=== PATIENT | male | born 1940 | race Caucasian/White ===

== ENCOUNTER 2017-11-04 06:31 | Day surgery (SDC) | payer OTHER ==
[2017-11-02 14:37] VITALS: BMI 26.0
--- NOTE | 2017-11-02 15:11 | PAT Medication Instructions ---
Service Date Nov 02, 2017. Current Home Medication List Albuterol Hfa (Ventolin Hfa), 2 PUFFS INH BID Allopurinol (Zyloprim), 300 MG PO QAM Aspirin (Aspirin Chewable), 81 MG PO HS Budesonide/Formoterol Fumarate (Symbicort 160/4.5 Inhaler ), 2 PUFFS INH BID PRN for PRN Calcitriol (Rocaltrol Cap), 1 CAP PO Thursday, Thu, Thu Coenzyme Q10 (Ubidecarenone) (Coq10), 100 MG PO QAM Diltiazem Hcl Extended Release (Diltiazem Hcl), 1 CAP PO QAM Fluticasone Propionate (Nasal) (Flonase Allergy Relief), 2 SPRAYS INTNAS PRN Furosemide (Lasix), 20 MG PO QAM Elbmatswhoc-Agwcnpuwtls-Zwb C- (Glucosamine Chondroitin), 1 TAB PO QAM Simvastatin (Zocor), 20 MG PO QPM Tiotropium [place] (Spiriva Handihaler), 1 CAP INH QAM Medication Instructions For Your Scheduled Surgery -Follow your surgeon's and medical secretary teacher's instructions for: Aspirin (Aspirin Chewable), 81 MG PO HS - Hold the following medications 2 weeks prior to surgery: Fnvjyeketfa-Httvpcsqfbi-Mop C- (Glucosamine Chondroitin), 1 TAB PO QAM Coenzyme Q10 (Ubidecarenone) (Coq10), 100 MG PO QAM - Hold the following medications the morning of surgery: Furosemide (Lasix), 20 MG PO QAM Calcitriol (Rocaltrol Cap), 1 CAP PO Thursday, Thu, Thu - Take the following medications the morning of surgery with a sip of water: Tiotropium [place] (Spiriva Handihaler), 1 CAP INH QAM Albuterol Hfa (Ventolin Hfa), 2 PUFFS INH BID Allopurinol (Zyloprim), 300 MG PO QAM Budesonide/Formoterol Fumarate (Symbicort 160/4.5 Inhaler ), 2 PUFFS INH BID PRN for PRN (if needed) Diltiazem Hcl Extended Release (Diltiazem Hcl), 1 CAP PO QAM Fluticasone Propionate (Nasal) (Flonase Allergy Relief), 2 SPRAYS INTNAS PRN ( if needed) - Take the following medications as scheduled the night before surgery: Simvastatin (Zocor), 20 MG PO QPM Albuterol Hfa (Ventolin Hfa), 2 PUFFS INH BID Budesonide/Formoterol Fumarate (Symbicort 160/4.5 Inhaler ), 2 PUFFS INH BID PRN for PRN (if needed) If you have any questions please call us at [phone] or [phone] or [phone]
[2017-11-02 16:16] LABS: CALCIUM 8.8 mg/dl (8.5-10.1); CREATININE 1.83 mg/dl (0.60-1.40); POTASSIUM 4.6 mmol/L (3.5-5.1)
[2017-11-02 16:18] LABS: PTT PATIENT 27.1 SECONDS (21.0-31.0)
[2017-11-02 16:43] LABS: BASO % 0.7 %; BASO ABS # 0.07 K/uL (0-0.2); EOS % 2.1 %; HEMATOCRIT 44.9 % (42-52); HEMOGLOBIN 14.8 g/dL (14.0-18.0); IG# 0.02 K/uL (0.00-0.02); LYMPH % 15.2 %; LYMPH ABS # 1.42 K/uL (1.2-3.4); MEAN CELL VOLUME 92.6 fL (80-100); MEAN CORPUSCULAR HEMOGLOBIN 30.5 pg (25-34); MEAN PLATELET VOLUME 11.2 fL (7.4-10.4); MONO % 6.8 %; MONO ABS # 0.64 K/uL (0.11-0.59); PLATELET COUNT 181 K/uL (130-400); RED CELL DISTRIBUTION WIDTH SD 46.9 fL (36.4-46.3); WHITE BLOOD COUNT 9.35 K/uL (4.8-10.8)
[~2017-11-04] VITALS: Ht 177.8 cm; Wt 83.0 kg
--- NOTE | 2017-11-04 05:41 | History and Physical ---
History & Physical Date of Service Nov 04, 2017. History & Physical 77-year-old gentleman presenting today for EBUS bronchoscopic evaluation of the mediastinum secondary to right upper lobe spiculated nodule and possible recurrence adenocarcinoma lung. 77-year-old male being consult for by Dr. Santiago from the Radiation Oncology Department. In 2011 the patient was noted to have a left upper lobe nodule and underwent wedge resection with lymphadenectomy by Dr. Grajeda on 12/17/2011. All lymph nodes were notably negative in the pathological size was 2.5 x 2.0 x 1.8 cm with some visceral pleural involvement but otherwise clean margins. At that time the patient was staged as 1A (pT1b, pN0, M0). Molecular analysis was notably negative. The patient was then advised to follow up clinically and radiographically with no further active treatment. Patient had a follow-up CT on 03/05/2017 which showed a 1.1 x 0.8 cm spiculated nodule in the right upper lobe retrospectively was most likely seen on a previous CT of the thorax on . The nodule did appear to grow between the 2 studies. Patient underwent a CT guided TTNA which was nondiagnostic and had a complication with pneumothorax requiring chest tube placement for lung reexpansion. Repeat/follow- up CT was performed 06/10/2017 and again on 09/08/2017. The latter study did show enlargement of the right upper lobe nodule not 1.1 x 1.1 x 1.4 cm. Patient then underwent PET-CT imaging on 10/01/2017 showing mild FDG avidity with maximum SUV of 3.05 in the posterior right parotid soft tissue nodule previously seen on prior PET from September 2011. The right upper lobe nodule had an SUV of 1.65 with no other obvious foci of disease in the hilar and/or mediastinal regions even other signs of radiographic lymph node enlargement. The patient has seen Dr. Gallego in [place] who believes this patient is a nonsurgical candidate at this time. Today the patient has no active pulmonary complaints. He currently denies: Cough , fever, chills, unintentional weight loss, pleurisy or active cardiac chest pain. Spirometry 10/02/2017 Pre FEV1/FVC 54 FEV1 1.63/61% FVC 3.03/83% DLCO 34% PmHx: 1. Moderately differentiated Adenocarcinoma lung 2. History of epistaxis 3. Parotid neoplasm PsHx: 1. Left upper lobe wedge resection and lymph node sampling 12/17/2011 2. Transthoracic needle aspiration--status post pneumothorax 04/08/2017 Social history 1. Tobacco: Former smoker/quit September 11, 2017 2. Mental status: 3. Occupation: 4. Alcohol: Family history Paternal grandfather: None known Paternal grandmother: Guided age 82 Maternal grandfather: Unknown Maternal grandmother: at age 80 Father: at age 82 of suicide Mother at age 69 of stroke Allergies 1. No Known Allergies Medications 1. Allopurinol (Zyloprim), 300 MG PO QAM 2. Aspirin (Aspirin Chewable), 81 MG PO QAM 3. Budesonide/Formoterol Fumarate (Symbicort 160/4.5 Inhaler ), 2 PUFFS INH BID 4. Calcitriol (Rocaltrol Cap), 1 CAP PO Thursday, Thu, Thu 5. Calcium Carbonate-Vitamin D (Calcium + D), PO QAM 6. Coenzyme Q10 (Ubidecarenone) (Co Q-10), PO QAM 7. Diltiazem Hcl Extended Release (Diltiazem Hcl), 1 CAP PO QAM 8. Furosemide (Lasix), 20 MG PO QAM 9. Xqqdpdnyieq-Cntqqjyiddo-Xtb C- (Glucosamine Chondroitin), 1 TAB PO QAM 10. Simvastatin (Zocor), 20 MG PO QPM 11. Tiotropium [place] (Spiriva Handihaler), 1 CAP INH QAM 12. Amlodipine DAILY 13. Fluticasone 50 MCG DAILY 14. Ventolin on a p.r.n. basis Review of Systems Constitutional: negative. Eyes: negative. ENT: negative. Cardiovascular: negative. Respiratory: negative. Gastrointestinal: negative. Genitourinary: negative. Musculoskeletal: negative. Integumentary: negative. Neurological: negative. Psychiatric: negative. Endocrine: negative. Hematologic/Lymphatic: negative. Active Problems 1. Epistaxis (R04.0) 2. 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 Tonsillar hypertrophy (J35.1) Surgical History 1. Denied: History of Surgery Family History 1. Denied: Family history of Cancer 2. Denied: Family history of Diabetes Mellitus 3. Denied: Family history of Hypertension Social History Denied: History of Alcohol Smoking Cigarettes Current Meds 1. AmLODIPine Besylate 10 MG Oral Tablet; Therapy: (Recorded:27Aug2011) to Recorded 2. Aspirin Low Dose 81 MG TABS; Therapy: (Recorded:27Aug2011) to Recorded 3. B Complex Oral Capsule; Therapy: (Recorded:27Aug2011) to Recorded 4. Calcium + D TABS; Therapy: (Recorded:27Aug2011) to Recorded 5. Co Q10 100 MG Oral Capsule; Therapy: (Recorded:27Aug2011) to Recorded 6. Fish Oil Concentrate CAPS; Therapy: (Recorded:27Aug2011) to Recorded 7. Flonase 50 MCG/ACT SUSP; Therapy: (Recorded:27Aug2011) to Recorded 8. Furosemide 20 MG Oral Tablet; TAKE 1 TABLET DAILY NEEDED; Therapy: 20Oct2017 to Recorded 9. Lasix 20 MG Oral Tablet; Therapy: (Recorded:27Aug2011) to Recorded 10. Multi-Vitamin TABS; Therapy: (Recorded:27Aug2011) to Recorded 11. Niacin 500 MG Oral Tablet; Therapy: (Recorded:27Aug2011) to Recorded 12. ProAir HFA AERS; Therapy: (Recorded:27Aug2011) to Recorded 13. Rocaltrol 0.25 MCG Oral Capsule; Take 1 capsule twice daily; Therapy: 20Oct2017 to Recorded 14. Simvastatin 20 MG Oral Tablet; TAKE 1 TABLET DAILY; Therapy: 20Oct2017 to (Evaluate:15Oct2018) Recorded 15. Ventolin HFA 108 (90 Base) MCG/ACT Inhalation Aerosol Solution; INHALE 2 PUFFS EVERY 4 HOURS NEEDED; Therapy: 20Oct2017 to Recorded 16. Zyloprim 300 MG Oral Tablet; TAKE 1 TABLET DAILY DIRECTED; Therapy: 20Oct2017 to Recorded Allergies 1. No Known Drug Allergies Vitals Vital Signs Recorded: 20Oct2017 02:23PM Blood Pressure: 126 / 80, RUE, Sitting O2 Saturation: 91, RA Height: 5 ft 9.5 in Weight: 188 lb BMI Calculated: 27.36 BSA Calculated: 2.02 Temperature: 98 F Respiration: 13 Heart Rate: 63 Physical Exam Constitutional General appearance: No acute distress, well appearing and well nourished. Eyes Conjunctiva and lids: No swelling, erythema, or discharge. Pupils and irises: Equal, round and reactive to light. Ears, Nose, Mouth, and Throat External inspection of ears and nose: Normal. Otoscopic examination: Tympanic membrance translucent with normal light reflex. Canals patent without erythema. Oropharynx: Normal with no erythema, edema, exudate or lesions. Pulmonary Respiratory effort: No increased work of breathing or signs of respiratory distress. Auscultation of lungs: Clear to auscultation. Cardiovascular Palpation of heart: Normal PMI, no thrills. Auscultation of heart: Abnormal. 2/6 systolic murmur best appreciated right upper sternal border. Examination of extremities for edema and/or varicosities: Normal. Abdomen Abdomen: Non-tender, no masses. Liver and spleen: No hepatomegaly or splenomegaly. Lymphatic Palpation of lymph nodes in neck: No lymphadenopathy. Musculoskeletal Gait and station: Normal. Digits and nails: Normal without clubbing or cyanosis. Inspection/palpation of joints, bones, and muscles: Normal. Skin Skin and subcutaneous tissue: Normal without rashes or lesions. Neurologic Cranial nerves: Cranial nerves 2-12 intact. Reflexes: 2+ and symmetric. Sensation: No sensory loss. Psychiatric Orientation to person, place and time: Normal. Mood and affect: Normal.
[~2017-11-04 06:31] MED LIST: ALLO300T2 PO; ASPCH81X PO; CALC0.2510 PO; COEN100C7 PO; DILT240C75 PO; FLUT0.15 INTNAS; FURO20TA PO; GLUCTAB7 PO; LACTATED RINGER'S 1000ML 1,000 ML IV SCH; SIMV20TA2 PO; SPRIN/30 INH; SYMIN160 INH; VNTHFA/IN INH
[2017-11-04] MEDS ORDERED: PROPOFOL IV EMULSION 10 MG/ML 20 ML VIAL IV ONE ×2 (07:02→09:20)
[2017-11-04] MEDS ORDERED: FENTANYL CITRATE INJ 50 MCG/1 ML 2 ML VIAL ONE (07:02)
[2017-11-04 07:07] VITALS: BP 187/88; PULSE 83; TEMP 36.8; O2SAT 92; Ht 177.8 cm; Wt 83.0 kg
[2017-11-04] MEDS ORDERED: PHENYLEPHRINE 100MCG/ML 5ML SYR IV PRN (07:15)
[2017-11-04] MEDS ORDERED: ATROPINE SULFATE 0.1 MG/ML 5ML SYR IV PRN (07:15)
[2017-11-04] MEDS ORDERED: HYDROmorphone INJ 1 MG/ML SYR IV PRN (07:15)
[2017-11-04] MEDS ORDERED: ONDANSETRON INJ 2 MG/ML 2 ML VIAL IV PRN (07:15)
[2017-11-04] MEDS ORDERED: EpHEDrine SULFATE INJ 50 MG/ML AMP IV PRN (07:15)
[2017-11-04] MEDS ORDERED: PROMETHAZINE HCL INJ 12.5 MG in SODIUM CHLORIDE 0.9% 50ML 50 ML IV PRN (07:15)
[2017-11-04] MEDS ORDERED: FENTANYL CITRATE INJ 50 MCG/1 ML 2 ML VIAL IV PRN (07:15)
--- NOTE | 2017-11-04 07:26 | History & Physical Bridge Note ---
H&P Re-Evaluation Bridge Note: I have examined the patient, reviewed the History & Physical and in the interval since the performance of the History & Physical I have noted the following changes of clinical significance: No changes noted
[2017-11-04] MEDS ORDERED: KETAMINE HCL INJ 50 MG/ML 10 ML VIAL ONE (07:40)
[2017-11-04] MEDS ORDERED: PHENYLEPHRINE 100MCG/ML 5ML SYR ONE (08:31)
[2017-11-04] MEDS ORDERED: EpHEDrine SULFATE 50MG/5ML SYR ONE (08:31)
[2017-11-04] MEDS ORDERED: SUCCINYLCHOLINE CHLORIDE 20 MG/ML 10 ML VIAL IV ONE (08:31)
[2017-11-04] MEDS ORDERED: ONDANSETRON INJ 2 MG/ML 2 ML VIAL ONE (08:31)
[2017-11-04] MEDS ORDERED: LIDOCAINE HCL 2% 2 ML VIAL (20MG/ML) ONE (08:33)
[2017-11-04] MEDS ORDERED: SUCCINYLCHOLINE 100MG/5ML SYR IV ONE (08:42)
[2017-11-04] MEDS ORDERED: PHENYLEPHRINE HCL INJ 10 MG/ML VIAL ONE (09:20)
--- NOTE | 2017-11-04 09:33 | Bronchoscopy Procedure Note ---
Bronchoscopy Procedure Note Procedure: Flexible-Bronchoscopy, EBUS, FNA, BAL Consent: Obtained through the patient placed into the chart Pre-Procedural Dx: History of adenocarcinoma the lung with new lung nodule Post-Procedural Dx: Lung nodule Analgesia: GETA Sedation: GETA Procedure: The Olympus video bronchoscope and EBUS scope were used for this procedure Initially the flexible bronchoscope was used for evaluation of the airways. The ET tube was notably 5cm above the level of the lemuel. Trachea: Visualized portion of the trachea was anatomically within normal limits Lemuel: Anatomically within normal limits Right bronchial tree: Right mainstem bronchus: Anatomically within normal limits Right upper lobe: Anatomically within normal limits Bronchus intermedius: Anatomically within normal limits Right middle lobe: Anatomically within normal limits Right lower lobe: Anatomically within normal limits Findings: No significant findings noted Left bronchial tree: Left mainstem bronchus: Anatomically within normal limits Left upper lobe: Suture lines intact no signs of breakdown Lingula: Suture lines intact no signs of breakdown Left lower lobe: Anatomically within normal limits Findings: No significant findings noted EBUS/JARROD: FNA Elian Stations: 7: # of passes 6 4R: # of passes 3 11R: # of passes 3 4L: # of passes 3 11L: # of passes 3 BAL: Left lower lobe EBL: 5cc Complications: None Follow-up: PACU
--- NOTE | 2017-11-04 09:38 | Discharge Instructions ---
Discharge Instructions Date of Service Nov 04, 2017. Admission Reason for Admission: Lung Nodule Discharge Discharge Diagnosis / Problem: mediastinal adenopathy Discharge Goals Goal(s): Diagnostic testing Activity Recommendations Activity Limitations: resume your previous activity . Instructions / Follow-Up Instructions / Follow-Up Follow-up with Dr. Santiago from the radiation oncology department as well as Dr. Roman from the pulmonary division Current Hospital Diet Patient's current hospital diet: Discharge Diet Recommended Diet: Regular Diet Procedures Procedures Performed: Flexible bronchoscopy, Endobronchial Ultrasound, bronchial levage, fine needle aspiration. Pending Studies Studies pending at discharge: no Medical Emergencies . Who to Call and When: Medical Emergencies: If at any time you feel your situation is an emergency, please call 911 immediately. . Non-Emergent Contact Non-Emergency issues call your: [employer] . . "Provider Documentation" section prepared by Cornel Roman. . VTE Core Measure Inpt VTE Proph given/why not?: Other Anticoagulation (aspirin)
[2017-11-04 10:35] VITALS: BP 157/78; PULSE 66; TEMP 36.5; O2SAT 96
--- NOTE | 2017-11-04 10:53 | Anesthesiology Progress Note ---
Anesthesia Post Op Note Date & Time Nov 04, 2017 at 10:53 Vital Signs Pain Intensity: 0 Vital Signs Past 12 Hours Date Time Temp Pulse Resp B/P (MAP) Pulse Ox O2 Delivery O2 Flow Rate FiO2 11/04/17 10:25 36.6 66 18 158/80 99 Room Air 11/04/17 10:15 66 18 142/86 99 Oxymask 10 11/04/17 10:05 73 18 152/87 91 Room Air 11/04/17 09:55 69 18 140/80 100 Oxymask 10 11/04/17 09:45 36.4 77 18 163/87 95 Oxymask 10 11/04/17 07:07 36.8 83 20 187/88 (121) 92 Room Air Notes Mental Status: alert / awake / arousable, participated in evaluation Pt Amnestic to Procedure: Yes Nausea / Vomiting: adequately controlled Pain: adequately controlled Airway Patency, RR, SpO2: stable & adequate BP & HR: stable & adequate Hydration State: stable & adequate Anesthetic Complications: no major complications apparent
[2017-11-04 11:04] VITALS: BP 154/80; PULSE 72; O2SAT 95
[2017-11-04 11:40] VITALS: BP 153/80; PULSE 69; O2SAT 94
[2017-11-04 12:30] VITALS: BP 148/79; PULSE 68; TEMP 36.7; O2SAT 97
== END 2017-11-04 12:55 | disposition home or self-care (01) ==
LOC: C.ACU 06:31
PROVIDERS: ATTEND Internal Medicine Critical Care Medicine
DX: R91.1 Solitary pulmonary nodule (principal); Z85.118 Personal history of other malignant neoplasm of bronchus and lung; Z87.891 Personal history of nicotine dependence; Z79.82 Long term (current) use of aspirin; Z79.899 Other long term (current) drug therapy

== ENCOUNTER → 2018-01-07 | Outpatient (CLI) | payer OTHER ==
[~2018-01-07] MED LIST changes: -LACTATED RINGER'S 1000ML 1,000 ML IV SCH
[2018-01-07 13:37] VITALS: BP 146/84; PULSE 69; TEMP 36.7; O2SAT 93
--- NOTE | 2018-01-07 15:27 | Radiation Oncology Follow-Up ---
Radiation Oncology Follow-Up Date of Visit Jan 07, 2018. Reason For Visit One-month follow-up and cancer survivorship care plan Radiation Completion Date SBRT 12/04/17 Diagnosis (1) Lung cancer Status: Acute Onset Date: 2015 Stage: l (Clinical diagnosis) Permanent Comment: Status post left upper lobectomy 12/17/2011 Adenocarcinoma Stage pT1 pN0 M0 Right upper lobe nodule Status post attempt at percutaneous biopsy unsuccessful Clinically apparent lung carcinoma EBUS November 04, 2017, nodes negative. Status post completion of radiation therapy December 04, 2017, stereotactic body radiation therapy utilizing volumetric modulated arc therapy. He received 5000 cGy. Last Edited By: Rose Mary Amezquita on Dec 11, 2017 09:33 History of Present Illness Mr. Jamie Mccurdy presented in 2011 with a left upper lobe lesion. On 2011 Dr. Grajeda performed a left upper lobe wedge resection and lymph node sampling. The aortopulmonary window node and the inferior pulmonary ligament node were benign. A total of 4 lymph nodes were sampled and all negative. The left upper lobe wedge resection confirmed an adenocarcinoma moderately differentiated measuring 2.5 x 2.0 x 1.8 cm. There was visceral pleural invasion identified but clear margins with no lymphovascular invasion appreciated. The presumption AJCC pathologic stage was pT1b pN0. Case: 12-0 -S. Molecular analysis was performed for EGFR mutation and no mutation was noted. FISH analysis was performed for ALK which was also negative. No adjuvant therapy was recommended or delivered. Patient however was followed closely. The patient had a CT scan of the chest performed on 02/02/2016. The report stated no suspicious lesions were appreciated in the lungs. However following a subsequent scan which did show a lesion in the original scan was reviewed and in retrospect that lesion was felt to have been present in January 2016. Patient had a repeat CT scan on 03/05/2017. This then showed a 1.1 x 0.8 cm spiculated nodule in the right upper lobe that was noted in retrospect on the previous scan but did appear to be slightly larger. Therefore on 04/07/[address]-guided biopsy attempt with 8 passes according to the patient. Unfortunately this result was unsuccessful and the patient developed a pneumothorax with subsequent chest tube placement. The CT-guided procedure did identify the lesion though because of respiration it was difficult to ensure adequate needle placement. On 06/10/2017 patient underwent a repeat CT of the chest without contrast. And again on 09/08/[address] scan was performed. This latter study showed a right upper lobe nodule measuring 1.1 x 1.1 x 1.4 cm clearly showing slowly progressive disease. On 10/01/2017 patient underwent a PET/CT scan. This showed mild FDG uptake with an SUV max of 3.05 in a 4.4 x 10.1 mm posterior right parotid soft tissue nodule with a short dimension of 9.7 mm previously seen on a prior PET from September 2011 which showed and intense FDG uptake with an SUV max of 5.98 in the left parotid region. Asymmetric mild increased uptake, right greater than left was noted in the tonsillar pillars without identifiable nodular mass. In the chest a very mild FDG uptake with an SUV max of 1.65 was noted corresponding to the right upper lobe lung nodule. There was no obvious foci of increased activity in the hilar or mediastinal regions. Prominent pretracheal lymph node is noted there was no evidence of disseminated disease appreciated. Patient return to see Dr. Gallego at [place]. He noted that the patient continues to have significant comorbidities and felt that he was not a surgical candidate to excise this right upper lobe lesion. Given its location he felt it would be very difficult to reach from bronchoscopic approach and he had already failed a percutaneous approach. The lesion is enlarging and appears consistent with a carcinoma. He discussed with the patient the possibility of empiric treatment of this nodule utilizing potential stereo tactic radiation His case was discussed at the lung cancer conference tumor board on 10/15/2017. The images were reviewed. Including CTs of the chest from 03/04/2017, 2016, 09/07/2007 seen as well as a PET/CT from 09/30/2017. It was recommended that he go forward with a EBUS. This was performed by Dr. Roman on 2017. Multiple FNA biopsies were taken of the lymph nodes. These did not show malignant cells. It was felt that the patient should go forward with stereotactic radiation therapy. Images were reviewed and showed progression of the lesion. He completed stereotactic body radiation therapy December 04, 2017. 5 fractions were given. He received 5000 cGy. He was treated utilizing stereotactic body radiation therapy. Interim History He has been stable over the past month. He denies any change in his respiratory status. He does get short of breath with going up steps. This is unchanged from previous. He recently had an upper respiratory infection. His was also sick. This is improving. He started using Robitussin and the cough has greatly improved. This is productive of sputum. There is no hemoptysis. He has had no fever or chills. He did not develop any areas of skin irritation following the treatment. Denied issues with fatigue. Allergies Coded Allergies: No Known Allergies (Unverified , 11/04/17) Home Medications Scheduled Albuterol Hfa (Ventolin Hfa), 2 PUFFS INH BID Allopurinol (Zyloprim), 300 MG PO QAM Aspirin (Aspirin Chewable), 81 MG PO HS Calcitriol (Rocaltrol Cap), 1 CAP PO Thursday, Thu, Thu Coenzyme Q10 (Ubidecarenone) (Coq10), 100 MG PO QAM Diltiazem Hcl Extended Release (Diltiazem Hcl), 1 CAP PO QAM Fluticasone Propionate (Nasal) (Flonase Allergy Relief), 2 SPRAYS INTNAS PRN Furosemide (Lasix), 20 MG PO QAM Pkekrbidrey-Nrhttpkifko-Ksp C- (Glucosamine Chondroitin), 1 TAB PO QAM Simvastatin (Zocor), 20 MG PO QPM Tiotropium [place] (Spiriva Handihaler), 1 CAP INH QAM Scheduled PRN Budesonide/Formoterol Fumarate (Symbicort 160/4.5 Inhaler ), 2 PUFFS INH BID PRN for PRN Review of Systems Gastrointestinal: Symptoms: WNL Oral: Symptoms: No Problems Respiratory: Symptoms: SOB With Exertion, Productive Cough Other Respiratory: Productive cough of thick yellow sputum Urinary: Symptoms: WNL, Frequency Skin: Symptoms: No Problems Additional Notes: He completed a distress management report and answer "no" to all questions. Physical Exam Vital Signs Date Time Temp Pulse Resp B/P (MAP) Pulse Ox O2 Delivery O2 Flow Rate FiO2 01/07/18 13:37 36.7 69 16 146/84 93 ECOG Performance Status: 0 General Appearance: no apparent distress Eyes: normal inspection, EOMI ENT: normal ENT inspection, hearing grossly normal Respiratory/Chest: no respiratory distress, no accessory muscle use, + decreased breath sounds Cardiovascular: regular rate, rhythm, no gallop, no murmur Neurologic/Psychiatric: no motor/sensory deficits, alert, normal mood/affect Skin: warm/dry Pain Management Patient Reports Pain: No Pain Management Plan He denies pain therefore requires no pain management. Laboratory Laboratory Results: not applicable Pathology Pathology Results: not applicable Imaging Imaging Studies: were reviewed, and pertinent findings noted in HPI Assessment & Plan Plan: The patient was also seen and examined by Dr. Sousa. We will plan a recheck CT of the chest in 3 months. Will have a visit following the CAT scan. This settled will be without contrast. He has elevated BUN and creatinine. He will continue the Robitussin for his upper respiratory infection. Today we completed a cancer survivorship care plan. A copy of the document was given to the patient. He was given a survivorship booklet. He brought in a paper today to be filled out for insurance. That was completed and a copy was put into [employer]. He may call our office if he has any questions or concerns in the interim. Assessment & Plan (Attending) I agree with note created by Rose Mary Amezquita PA-C. I reviewed the patient's chart and information with her. I have examined and evaluated the patient. I reviewed relevant clinical information and answered the patient's and/or family' s questions. 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 I spent 20 minutes reviewing information, preparing the survivorship document, and completing this note. Total Time (Attending) In Follow-Up I spent 15 minutes examining and counseling the patient. STEEPING PRESS OPERATOR Copy To Jeffry Gallego M.D.; Ti Sommer DO; Belle Sousa M.D.; Cornel Roman MD Problem Qualifiers (1) Lung cancer: Laterality: right Lung location: upper lobe of lung Qualified Codes: C34.11 - Malignant neoplasm of upper lobe, right bronchus or lung
== END | disposition home or self-care (01) ==
LOC: C.ONC 13:24
PROVIDERS: ATTEND Physician Assistant Medical
DX: Z08 Encounter for follow-up examination after completed treatment for malignant neoplasm (principal); Z92.3 Personal history of irradiation; Z85.118 Personal history of other malignant neoplasm of bronchus and lung

== ENCOUNTER 2019-09-05 08:49 | Inpatient (IN) ==
[2019-09-05] MEDS ORDERED: SODIUM CHLORIDE 0.9% 1000ML 1,000 ML IV SCH (10:00)
--- NOTE | 2019-09-05 10:18 | XRay Report ---
XR chest 1V portable CLINICAL HISTORY: 79 years-old Male presenting with weakness. TECHNIQUE: Portable upright AP view of the chest was obtained. COMPARISON: 09/02/2019. FINDINGS: Atherosclerosis and tortuosity of the thoracic aorta as on prior exam. Cardiac silhouette mildly enla rged. Heterogeneous radiolucency of the lungs. Decreased pulmonary vascular prominence. Persistent li near opacity in the right mid lung and mild added density of the right lung base. No large effusion o r pneumothorax. Degenerative changes of the thoracic spine. Osteopenia may be present. Upper abdomen normal. IMPRESSION: 1. Stable right mid lung and minimal bibasilar opacities likely atelectasis or scarring. 2. Decreased volume overload. 3. Tortuosity of the thoracic aorta. 4. Mild cardiomegaly. Electronically signed by: Garth Pickens M.D. 09/05/2019 10:17 AM
[2019-09-05 10:28] LABS: Hematocrit (blood only) 34.6 % (42-52); Hemoglobin 11.4 g/dL (14.0-18.0); Mean Corpuscular Hemoglobin 30.6 pg (25-34); Mean Corpuscular Hgb Conc 32.9 g/dL (32-36); Mean Corpuscular Volume 92.8 fL (80-100); Mean Platelet Volume 12.8 fL (7.4-10.4); Platelet Count 84 K/uL (130-400); RDW Coefficient of Variation 15.6 % (11.5-14.5); RDW Standard Deviation 50.1 fL (36.4-46.3); Red Blood Count 3.73 M/uL (4.7-6.1); White Blood Count 6.57 K/uL (4.8-10.8)
[2019-09-05 10:32] LABS: Albumin Level 2.5 gm/dl (3.4-5.0); BUN Creatinine Ratio 18.3 (10-20); Calcium 8.6 mg/dl (8.5-10.1); Creatinine Clr Calc Pharmacy 22.9 ml/min; Est GFR (African American) 25.5; Magnesium 1.8 mg/dl (1.8-2.4); Potassium 4.5 mmol/L (3.5-5.1)
[2019-09-05 10:36] LABS: Basophils # (auto) 0.01 K/uL (0-0.2); Basophils % (auto) 0.2 %; Eosinophils # (auto) 0.01 K/uL (0-0.5); Eosinophils % (auto) 0.2 %; Immature Granulocytes # (auto) 0.09 K/uL (0.00-0.02); Immature Granulocytes % (auto) 1.4 %; Lymphocytes # (auto) 0.15 K/uL (1.2-3.4); Lymphocytes % (auto) 2.3 %; Monocytes # (auto) 0.49 K/uL (0.11-0.59); Monocytes % (auto) 7.5 %; Neutrophils # (auto) 5.82 K/uL (1.4-6.5); Neutrophils % (auto) 88.4 %; Ovalocytes 1+
[2019-09-05 10:43] LABS: Albumin Globulin Ratio 0.9 (0.9-2); Bilirubin,Total 1.1 mg/dl (0.2-1); Globulin 2.9 gm/dl (2.5-4.0); Thyroid Stimulating Hormone 1.53 uIu/ml (0.300-4.500); Total Protein 5.4 gm/dl (6.4-8.2); Troponin I 0.024 ng/ml (0-0.045)
--- NOTE | 2019-09-05 12:44 | Ultrasound Report ---
BILATERAL LOWER EXTREMITY VENOUS DOPPLER CLINICAL HISTORY: BLE swelling, lung CA COMPARISON STUDY: No previous studies for comparison. TECHNIQUE: Sonography of the deep venous system of the bilateral lower extremities was performed. Co mpression and augmentation were evaluated. FINDINGS: The bilateral common femoral, superficial femoral and popliteal veins were compressible. A ugmentation was normal. Flow was shown within the deep calf vessels. IMPRESSION: No evidence of deep venous thrombus within the bilateral lower extremities. Electronically signed by: Sid Armstrong M.D. 09/05/2019 12:42 PM
[2019-09-05 13:34] LABS: Appearance Urine Clear (Clear); Bacteria Urine Automated Negative (Negative); Blood Urine Negative (Negative); Color Urine Dark Yellow; Glucose Urine UA Negative (Negative); Ketones Urine Trace (Negative); Leukocyte Esterase Urine Negative (Negative); Nitrite Urine Negative (Negative); Protein Urine Trace (Negative); RBC Urine Automated 0-4 /hpf (0-4); Specific Gravity Urine 1.021 (1.000-1.030); Urobilinogen Urine Negative (Negative)
[2019-09-05 13:37] LABS: Bilirubin Urine Negative (Negative); Ictotest Urine Negative (Negative)
--- NOTE | 2019-09-05 14:41 | Emergency Department Note ---
Entered by Rosita Gatica acting as a scribe for Iraida Shaw MD History of Present Illness General Chief complaint: Swelling/Edema to Extremity Stated complaint: SWELLING IN THE FEET, SOB Time Seen by Provider: 09/05/19 09:39 Source: patient and family (sister in law) History of Present Illness Onset (ago): day(s) 3 Location: lower extremity (bilateral) Pain Consistency: + other (episode) Maximum Pain Intensity: 0 Quality: + other (swelling/edema) Exacerbated By: + other (chemotherapy/radiation treatment) Associated symptoms: + other (weakness/exhaustion, confusion, shortness of breath, right sided abdominal pain, diarrhea, loss of appetite, decreased fluid intake) The patient is a 79 year old male that is presenting to the Emergency Room with complaints of an episode of edema in his bilateral lower legs that started after being discharged from the ED 3 days ago. His sister in law states that the patients legs have become increasingly swollen since being discharged, so she decided to bring him back in today. The patients sister in law reports that the patient was seen in the ED for increasing confusion that started around 5 days ago following his last round of chemotherapy for lung cancer with Dr. Sousa. His sister in law notes that the patient has been extremely exhausted and weak since starting his treatment. His sister in law reports that the patient has been sleeping almost constantly sitting up on the couch as he is unable to lie flat secondary to discomfort and difficulty breathing. His sister in law notes that the patient appears to be writhing in pain whenever he tries to lie flat. His sister in law states that the patient has been having difficulty breathing, but she notes that she has not been able to get an O2 saturation level on the patient for the past two days. His sister in law reports that the patient has not been willing to use his nebulizer treatment. His sister in law notes that the patient has not been eating or drinking normally but was able to drink a bottle of water yesterday. His sister in law reports that she has been able to get the patient to takes his medications. His sister in law states that the patient has had some severe right-sided abdominal pain all of last week. The patient notes that the pain is not present currently but has been located right above his right hip previously. His sister in law reports that the patient has had severe diarrhea that has subsided somewhat but is still present. His sister in law notes that the patient has a history of kidney and cardiac issues. His sister in law states that the patient has been able to urinate on his own without issue. His sister in law reports that the patient has been able to get himself to the bathroom as well but notes that he has to stop and rest on the way there. His sister in law notes that the patient has additional positive nodes outside of the lungs on the trachea in addition to the mass in his lungs. His sister in law states that the patient has possible masses in his prostate as well. Home Medications Home Medications Medication Instructions Recorded Confirmed Type fluticasone propionate 50 1 sprays INTRANASAL DAILY PRN gm 05/20/19 09/05/19 History mcg/actuation nasal spray,suspension albuterol sulfate 90 mcg/actuation 1 puffs INH Q4H PRN 05/24/19 09/05/19 History breath activated powder inhaler allopurinol 300 mg tablet 300 mg PO QAM 05/24/19 09/05/19 History budesonide-formoterol HFA 160 2 puffs INH BID 05/24/19 09/05/19 History mcg-4.5 mcg/actuation aerosol inhaler calcitriol 0.25 mcg capsule 0.25 mcg PO QAM 05/24/19 09/05/19 History furosemide 20 mg tablet 20 mg PO QAM 05/24/19 09/05/19 History tiotropium bromide 1.25 2 puffs INH QAM 05/24/19 09/05/19 History mcg/actuation mist for inhalation cholecalciferol (vitamin D3) 1,000 unit PO QAM 05/25/19 09/05/19 History [Vitamin D3] coQ10 (ubiquinol) 100 mg PO QAM 05/25/19 09/05/19 History vitamin B complex 1 tab PO QAM 05/25/19 09/05/19 History metoprolol succinate 25 mg capsule 50 mg PO QAM ea 07/20/19 09/05/19 History sprinkle, ext. release 24 hr ondansetron HCl 8 mg tablet 8 mg PO TID PRN 07/20/19 09/05/19 History prochlorperazine maleate 10 mg 10 mg PO Q6H PRN tab 07/20/19 09/05/19 History tablet simvastatin 20 mg tablet 10 mg PO [id number] tab 07/20/19 09/05/19 History albuterol sulfate 2.5 mg INHALATION Q4H PRN 09/02/19 09/05/19 History aspirin 81 mg PO HS 09/02/19 09/05/19 History carboplatin 0 mg IV WE 09/02/19 09/05/19 History dexamethasone 12 mg PO UD 09/02/19 09/05/19 History diphenhydramine HCl [Benadryl] 25 mg PO UD 09/02/19 09/05/19 History famotidine 10 mg PO UD 09/02/19 09/05/19 History loperamide [Imodium A-D] 2 mg PO Q3H PRN 09/02/19 09/05/19 History paclitaxel 0 mg IV WE 09/02/19 09/05/19 History Allergies Allergy/AdvReac Type Severity Reaction Status Date / Time No Known Allergies Allergy Verified 09/05/19 09:13 Past Med/Surg History Medical History Bronchitis (Deleted) Cancer LUNG CANCER COPD (chronic obstructive pulmonary disease) Emphysema of lung Gout Hyperlipidemia Hypertension Kidney disease (Deleted) "FOLLOWS WITH NEPHROLOGY" Lesion of left lung Osteoarthritis Prostate cancer ? NEW DX PER PETS SCAN Right pulmonary lesion Sleep apnea CPAP Surgical History H/O aortic aneurysm repair 2018 History of colonoscopy History of tooth extraction S/P bronchoscopy with biopsy (11/04/17) PER (PROCEDURE ATTEMPTED) S/P bronchoscopy with biopsy (06/10/19) Endobronchial Ultrasound with Biopsies Dr. Frazier 06/10/19 S/P partial lobectomy of lung (12/17/11) Dr. Grajeda Status post partial lobectomy of lung Family History (Updated 09/05/19 @ 15:31 by Sergio Gonzalez DO) Mother Hypertension Stroke Family history of diabetes mellitus Father Suicide Social History Preferred Language: Croatian Communication Ability: Effective Visual Impairment: No Limitations Chief Program Officer Required: No Beliefs That Will Affect Care: None marital status: Current Living Situation: Spouse current occupational status: retired Other Information That Helps Us Care for You: No Feels Safe at Home: Yes Safety Concerns: Feels Safe At This Time Smoking Status: Former smoker Tobacco Type: cigarettes ; Cigarettes Per Day: 10 ; Second Hand Exposure: No ; Hx Alcohol Use: Yes Alcohol type: wine Alcohol type Comment: rarely Hx Substance Use: No Review of Systems See HPI for pertinent positives & negatives. and A total of 10 systems reviewed and were otherwise negative Physical Exam Vital Signs Vital Signs - 24 hr 09/05/19 10:10 09/05/19 10:20 09/05/19 10:25 Pulse Rate 93 H 88 Pulse Rate [Exercises] Pulse Rate [Finger] 68 Pulse Rate from SpO2 Sensor 86 Respiratory Rate 19 19 16 Respiratory Rate [Exercises] Respiratory Effort / Characteristics Respiratory Depth Blood Pressure Blood Pressure [Right Arm] 104/68 Blood Pressure Mean Blood Pressure Mean [Right Arm] 80 Blood Pressure Position [Right Arm] Pulse Oximetry 91 97 Pulse Oximetry [Exercises] Oxygen Delivery Method Room Air Room Air Room Air 09/05/19 10:30 09/05/19 10:31 09/05/19 10:40 Pulse Rate 87 88 88 Pulse Rate [Exercises] Pulse Rate [Finger] Pulse Rate from SpO2 Sensor 100 H 96 H 85 Respiratory Rate 27 H 24 23 Respiratory Rate [Exercises] Respiratory Effort / Characteristics Respiratory Depth Blood Pressure 110/64 Blood Pressure [Right Arm] Blood Pressure Mean 76 Blood Pressure Mean [Right Arm] Blood Pressure Position [Right Arm] Pulse Oximetry 92 Pulse Oximetry [Exercises] Oxygen Delivery Method Room Air Room Air Room Air 09/05/19 10:50 09/05/19 11:00 09/05/19 11:01 Pulse Rate 88 87 87 Pulse Rate [Exercises] Pulse Rate [Finger] Pulse Rate from SpO2 Sensor 87 88 87 Respiratory Rate 21 22 21 Respiratory Rate [Exercises] Respiratory Effort / Characteristics Respiratory Depth Blood Pressure 103/52 L Blood Pressure [Right Arm] Blood Pressure Mean 70 Blood Pressure Mean [Right Arm] Blood Pressure Position [Right Arm] Pulse Oximetry 90 90 Pulse Oximetry [Exercises] Oxygen Delivery Method Room Air Room Air Room Air 09/05/19 11:10 09/05/19 11:20 09/05/19 11:21 Pulse Rate 85 86 Pulse Rate [Exercises] Pulse Rate [Finger] 88 Pulse Rate from SpO2 Sensor 86 86 Respiratory Rate 20 22 18 Respiratory Rate [Exercises] Respiratory Effort / Characteristics Non-Labored Respiratory Depth Normal Blood Pressure Blood Pressure [Right Arm] 103/53 L Blood Pressure Mean Blood Pressure Mean [Right Arm] 69 Blood Pressure Position [Right Arm] Pulse Oximetry 95 Pulse Oximetry [Exercises] Oxygen Delivery Method Room Air Room Air Room Air 09/05/19 11:30 09/05/19 11:31 09/05/19 11:40 Pulse Rate 88 85 85 Pulse Rate [Exercises] Pulse Rate [Finger] Pulse Rate from SpO2 Sensor 89 84 84 Respiratory Rate 24 19 20 Respiratory Rate [Exercises] Respiratory Effort / Characteristics Respiratory Depth Blood Pressure 114/65 Blood Pressure [Right Arm] Blood Pressure Mean 81 Blood Pressure Mean [Right Arm] Blood Pressure Position [Right Arm] Pulse Oximetry 90 Pulse Oximetry [Exercises] Oxygen Delivery Method Room Air Room Air Room Air 09/05/19 11:52 09/05/19 11:53 09/05/19 11:55 Pulse Rate 97 H 94 H Pulse Rate [Exercises] 77 Pulse Rate [Finger] Pulse Rate from SpO2 Sensor 98 H Respiratory Rate 32 H 23 Respiratory Rate [Exercises] 22 Respiratory Effort / Characteristics Respiratory Depth Blood Pressure 100/58 L Blood Pressure [Right Arm] Blood Pressure Mean 79 Blood Pressure Mean [Right Arm] Blood Pressure Position [Right Arm] Pulse Oximetry Pulse Oximetry [Exercises] 91 Oxygen Delivery Method Room Air Room Air Room Air 09/05/19 12:00 09/05/19 12:01 09/05/19 12:10 Pulse Rate 86 86 86 Pulse Rate [Exercises] Pulse Rate [Finger] Pulse Rate from SpO2 Sensor 87 86 87 Respiratory Rate 19 20 22 Respiratory Rate [Exercises] Respiratory Effort / Characteristics Respiratory Depth Blood Pressure 119/67 Blood Pressure [Right Arm] Blood Pressure Mean 80 Blood Pressure Mean [Right Arm] Blood Pressure Position [Right Arm] Pulse Oximetry 93 92 Pulse Oximetry [Exercises] Oxygen Delivery Method Room Air Room Air Room Air 09/05/19 13:00 09/05/19 13:03 09/05/19 13:10 Pulse Rate 86 93 H Pulse Rate [Exercises] Pulse Rate [Finger] 98 H Pulse Rate from SpO2 Sensor Respiratory Rate 20 20 22 Respiratory Rate [Exercises] Respiratory Effort / Characteristics Respiratory Depth Blood Pressure 127/70 Blood Pressure [Right Arm] 127/70 Blood Pressure Mean 81 Blood Pressure Mean [Right Arm] 89 Blood Pressure Position [Right Arm] Sitting Pulse Oximetry 93 Pulse Oximetry [Exercises] Oxygen Delivery Method Room Air Room Air 09/05/19 13:11 09/05/19 13:21 09/05/19 13:30 Pulse Rate 88 109 H 97 H Pulse Rate [Exercises] Pulse Rate [Finger] Pulse Rate from SpO2 Sensor Respiratory Rate 26 H 14 20 Respiratory Rate [Exercises] Respiratory Effort / Characteristics Respiratory Depth Blood Pressure 133/72 Blood Pressure [Right Arm] Blood Pressure Mean 81 Blood Pressure Mean [Right Arm] Blood Pressure Position [Right Arm] Pulse Oximetry Pulse Oximetry [Exercises] Oxygen Delivery Method Room Air Room Air Room Air 09/05/19 13:40 09/05/19 14:01 09/05/19 14:10 Pulse Rate 92 H 97 H 96 H Pulse Rate [Exercises] Pulse Rate [Finger] Pulse Rate from SpO2 Sensor Respiratory Rate 19 29 H 20 Respiratory Rate [Exercises] Respiratory Effort / Characteristics Respiratory Depth Blood Pressure Blood Pressure [Right Arm] Blood Pressure Mean Blood Pressure Mean [Right Arm] Blood Pressure Position [Right Arm] Pulse Oximetry Pulse Oximetry [Exercises] Oxygen Delivery Method Room Air Room Air Room Air 09/05/19 14:20 09/05/19 15:11 09/05/19 15:13 Pulse Rate 91 H Pulse Rate [Exercises] Pulse Rate [Finger] Pulse Rate from SpO2 Sensor Respiratory Rate 21 18 Respiratory Rate [Exercises] Respiratory Effort / Characteristics Respiratory Depth Blood Pressure 116/92 Blood Pressure [Right Arm] 116/92 Blood Pressure Mean 97 Blood Pressure Mean [Right Arm] 100 Blood Pressure Position [Right Arm] Pulse Oximetry Pulse Oximetry [Exercises] Oxygen Delivery Method Room Air Room Air Room Air 09/05/19 15:24 09/05/19 15:30 09/05/19 15:31 Pulse Rate Pulse Rate [Exercises] Pulse Rate [Finger] Pulse Rate from SpO2 Sensor 86 93 H Respiratory Rate Respiratory Rate [Exercises] Respiratory Effort / Characteristics Respiratory Depth Blood Pressure 124/61 Blood Pressure [Right Arm] Blood Pressure Mean 88 Blood Pressure Mean [Right Arm] Blood Pressure Position [Right Arm] Pulse Oximetry 90 Pulse Oximetry [Exercises] Oxygen Delivery Method Room Air Room Air Room Air 09/05/19 15:59 09/05/19 16:00 09/05/19 16:30 Pulse Rate Pulse Rate [Exercises] Pulse Rate [Finger] Pulse Rate from SpO2 Sensor Respiratory Rate Respiratory Rate [Exercises] Respiratory Effort / Characteristics Respiratory Depth Blood Pressure 143/72 H 153/79 H Blood Pressure [Right Arm] Blood Pressure Mean 92 85 Blood Pressure Mean [Right Arm] Blood Pressure Position [Right Arm] Pulse Oximetry Pulse Oximetry [Exercises] Oxygen Delivery Method Room Air Room Air Room Air 09/05/19 17:00 Pulse Rate Pulse Rate [Exercises] Pulse Rate [Finger] Pulse Rate from SpO2 Sensor Respiratory Rate Respiratory Rate [Exercises] Respiratory Effort / Characteristics Respiratory Depth Blood Pressure 166/109 H Blood Pressure [Right Arm] Blood Pressure Mean 128 Blood Pressure Mean [Right Arm] Blood Pressure Position [Right Arm] Pulse Oximetry Pulse Oximetry [Exercises] Oxygen Delivery Method Vital signs reviewed. General: Jaundiced appearing male, in no significant distress. HEENT: Mild scleral icterus, PERRLA, neck supple. Atraumatic. DMM. Cardiovascular: Regular rate and rhythm, no extra sounds. Pulmonary: Coarse breath sounds bilaterally, normal work of breathing. Abdomen: Soft, nontender, nondistended, positive bowel sounds. Musculoskeletal: Atraumatic, 3+ pitting edema to BLE. Neurologic: Patient awake alert and oriented to year and month but not age. Slightly confused but redirectable. full strength in all 4 extremities. Cranial nerves 2 through 12 grossly intact. Skin: Warm, dry, no rash Course Course 0940:The patient was evaluated in room B11B. A complete history and physical examination was performed. 1145: I reevaluated the patient at this time. He states that he does not want to stay in the hospital. Patient will undergo an ambulatory pulse ox trial at this time. 1350: I spoke with the patients sister in law at this time to update her on the patients status. 1416: I discussed the patients case with INEZ Renae, who will evaluate the patient for further management and care with Dr. Gonzalez as the attending physician. Administered Medications Allopurinol (Zyloprim) 300 mg PO QAM [facility]ERT Stop: 10/06/19 08:59 Last Admin: 09/06/19 08:33 Dose: 300 mg Documented by: [id number] Aspirin (Ecotrin Ectab) 81 mg PO HS ALBERT Stop: 10/05/19 20:59 Last Admin: 09/05/19 21:23 Dose: 81 mg Documented by: [id number] Budesonide/Formoterol Fumarate (Symbicort 160mcg/4.5mcg) 2 puffs INH BID ALBERT Stop: 10/05/19 20:59 Last Admin: 09/06/19 08:33 Dose: 2 puffs Documented by: [id number] Admin: 09/05/19 21:23 Dose: 2 puffs Documented by: [id number] Calcitriol (Rocaltrol) 0.25 mcg PO QAM [facility]1983 Stop: 10/06/19 08:59 Last Admin: 09/06/19 08:33 Dose: 0.25 mcg Documented by: [id number] Heparin Sodium (Porcine) (Heparin Sodium (Porcine)) 5,000 units SQ Q8 [facility]1983 Stop: 10/05/19 21:59 Last Admin: 09/06/19 13:42 Dose: 5,000 units Documented by: [id number] Cosigned by: [id number] Admin: 09/06/19 05:38 Dose: 5,000 units Documented by: [id number] Cosigned by: [id number] Admin: 09/05/19 21:51 Dose: Not Given Documented by: [id number] Parenteral Electrolytes (Normosol-R) 1,000 mls @ 80 mls/hr IV .[id number] [facility]1983 Stop: 09/07/19 04:14 Last Infusion: 09/06/19 17:00 Dose: 80 mls/hr Documented by: [id number] Infusion: 09/06/19 16:21 Dose: 0 mls/hr Documented by: [id number] Admin: 09/06/19 16:18 Dose: 80 mls/hr Documented by: [id number] Metoprolol Succinate ([facility] Xl) [facility] Stop: 10/06/19 08:59 Last Admin: 09/06/19 08:33 Dose: 50 mg Documented by: [id number] Simvastatin (Zocor) 10 mg PO SuMoTuWeThFr@2100 [facility]1983 Stop: 10/05/19 20:07 Last Admin: 09/05/19 21:23 Dose: 10 mg Documented by: [id number] Tiotropium [place] (Spiriva) 1 puffs INH [facility] Stop: 10/06/19 08:59 Last Admin: 09/06/19 08:34 Dose: 1 puffs Documented by: [id number] Vitamin B Complex (Vitamin B Complex) 1 [facility] Stop: 10/06/19 08:59 Last Admin: 09/06/19 08:32 Dose: 1 tab Documented by: [id number] Vitamin D (Vitamin D3) 1,000 [facility] Stop: 10/06/19 08:59 Last Admin: 09/06/19 08:33 Dose: 1,000 units Documented by: [id number] Discontinued Medications Sodium Chloride (Nss 1000ml) 1,000 mls @ 125 mls/hr IV .Q8H ALBERT Stop: 09/05/19 17:59 Last Infusion: 09/05/19 17:59 Dose: 0 mls/hr Documented by: [id number] Admin: 09/05/19 10:22 Dose: 125 mls/hr Documented by: [id number] Ceftriaxone Sodium 1,000 mg/ (Dextrose) 60 mls @ 100 mls/hr IV DAILY@2100 ALBERT; Protocol Stop: 09/12/19 20:59 Last Infusion: 09/05/19 21:50 Dose: 0 mls/hr Documented by: [id number] Admin: 09/05/19 20:54 Dose: 100 mls/hr Documented by: [id number] Medical Decision Making Differential Diagnosis Differential diagnoses includes but is not limited to toxic, metabolic, infectious, traumatic, cardiac, neurologic, hematologic, psychiatric and inflammatory etiologies. Medical Records Attestation: I reviewed the patient's medical records. Home Medications Current Medication List: was personally reviewed by me Laboratory Data Attestation: I reviewed the patient's lab results. Result diagrams: 09/06/19 06:53 09/06/19 06:53 Lab Results 09/05/19 09/05/19 09/05/19 Range/Units 09:57 09:57 10:26 WBC 6.57 (4.8-10.8) K/uL RBC 3.73 L (4.7-6.1) M/uL Hgb 11.4 L (14.0-18.0) g/dL Hct 34.6 L (42-52) % MCV 92.8 (80-100) fL MCH 30.6 (25-34) pg MCHC 32.9 (32-36) g/dL RDW Std Deviation 50.1 H (36.4-46.3) fL RDW Coeff of Brittany 15.6 H (11.5-14.5) % Plt Count 84 L (130-400) K/uL MPV 12.8 H (7.4-10.4) fL Immature Gran % (Auto) 1.4 % Neut % (Auto) 88.4 % Lymph % (Auto) 2.3 % [place] % (Auto) 7.5 % Eos % (Auto) 0.2 % Baso % (Auto) 0.2 % Immature Gran # (Auto) 0.09 H (0.00-0.02) K/uL Neut # (Auto) 5.82 (1.4-6.5) K/uL Lymph # (Auto) 0.15 L (1.2-3.4) K/uL [place] # (Auto) 0.49 (0.11-0.59) K/uL Eos # (Auto) 0.01 (0-0.5) K/uL Baso # (Auto) 0.01 (0-0.2) K/uL Ovalocytes 1+ Sodium 139 (136-145) mmol/L Potassium 4.5 (3.5-5.1) mmol/L Chloride 109 H (98-107) mmol/L Carbon Dioxide 22 (21-32) mmol/L Anion Gap 8.0 (3-11) BUN 48 H (7-18) mg/dl Creatinine 2.61 H (0.6-1.4) mg/dl Est Cr Clr Drug Dosing 22.9 ml/min Est GFR ( Amer) 25.5 Est GFR (Non-Af Amer) 22.0 BUN/Creatinine Ratio 18.3 (10-20) Glucose 99 (70-99) mg/dl Calcium 8.6 (8.5-10.1) mg/dl Magnesium 1.8 (1.8-2.4) mg/dl Total Bilirubin 1.1 H (0.2-1) mg/dl AST 9 L (15-37) U/L ALT 15 (12-78) U/L Alkaline Phosphatase 83 (45-117) U/L Ammonia 28.8 (11-32) umol/L Troponin I 0.024 (0-0.045) ng/ml Total Protein 5.4 L (6.4-8.2) gm/dl Albumin 2.5 L (3.4-5.0) gm/dl Globulin 2.9 (2.5-4.0) gm/dl Albumin/Globulin Ratio 0.9 (0.9-2) TSH 1.530 (0.300-4.500) uIu/ml Urine Color Urine Appearance (Clear) Urine pH (4.5-7.5) Ur Specific [place] (1.000-1.030) Urine Protein (Negative) Urine Glucose (UA) (Negative) Urine Ketones (Negative) Urine Blood (Negative) Urine Nitrite (Negative) Urine Bilirubin (Negative) Urine Urobilinogen (Negative) Ur Leukocyte Esterase (Negative) Urine WBC (Auto) (0-5) /hpf Urine RBC (Auto) (0-4) /hpf U Hyaline Cast (Auto) (0-5) /lpf U Epithel Cells (Auto) (0-5) /lpf Urine Bacteria (Auto) (Negative) 09/05/19 Range/Units 13:30 WBC (4.8-10.8) K/uL RBC (4.7-6.1) M/uL Hgb (14.0-18.0) g/dL Hct (42-52) % MCV (80-100) fL MCH (25-34) pg MCHC (32-36) g/dL RDW Std Deviation (36.4-46.3) fL RDW Coeff of Brittany (11.5-14.5) % Plt Count (130-400) K/uL MPV (7.4-10.4) fL Immature Gran % (Auto) % Neut % (Auto) % Lymph % (Auto) % [place] % (Auto) % Eos % (Auto) % Baso % (Auto) % Immature Gran # (Auto) (0.00-0.02) K/uL Neut # (Auto) (1.4-6.5) K/uL Lymph # (Auto) (1.2-3.4) K/uL [place] # (Auto) (0.11-0.59) K/uL Eos # (Auto) (0-0.5) K/uL Baso # (Auto) (0-0.2) K/uL Ovalocytes Sodium (136-145) mmol/L Potassium (3.5-5.1) mmol/L Chloride (98-107) mmol/L Carbon Dioxide (21-32) mmol/L Anion Gap (3-11) BUN (7-18) mg/dl Creatinine (0.6-1.4) mg/dl Est Cr Clr Drug Dosing ml/min Est GFR ( Amer) Est GFR (Non-Af Amer) BUN/Creatinine Ratio (10-20) Glucose (70-99) mg/dl Calcium (8.5-10.1) mg/dl Magnesium (1.8-2.4) mg/dl Total Bilirubin (0.2-1) mg/dl AST (15-37) U/L ALT (12-78) U/L Alkaline Phosphatase (45-117) U/L Ammonia (11-32) umol/L Troponin I (0-0.045) ng/ml Total Protein (6.4-8.2) gm/dl Albumin (3.4-5.0) gm/dl Globulin (2.5-4.0) gm/dl Albumin/Globulin Ratio (0.9-2) TSH (0.300-4.500) uIu/ml Urine Color Dark Yellow Urine Appearance Clear (Clear) Urine pH 5.0 (4.5-7.5) Ur Specific [place] 1.021 (1.000-1.030) Urine Protein Trace H (Negative) Urine Glucose (UA) Negative (Negative) Urine Ketones Trace H (Negative) Urine Blood Negative (Negative) Urine Nitrite Negative (Negative) Urine Bilirubin Negative (Negative) Urine Urobilinogen Negative (Negative) Ur Leukocyte Esterase Negative (Negative) Urine WBC (Auto) 1-5 (0-5) /hpf Urine RBC (Auto) 0-4 (0-4) /hpf U Hyaline Cast (Auto) 5-10 H (0-5) /lpf U Epithel Cells (Auto) 5-10 H (0-5) /lpf Urine Bacteria (Auto) Negative (Negative) Imaging Data Radiologist's Impression: Radiology results as stated below per my review and the radiologist's interpretation: XR chest 1V portable CLINICAL HISTORY: 79 years-old Male presenting with weakness. TECHNIQUE: Portable upright AP view of the chest was obtained. COMPARISON: 09/02/2019. FINDINGS: Atherosclerosis and tortuosity of the thoracic aorta as on prior exam. Cardiac silhouette mildly enlarged. Heterogeneous radiolucency of the lungs. Decreased pulmonary vascular prominence. Persistent linear opacity in the right mid lung and mild added density of the right lung base. No large effusion or pneumothorax. Degenerative changes of the thoracic spine. Osteopenia may be present. Upper abdomen normal. IMPRESSION: 1. Stable right mid lung and minimal bibasilar opacities likely atelectasis or scarring. 2. Decreased volume overload. 3. Tortuosity of the thoracic aorta. 4. Mild cardiomegaly. Electronically signed by: Garth Pickens M.D. 09/05/2019 10:17 AM BILATERAL LOWER EXTREMITY VENOUS DOPPLER CLINICAL HISTORY: BLE swelling, lung CA COMPARISON STUDY: No previous studies for comparison. TECHNIQUE: Sonography of the deep venous system of the bilateral lower extremities was performed. Compression and augmentation were evaluated. FINDINGS: The bilateral common femoral, superficial femoral and popliteal veins were compressible. Augmentation was normal. Flow was shown within the deep calf vessels. IMPRESSION: No evidence of deep venous thrombus within the bilateral lower extremities. Electronically signed by: Sid Armstrong M.D. 09/05/2019 12:42 PM ECG Data Attestation: I personally reviewed and interpreted this ECG as follows: Indication: + weakness Rate (beats per minute): 89 Rhythm: + normal sinus ECG Intervals/blocks: + Normal QT (440) ECG Findings: + Other (T wave flattening in inferior and lateral leads); no PACs and no PVCs Comparison ECG Date: from (09/02/19) Change: the following changes noted (T wave flattening now present) Blood Pressure Blood Pressure Findings: Normal blood pressure MDM Narrative This patient was evaluated and appeared to be in no significant distress. IV access was obtained and laboratory work was drawn. The patient was placed on the manager monitoring. Patient is found to have stable vital signs. Laboratory work reveals an acute on chronic kidney injury with a creatinine of 2.6, troponin of 0.024. Patient's albumin is noted to be low at 2.5, likely contributing to the patient's peripheral edema. Bilateral lower extremity Dopplers were performed and are negative for DVT. EKG reveals a normal sinus rhythm. Patient's [id number] is concerned about the amount of diarrhea the patient has been passing and the poor p.o. intake, likely contributing to his elevated creatinine. Patient will be evaluated by the hospitalist service for IV hydration and further management. Patient was initially reluctant but after speaking to his is agreeable with the plan. Impression & Plan Laiee-wn-bpdglik kidney injury, Dehydration, Diarrhea, Metastatic lung cancer (metastasis from lung to other site) Discharge Plan Visit Data *Final* Discharge Date/Time: 09/05/19 19:46 Chief Complaint: Swelling/Edema to Extremity Stated Complaint: SWELLING IN THE FEET, SOB ED Provider: Iraida Shaw Discharge Problem: Yykkf-ni-cyrisdz kidney injury, Dehydration, Diarrhea, Metastatic lung cancer (metastasis from lung to other site) Patient Disposition: Admitted As Inpatient Discharge Instructions Interventions: ED Discharge Assessment Last Done: 09/05/19 19:46 Discharge Problem: Apusa-gg-yisdevl kidney injury Qualifiers: Acute renal failure type: unspecified Chronic kidney disease stage: unspecified stage Qualified Code(s): N17.9 - Acute kidney failure, unspecified Diarrhea Qualifiers: Diarrhea type: unspecified type Qualified Code(s): R19.7 - Diarrhea, unspecified Metastatic lung cancer (metastasis from lung to other site) Qualifiers: Laterality: unspecified laterality Qualified Code(s): C34.90 - Malignant neoplasm of unspecified part of unspecified bronchus or lung The scribe's documentation has been prepared under my direction and personally reviewed by me in its entirety. I confirm that the note above accurately reflects all work, treatment, procedures, and medical decision making performed by me.
[2019-09-05] MEDS ORDERED: ALBUTEROL HFA INHALER 8.5 GM INH PRN (20:08)
[2019-09-05] MEDS ORDERED: ALBUTEROL 0.083% NEBU SOLN 3 ML VIAL INH PRN (20:08)
[2019-09-05] MEDS ORDERED: PROCHLORPERAZINE MALEATE 10 MG TAB PO PRN (20:08)
[2019-09-05] MEDS ORDERED: FLUTICASONE PROPIONATE NA SPR 16 GM BTL PRN (20:08)
[2019-09-05] MEDS ORDERED: ACETAMINOPHEN 325 MG TAB PO PRN (20:08)
[2019-09-05] MEDS ORDERED: ALUMINUM/MAGNESIUM SUSP 30 ML UDC PO PRN (20:08)
[2019-09-05] MEDS ORDERED: ONDANSETRON INJ 2 MG/ML 2 ML VIAL IV PRN (20:08)
[2019-09-05] MEDS ORDERED: LOPERAMIDE HCL 2 MG CAP PO PRN (20:08)
[2019-09-05] MEDS ORDERED: dexAMETHasone 4 MG TAB PO SCH (20:08)
[2019-09-05] MEDS ORDERED: FAMOTIDINE 10 MG PO SCH (20:08)
[2019-09-05] MEDS ORDERED: cefTRIAXone SODIUM 1,000 MG in DEXTROSE 5% 50 ML IV SCH (21:00)
[2019-09-05] MEDS: BUDESONIDE/FORMOTEROL FUMARATE 160/4.5 60 PUFFS/INHALER INH SCH (21:23)
[2019-09-05] MEDS: ASPIRIN 81 MG ECTAB PO SCH (21:23)
[2019-09-05] MEDS: SIMVASTATIN 10 MG TAB PO SCH (21:23)
[2019-09-05] MEDS: HEPARIN SOD 5,000 UNIT/0.5 ML VIAL SQ SCH (21:51)
--- NOTE | 2019-09-05 22:17 | Ultrasound Report ---
ULTRASOUND KIDNEYS AND BLADDER CLINICAL HISTORY: Acute renal insufficiency. COMPARISON STUDY: Abdominal CT dated 11/11/2011. TECHNIQUE: Real-time, grayscale, and color flow sonography of the kidneys and bladder is performed. I mages are reviewed in the transverse and longitudinal planes. FINDINGS: Kidneys: There is markedly asymmetric cortical atrophy of the left kidney as compared to the right. T he right kidney measures 10.4 x 4.7 x 5.1 cm and the left kidney measures 7.2 x 3.8 x 2.1 cm. There is no hydronephrosis. No shadowing renal calculi are identified. An 11 cm cyst arises from the left k idney. A 1.6 cm cyst is noted in the right kidney. There is no sonographic evidence of solid renal ma ss lesion. No perinephric fluid is identified. Bladder: The prostate gland is enlarged and heterogeneous noting median lobe hypertrophy. The bladder wall is thickened and trabeculated indicating chronic outlet obstruction. Ureteral jets were not see n. IMPRESSION: 1. There is markedly asymmetric cortical atrophy of the left kidney as compared to the right. This is similar to the 2012 CT scan. 2. No hydronephrosis is seen. 3. Prostatomegaly with evidence of chronic bladder outlet obstruction. Electronically signed by: Carlos Kaur M.D. 09/05/2019 10:15 PM
--- NOTE | 2019-09-05 22:38 | CT Scan Report ---
CT SCAN OF THE CHEST WITHOUT IV CONTRAST CLINICAL HISTORY: Sepsis. Lung cancer. COMPARISON STUDY: Chest x-ray dated 09/05/2019. Chest CT dated 05/11/2019 end 04/12/2018. TECHNIQUE: CT scan of the thorax was performed from the thoracic inlet to the upper abdomen. Images are reviewed in the axial, sagittal, and coronal planes. IV contrast was not administered for this ex amination as per the referring clinician. A dose lowering technique was utilized adhering to the amilcar Hightower. CT DOSE: 243.14 mGy.cm FINDINGS: Thyroid: Imaged portions of the thyroid gland are normal in size and heterogeneous in attenuation. Thoracic aorta: There is atherosclerotic calcification of the thoracic aorta, which is normal in daylin liliam and demonstrates standard 3-vessel arch anatomy. Heart: The heart is enlarged noting trace pericardial effusion. The coronary arteries are densely fantasma cified. Lungs and pleural spaces: Moderate to advanced emphysematous change is identified. There is ill-defin ed right perihilar soft tissue thickening/opacities as well as patchy airspace opacities in the right upper lobe. There is a trace right pleural effusion. Scarring/atelectasis is noted at both lung base s, right greater than left. Mediastinum: A precarinal node on image #126 measures 1.4 cm in short axis. Gail: Not well assessed without IV contrast. Axillae: There is no axillary lymphadenopathy. Upper abdomen: There is a small volume of perihepatic and perisplenic ascites. The imaged portions of the left colon appears thick walled and edematous. There is pericolonic infiltration and the appeara nce is consistent with a nonspecific colitis. There is markedly asymmetric cortical atrophy of the le ft kidney as compared to the right. A 1.7 cm complex/hemorrhagic cyst arises from the upper pole of t he left kidney. Skeletal structures: The skeletal structures are osteopenic. Degenerative change is noted throughout the thoracic spine. No lytic or blastic bony lesions are seen. IMPRESSION: 1. Findings are consistent with a nonspecific colitis. Clinical correlation will be required. 2. Cardiomegaly and emphysema. 3. There is ill-defined soft tissue thickening/opacification in the right perihilar region as well as patchy airspace opacities in the right upper lobe. This is been present on prior examinations and th e patient has a known history of right perihilar lung cancer. The right upper lobe opacities could re present a mild infectious/inflammatory pneumonitis, neoplasm/lymphangitic spread of tumor, or possibl y radiation pneumonitis. Clinical correlation will be essential. Attention at follow-up is recommende d. 4. Trace right pleural effusion. 5. There is a small volume of upper abdominal ascites. 6. Additional findings as above. Electronically signed by: Carlos Kaur M.D. 09/05/2019 10:36 PM
--- NOTE | 2019-09-05 23:03 | Magnetic Resonance Report ---
MRI OF THE BRAIN WITHOUT IV CONTRAST CLINICAL HISTORY: Change in mental status. COMPARISON STUDY: CT of the brain dated 09/02/2019. TECHNIQUE: MRI of the brain was performed utilizing various T1 and T2-weighted sequences in the axial , sagittal, and coronal planes. IV contrast was not administered for this examination. The examinatio n is degraded by motion artifact. FINDINGS: Brain parenchyma: There is age-related involutional change noting mild to moderate patchy subcortical and periventricular microangiopathic disease. There is no hemorrhage or mass effect. There is no res tricted diffusion to suggest acute ischemia. [place]-white matter differentiation is preserved. No extra -axial fluid collection is seen. The cerebellar tonsils are normal in configuration. Ventricles, sulci, and cisterns: Prominent secondary to involutional change. Pituitary and sella: Unremarkable. Intracranial vasculature: Normal flow voids are maintained at the skull base. Orbits: The bony orbits are grossly intact. Orbital contents are normal in appearance. Sinuses and mastoids: There is mild mucosal thickening in the right maxillary antrum. Trace mucosal t hickening is seen in the ethmoid sinuses. The remaining paranasal sinuses are clear. There is trace r ight mastoid effusion. Calvarium: Unremarkable. Cervical cord: Partially visualized cervical spinal cord is normal in morphology and signal intensity . IMPRESSION: No acute intracranial abnormality. Electronically signed by: Carlos Kaur M.D. 09/05/2019 11:02 PM
[2019-09-06] MEDS: HEPARIN SOD 5,000 UNIT/0.5 ML VIAL SQ SCH ×3 (05:38→21:14)
[2019-09-06 07:41] LABS: Hematocrit (blood only) 33.7 % (42-52); Mean Corpuscular Hemoglobin 30.3 pg (25-34); Mean Corpuscular Hgb Conc 32.6 g/dL (32-36); Mean Corpuscular Volume 92.8 fL (80-100); RDW Coefficient of Variation 15.6 % (11.5-14.5); RDW Standard Deviation 50.6 fL (36.4-46.3); Red Blood Count 3.63 M/uL (4.7-6.1); White Blood Count 6.07 K/uL (4.8-10.8)
[2019-09-06 08:01] LABS: Platelet Count 91 K/uL (130-400)
[2019-09-06 08:03] LABS: Eosinophils # (auto) 0.01 K/uL (0-0.5); Eosinophils % (auto) 0.2 %; Immature Granulocytes # (auto) 0.04 K/uL (0.00-0.02); Immature Granulocytes % (auto) 0.7 %; Lymphocytes # (auto) 0.29 K/uL (1.2-3.4); Lymphocytes % (auto) 4.8 %; Monocytes # (auto) 0.35 K/uL (0.11-0.59); Monocytes % (auto) 5.8 %; Neutrophils # (auto) 5.38 K/uL (1.4-6.5); Neutrophils % (auto) 88.5 %
[2019-09-06 08:19] LABS: Albumin Level 2.3 gm/dl (3.4-5.0); BUN Creatinine Ratio 19.4 (10-20); Calcium 8.3 mg/dl (8.5-10.1); Creatinine Clr Calc Pharmacy 26.4 ml/min; Est GFR (African American) 30.2; Est GFR (Non-African American) 26.1
[2019-09-06 08:22] LABS: Albumin Globulin Ratio 0.9 (0.9-2); Bilirubin,Total 1.1 mg/dl (0.2-1); Globulin 2.6 gm/dl (2.5-4.0); Total Protein 4.9 gm/dl (6.4-8.2)
[2019-09-06] MEDS: VITAMIN B COMPLEX TAB PO SCH (08:32)
[2019-09-06] MEDS: BUDESONIDE/FORMOTEROL FUMARATE 160/4.5 60 PUFFS/INHALER INH SCH ×2 (08:33→21:12)
[2019-09-06] MEDS: METOPROLOL SUCC 50MG EXT REL TAB PO SCH (08:33)
[2019-09-06] MEDS: CHOLECALCIFEROL 1,000 UNITS TAB PO SCH (08:33)
[2019-09-06] MEDS: CALCITRIOL 0.25 MCG CAPSULE PO SCH (08:33)
[2019-09-06] MEDS: allopurinoL 300 MG TAB PO SCH (08:33)
[2019-09-06] MEDS: TIOTROPIUM BROMIDE 5 PUFF/90 MCG INH INH SCH (08:34)
[2019-09-06] MEDS ORDERED: NON-FORMULARY MEDICATION (Coq10 (Ubiquinol) 100 MG) PO SCH (09:00)
--- NOTE | 2019-09-06 09:43 | Nephrology Consultation ---
Date of Consultation September 06, 2019 Assessment & Plan (1) Zvnlu-bu-zshxvna kidney injury: Patient with acute kidney injury on CKD likely due to prerenal azotemia in setting of poor p.o. intake and GI losses. Patient also with evidence of chronic bladder outlet obstruction. Baseline creatinine of 1.8-2. Creatinine on admission was 2.6 and slightly better today at 2.2. Urinalysis showed concentrated urine with specific gravity of 1.021 but no RBCs or casts. Renal ultrasound showing evidence of chronic bladder outlet obstruction and atrophic left kidney of 7.2 cm. Right kidney 10.4 cm -Monitor renal function with daily BMP. -Obtain a postvoid bladder scan and if patient is retaining over 200 mL, place a Quevedo catheter. (2) Metastatic cancer to lung: Patient planned for chemoradiation with paclitaxel and carboplatin. He understands that there is risk of worsening renal function with the chemotherapy regimen. He will need close monitoring of renal function and nephrology follow- up even after discharge. (3) Metabolic acidosis: Due to acute kidney injury. No need for sodium bicarbonate infusion at the moment due to signs of volume overload and acute COPD History of Present Illness Reason for Consultation: ADRIANNE Requesting Physician: Sergio Gonzalez DO Attending Physician: Pablo Hathaway MD History of Present Illness This is 79-year-old male with history of non-small cell lung cancer of the left lung status post resection in 2011 now with recurrent disease, COPD, CHF, elevated PSA of 13 and CKD stage III with baseline creatinine of 1.8-2 who was admitted on 09/05/2019 with weakness, shortness of breath and leg swelling. He was found to have acute kidney injury with creatinine of 2.6. Patient recently started chemo-radiation for his recurrent metastatic lung cancer with the paclitaxel and carboplatin. He however developed weakness and worsening shortness of breath. He reports poor p.o. intake due to poor appetite. No vomiting or diarrhea. This morning is complaining of poor appetite. His breathing is better with oxygen. He has leg swelling which is stable. No urinary symptoms. No NSAIDs. He quit smoking in 2010. 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 [place] Allergies Allergy/AdvReac Type Severity Reaction Status Date / Time No Known Allergies Allergy Verified 09/05/19 09:13 Home Medications Home Medications Medication Instructions Recorded Confirmed Type fluticasone propionate 50 1 sprays INTRANASAL DAILY PRN gm 08/09/19 11/25/19 History mcg/actuation nasal spray,suspension albuterol sulfate 90 mcg/actuation 1 puffs INH Q4H PRN 05/24/19 09/05/19 History breath activated powder inhaler allopurinol 300 mg tablet 300 mg PO QAM 05/24/19 09/05/19 History budesonide-formoterol HFA 160 2 puffs INH BID 05/24/19 09/05/19 History mcg-4.5 mcg/actuation aerosol inhaler calcitriol 0.25 mcg capsule 0.25 mcg PO QAM 05/24/19 09/05/19 History furosemide 20 mg tablet 20 mg PO QAM 05/24/19 09/05/19 History tiotropium bromide 1.25 2 puffs INH QAM 05/24/19 09/05/19 History mcg/actuation mist for inhalation cholecalciferol (vitamin D3) 1,000 unit PO QAM 05/25/19 09/05/19 History [Vitamin D3] coQ10 (ubiquinol) 100 mg PO QAM 05/25/19 09/05/19 History vitamin B complex 1 tab PO QAM 05/25/19 09/05/19 History metoprolol succinate 25 mg capsule 50 mg PO QAM ea 07/20/19 09/05/19 History sprinkle, ext. release 24 hr ondansetron HCl 8 mg tablet 8 mg PO TID PRN 07/20/19 09/05/19 History prochlorperazine maleate 10 mg 10 mg PO Q6H PRN tab 07/20/19 09/05/19 History tablet simvastatin 20 mg tablet 10 mg PO [id number] tab 07/20/19 09/05/19 History albuterol sulfate 2.5 mg INHALATION Q4H PRN 09/02/19 09/05/19 History aspirin 81 mg PO HS 09/02/19 09/05/19 History carboplatin 0 mg IV WE 09/02/19 09/05/19 History dexamethasone 12 mg PO UD 09/02/19 09/05/19 History diphenhydramine HCl [Benadryl] 25 mg PO UD 09/02/19 09/05/19 History famotidine 10 mg PO UD 09/02/19 09/05/19 History loperamide [Imodium A-D] 2 mg PO Q3H PRN 09/02/19 09/05/19 History paclitaxel 0 mg IV WE 09/02/19 09/05/19 History Patient History Medical History Bronchitis (Deleted) Cancer LUNG CANCER COPD (chronic obstructive pulmonary disease) Emphysema of lung Gout Hyperlipidemia Hypertension Kidney disease (Deleted) "FOLLOWS WITH NEPHROLOGY" Lesion of left lung Osteoarthritis Prostate cancer ? NEW DX PER PETS SCAN Right pulmonary lesion Sleep apnea CPAP Surgical History H/O aortic aneurysm repair 2018 History of colonoscopy History of tooth extraction S/P bronchoscopy with biopsy (11/04/17) PER (PROCEDURE ATTEMPTED) S/P bronchoscopy with biopsy (06/10/19) Endobronchial Ultrasound with Biopsies Dr. Frazier 06/10/19 S/P partial lobectomy of lung (12/17/11) Dr. 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: No Beliefs That Will Affect Care: None marital status: Current Living Situation: Spouse current occupational status: retired Other Information That Helps Us Care for You: No Feels Safe at Home: Yes Safety Concerns: Feels Safe At This Time Smoking Status: Former smoker Tobacco Type: cigarettes ; Cigarettes Per Day: 10 ; Second Hand Exposure: No ; Hx Alcohol Use: Yes Alcohol type: wine Alcohol type Comment: rarely Hx Substance Use: No Review of Systems Review of Systems: All systems reviewed & are unremarkable except as noted in HPI & below Physical Exam Physical Exam: General exam: Appears comfortable, no acute distress HEENT: Pupils are equal and reactive to light Neck: No JVD, neck is supple trachea is midline Respiratory system: Wheezing bilaterally. He has a scuffle lobectomy in the left lung Gastrointestinal: Abdomen is soft, non distended, non tender, bowel sounds are present CVS: Regular rate and rhythm. No murmurs, rubs or gallops Musculoskeletal: No joint or muscle tenderness Extremities: Non tender, 1+ edema, peripheral pulses are present Neuro: Oriented, no tremors, no focal neurological deficits Skin: No rashes Results & Data Vital Signs (Past 12 Hours) Vital Signs Temp Pulse Resp BP BP Pulse Ox 09/06/19 07:17 36.9 C 101 H 18 115/73 94 09/05/19 23:15 37.1 C 87 18 123/77 97 Laboratory Results Laboratory Results - last 24 hr 09/05/19 09/05/19 09/05/19 09:57 09:57 10:26 WBC 6.57 RBC 3.73 L Hgb 11.4 L Hct 34.6 L MCV 92.8 MCH 30.6 MCHC 32.9 RDW Std Deviation 50.1 H RDW Coeff of Brittany 15.6 H Plt Count 84 L MPV 12.8 H Immature Gran % (Auto) 1.4 Neut % (Auto) 88.4 Lymph % (Auto) 2.3 Greene % (Auto) 7.5 Eos % (Auto) 0.2 Baso % (Auto) 0.2 Immature Gran # (Auto) 0.09 H Neut # (Auto) 5.82 Lymph # (Auto) 0.15 L Greene # (Auto) 0.49 Eos # (Auto) 0.01 Baso # (Auto) 0.01 Ovalocytes 1+ Sodium 139 Potassium 4.5 Chloride 109 H Carbon Dioxide 22 Anion Gap 8.0 BUN 48 H Creatinine 2.61 H Est Cr Clr Drug Dosing 22.9 Est GFR ( Amer) 25.5 Est GFR (Non-Af Amer) 22.0 BUN/Creatinine Ratio 18.3 Glucose 99 POC Glucose Calcium 8.6 Magnesium 1.8 Total Bilirubin 1.1 H AST 9 L ALT 15 Alkaline Phosphatase 83 Ammonia 28.8 Troponin I 0.024 Total Protein 5.4 L Albumin 2.5 L Globulin 2.9 Albumin/Globulin Ratio 0.9 Prealbumin TSH 1.530 Urine Color Urine Appearance Urine pH Ur Specific Arma Urine Protein Urine Glucose (UA) Urine Ketones Urine Blood Urine Nitrite Urine Bilirubin Urine Urobilinogen Ur Leukocyte Esterase Urine WBC (Auto) Urine RBC (Auto) U Hyaline Cast (Auto) U Epithel Cells (Auto) Urine Bacteria (Auto) 09/05/19 09/05/19 09/06/19 13:30 20:31 06:53 WBC 6.07 RBC 3.63 L Hgb 11.0 L Hct 33.7 L MCV 92.8 MCH 30.3 MCHC 32.6 RDW Std Deviation 50.6 H RDW Coeff of Brittany 15.6 H Plt Count 91 L MPV 11.0 H Immature Gran % (Auto) 0.7 Neut % (Auto) 88.5 Lymph % (Auto) 4.8 Greene % (Auto) 5.8 Eos % (Auto) 0.2 Baso % (Auto) 0.0 Immature Gran # (Auto) 0.04 H Neut # (Auto) 5.38 Lymph # (Auto) 0.29 L Greene # (Auto) 0.35 Eos # (Auto) 0.01 Baso # (Auto) 0.00 Ovalocytes Sodium Potassium Chloride Carbon Dioxide Anion Gap BUN Creatinine Est Cr Clr Drug Dosing Est GFR ( Amer) Est GFR (Non-Af Amer) BUN/Creatinine Ratio Glucose POC Glucose Calcium Magnesium Total Bilirubin AST ALT Alkaline Phosphatase Ammonia Troponin I Total Protein Albumin Globulin Albumin/Globulin Ratio Prealbumin 11.4 L TSH Urine Color Dark Yellow Urine Appearance Clear Urine pH 5.0 Ur Specific Arma 1.021 Urine Protein Trace H Urine Glucose (UA) Negative Urine Ketones Trace H Urine Blood Negative Urine Nitrite Negative Urine Bilirubin Negative Urine Urobilinogen Negative Ur Leukocyte Esterase Negative Urine WBC (Auto) 1-5 Urine RBC (Auto) 0-4 U Hyaline Cast (Auto) 5-10 H U Epithel Cells (Auto) 5-10 H Urine Bacteria (Auto) Negative 09/06/19 09/06/19 06:53 07:40 WBC RBC Hgb Hct MCV MCH MCHC RDW Std Deviation RDW Coeff of Brittany Plt Count MPV Immature Gran % (Auto) Neut % (Auto) Lymph % (Auto) Greene % (Auto) Eos % (Auto) Baso % (Auto) Immature Gran # (Auto) Neut # (Auto) Lymph # (Auto) Greene # (Auto) Eos # (Auto) Baso # (Auto) Ovalocytes Sodium 139 Potassium 4.0 Chloride 110 H Carbon Dioxide 18 L Anion Gap 11.0 BUN 44 H Creatinine 2.27 H D Est Cr Clr Drug Dosing 26.4 Est GFR ( Amer) 30.2 Est GFR (Non-Af Amer) 26.1 BUN/Creatinine Ratio 19.4 Glucose 85 POC Glucose 90 Calcium 8.3 L Magnesium Total Bilirubin 1.1 H AST 7 L ALT 13 Alkaline Phosphatase 76 Ammonia Troponin I Total Protein 4.9 L Albumin 2.3 L Globulin 2.6 Albumin/Globulin Ratio 0.9 Prealbumin TSH Urine Color Urine Appearance Urine pH Ur Specific Arma Urine Protein Urine Glucose (UA) Urine Ketones Urine Blood Urine Nitrite Urine Bilirubin Urine Urobilinogen Ur Leukocyte Esterase Urine WBC (Auto) Urine RBC (Auto) U Hyaline Cast (Auto) U Epithel Cells (Auto) Urine Bacteria (Auto) (1) [id number] kidney injury Acute renal failure type: unspecified Chronic kidney disease stage: unspecified stage Qualified Code(s): N17.9 - Acute kidney failure, unspecified; N18.9 - Chronic kidney disease, unspecified (2) Metastatic cancer to lung Laterality: unspecified laterality Qualified Code(s): C78.00 - Secondary malignant neoplasm of unspecified lung
[2019-09-06 14:20] LABS: Cdiff Antigen Positive
[2019-09-06 14:25] LABS: Cdiff Toxin A+B Positive Cdiff Toxin (Negative)
[2019-09-06] MEDS ORDERED: NORMOSOL-R 1,000 ML IV SCH (15:45)
--- NOTE | 2019-09-06 16:09 | Hospitalist Progress Note ---
Date of Service September 06, 2019 Assessment & Plan (1) Diarrhea: C. difficile colitis --CT:Findings are consistent with a nonspecific colitis. Clinical correlation will be required. Cardiomegaly and emphysema. There is ill-defined soft tissue thickening/opacification in the right perihilar region as well as patchy airspace opacities in the right upper lobe. This is been present on prior examinations and the patient has a known history of right perihilar lung cancer. The right upper lobe opacities could represent a mild infectious/inflammatory pneumonitis, neoplasm/lymphangitic spread of tumor, or possibly radiation pneumonitis. Clinical correlation will be essential. Attention at follow-up is recommended. Trace right pleural effusion. There is a small volume of upper abdominal ascites. --Started on p.o. vancomycin Continue IV fluids Possible pneumonitis on CT Negative procalcitonin Patient denies any respiratory symptoms Monitor for now We will hold antibiotics for now ADRIANNE on CKD III Chronic bladder outlet obstruction Mild metabolic acidosis ADRIANNE likely prerenal azotemia secondary to GI losses Renal USD:There is markedly asymmetric cortical atrophy of the left kidney as compared to the right. This is similar to the 2012 CT scan. No hydronephrosis is seen. Prostatomegaly with evidence of chronic bladder outlet obstruction. Baseline creatinine 1.8-2.0 Cr:2.6>>2.27 Bladder scan as needed Appreciate Nephrology input Hold Lasix for now Metabolic encephalopathy MRI brain:No acute intracranial abnormality. Mental status improving Reorient frequently to minimize delirium Currently on chemotherapy Metastatic adenocarcinoma of lung S/P lung resection, radiation and Chemo therapy Follow-up as outpatient H/O Prostate cancer Follows with Dr. Fuentes as outpatient Hypertension Blood pressure variable Continue metoprolol COPD Continue home inhalers No signs of acute exacerbation Nebs PRN DVT Px: Heparin SQ Status Full code Disposition PT/OT prior to discharge Subjective Patient is seen and examined at bedside Has significant diarrhea today Mental status seems to be better today Denies any nausea, vomiting, abdominal pain, cough, chest pain, shortness of breath Stool for C. difficile is positive Review of Systems Review of Systems: All systems reviewed & are unremarkable except as noted in HPI & below Physical Exam Physical Exam: Physical Exam: Vitals signs as noted above General Appearance:Moderately built and nourished, Elderly, no apparent distress Head: normocephalic, Atraumatic Eyes: normal inspection, EOMI Neck: supple, Trachea midline Respiratory/Chest: Normal breath sounds, scattered wheezes Cardiovascular: S1, S2, No murmur Abdomen/GI:Soft, Non tender, Bowel sounds present Extremities/Musculoskelatal:normal inspection, Trace edema Neurologic/Psych:AAOX3, grossly no focal neurological deficits Skin: normal color, warm Results & Data Vital Signs (Past 12 Hours) Vital Signs Temp Pulse Resp BP BP Pulse Ox 09/06/19 15:12 36.6 C 102 H 20 96/60 L 97 09/06/19 07:17 36.9 C 101 H 18 115/73 94 Laboratory Results Short CBC 09/06/19 Range/Units 06:53 WBC 6.07 (4.8-10.8) K/uL Hgb 11.0 L (14.0-18.0) g/dL Hct 33.7 L (42-52) % Plt Count 91 L (130-400) K/uL BMP 09/06/19 06:53 Sodium 139 Potassium 4.0 Chloride 110 H Carbon Dioxide 18 L BUN 44 H Creatinine 2.27 H D Glucose 85 Calcium 8.3 L Liver Function 09/06/19 Range/Units 06:53 Total Bilirubin 1.1 H (0.2-1) mg/dl AST 7 L (15-37) U/L ALT 13 (12-78) U/L Alkaline Phosphatase 76 (45-117) U/L Albumin 2.3 L (3.4-5.0) gm/dl (1) Diarrhea Diarrhea type: unspecified type Qualified Code(s): R19.7 - Diarrhea, unspecified
[2019-09-06] MEDS: LACTOBACILLUS ACIDOPHILUS (FLORANEX) TAB PO SCH ×2 (18:01→21:12)
[2019-09-06] MEDS ORDERED: ACETAMINOPHEN 325 MG TAB PO STA (19:49)
[2019-09-06] MEDS: RASPBERRY SYRUP 5 ML UDP PO SCH ×2 (19:52→23:48)
[2019-09-06] MEDS: VANCOMYCIN HCL 125 MG/2.5ML SOLN PO SCH ×2 (19:52→23:48)
[2019-09-06] MEDS ORDERED: MAGNESIUM SULFATE / D5W 1 GM/100 ML BAG IV ONE (20:00)
[2019-09-06] MEDS: ASPIRIN 81 MG ECTAB PO SCH (21:12)
[2019-09-06] MEDS: SIMVASTATIN 10 MG TAB PO SCH (21:13)
[2019-09-07] MEDS: VANCOMYCIN HCL 125 MG/2.5ML SOLN PO SCH ×4 (05:03→23:26)
[2019-09-07] MEDS: RASPBERRY SYRUP 5 ML UDP PO SCH ×4 (05:03→23:26)
[2019-09-07] MEDS: HEPARIN SOD 5,000 UNIT/0.5 ML VIAL SQ SCH ×3 (05:03→21:17)
[2019-09-07 06:32] LABS: Hematocrit (blood only) 31.5 % (42-52); Hemoglobin 10.5 g/dL (14.0-18.0); Mean Corpuscular Hemoglobin 30.7 pg (25-34); Mean Corpuscular Hgb Conc 33.3 g/dL (32-36); Mean Corpuscular Volume 92.1 fL (80-100); Mean Platelet Volume 12.4 fL (7.4-10.4); Platelet Count 105 K/uL (130-400); RDW Coefficient of Variation 15.7 % (11.5-14.5); Red Blood Count 3.42 M/uL (4.7-6.1); White Blood Count 6.93 K/uL (4.8-10.8)
[2019-09-07 06:34] LABS: Appearance Urine Clear (Clear); Bacteria Urine Automated Negative (Negative); Blood Urine Negative (Negative); Color Urine Dark Yellow; Glucose Urine UA Negative (Negative); Ketones Urine Negative (Negative); Leukocyte Esterase Urine Negative (Negative); Nitrite Urine Negative (Negative); Protein Urine Trace (Negative); Specific Gravity Urine 1.022 (1.000-1.030); Urobilinogen Urine Negative (Negative)
[2019-09-07 06:35] LABS: Bilirubin Urine Negative (Negative); Ictotest Urine Negative (Negative)
[2019-09-07 06:44] LABS: BUN Creatinine Ratio 18.2 (10-20); Calcium 8.2 mg/dl (8.5-10.1); Creatinine Clr Calc Pharmacy 25.2 ml/min; Est GFR (African American) 29.4; Est GFR (Non-African American) 25.4; Magnesium 1.9 mg/dl (1.8-2.4); Potassium 3.7 mmol/L (3.5-5.1)
[2019-09-07] MEDS ORDERED: ACETAMINOPHEN 325 MG TAB PO PRN (07:01)
[2019-09-07] MEDS ORDERED: MAGNESIUM SULFATE / D5W 1 GM/100 ML BAG IV ONE (07:05)
[2019-09-07] MEDS: CALCITRIOL 0.25 MCG CAPSULE PO SCH (07:36)
[2019-09-07] MEDS: TIOTROPIUM BROMIDE 5 PUFF/90 MCG INH INH SCH (07:36)
[2019-09-07] MEDS: LACTOBACILLUS ACIDOPHILUS (FLORANEX) TAB PO SCH ×4 (07:36→21:16)
[2019-09-07] MEDS: METOPROLOL SUCC 50MG EXT REL TAB PO SCH ×2 (07:37→07:40)
[2019-09-07] MEDS: allopurinoL 300 MG TAB PO SCH (07:37)
[2019-09-07] MEDS: VITAMIN B COMPLEX TAB PO SCH (07:37)
[2019-09-07] MEDS: BUDESONIDE/FORMOTEROL FUMARATE 160/4.5 60 PUFFS/INHALER INH SCH ×2 (07:37→21:18)
[2019-09-07] MEDS: CHOLECALCIFEROL 1,000 UNITS TAB PO SCH (07:37)
[2019-09-07] MEDS ORDERED: SODIUM CHLORIDE 0.9% 1000ML 250 ML IV ONE (08:09)
--- NOTE | 2019-09-07 11:54 | Hospitalist Progress Note ---
Date of Service September 07, 2019 Assessment & Plan (1) Diarrhea: C. difficile colitis -CT:Findings are consistent with a nonspecific colitis. Clinical correlation will be required. Cardiomegaly and emphysema. There is ill-defined soft tissue thickening/opacification in the right perihilar region as well as patchy airspace opacities in the right upper lobe. This is been present on prior examinations and the patient has a known history of right perihilar lung cancer. The right upper lobe opacities could represent a mild infectious/inflammatory pneumonitis, neoplasm/lymphangitic spread of tumor, or possibly radiation pneumonitis. Clinical correlation will be essential. Attention at follow-up is recommended. Trace right pleural effusion. There is a small volume of upper abdominal ascites. -Continue oral vancomycin every 6 hours -patient was given IV fluids -admission blood cultures with no growth to date, patient did have mildly elevated temperature 100.76 F on AM 09/07/19, blood cultures redrawn Possible pneumonitis on CT -Negative procalcitonin -Patient denies any respiratory symptoms COPD -Continue home inhalers -patient reports he uses supplementary oxygen only with sleep -No signs of acute exacerbation of COPD -Nebs PRN Metastatic adenocarcinoma of lung -S/P lung resection, radiation and Chemo therapy Prostate cancer -Follows with Dr. Fuentes as outpatient Acute Kidney Injury on Chronic Kidney Disease stage III Metabolic Acidosis -Chronic bladder outlet obstruction -Mild metabolic acidosis on admission -admission creatinine 2.61 -ADRIANNE likely prerenal azotemia secondary to GI losses -Renal USD:There is markedly asymmetric cortical atrophy of the left kidney as compared to the right. This is similar to the 2012 CT scan. No hydronephrosis is seen. Prostatomegaly with evidence of chronic bladder outlet obstruction. Baseline creatinine 1.8-2.0 -creatinine downtrended to 2.27 and 2.32. encourage oral hydration. give low dose IV fluids Hypertension -Blood pressure variable -Continue metoprolol Metabolic encephalopathy -MRI brain:No acute intracranial abnormality. -Mental status appears to be at baseline currently DVT Px: Heparin SQ Status Full code PT/OT Subjective Nurse reports that patient continues to have loose stools/diarrhea. Patient denies abdominal pain. denies vomiting. denies chest pain. he reports he uses supplementary oxygen only with sleep. Review of Systems Review of Systems: All systems reviewed & are unremarkable except as noted in HPI & below Physical Exam Constitutional: comfortable Eyes: PERRL, conjunctivae normal, anicteric sclerae EOM intact bilaterally ENMT: external ear and nose normal, oropharynx normal Neck: normal visual inspection Respiratory: normal respiratory effort, lungs clear to auscultation Cardiovascular: RRR, no murmur, no edema Gastrointestinal (Abdomen): normal bowel sounds, soft, nontender, no hepatosplenomegaly Musculoskeletal: Head/Neck/Chest: normocephalic and head atraumatic Neurologic: PERRL, EOMI, accommodation nl, no face palsy, no dysarthria Psychiatric: A+Ox3, euthymic affect Results & Data Vital Signs (Past 12 Hours) Vital Signs Temp Pulse Resp BP BP Pulse Ox 09/07/19 09:25 36.5 C 112 H 20 83/52 L 91/63 L 09/07/19 08:09 112 H 101/66 09/07/19 07:49 38.2 C H 111 H 16 86/46 L 90 09/07/19 04:00 37.5 C 96 H 20 90/56 L 93 09/06/19 23:58 37.0 C 112 H 18 91/47 L 92 (1) Diarrhea Diarrhea type: unspecified type Qualified Code(s): R19.7 - Diarrhea, unspecified
[2019-09-07] MEDS ORDERED: SODIUM CHLORIDE 0.9% 1000ML 1,000 ML IV SCH (12:00)
--- NOTE | 2019-09-07 17:22 | Nephrology Progress Note ---
Date of Service September 07, 2019 Assessment & Plan (1) Owgyo-ct-[id number] kidney injury: Patient with acute kidney injury on CKD likely due to prerenal azotemia in setting of poor p.o. intake and GI losses. Patient also with evidence of chronic bladder outlet obstruction. Baseline creatinine of 1.8-2. Creatinine on admission was 2.6 and stable today at 2.3. Urinalysis showed concentrated urine with specific gravity of 1.021 but no RBCs or casts. Renal ultrasound showing evidence of chronic bladder outlet obstruction and atrophic left kidney of 7.2 cm. Right kidney 10.4 cm -Monitor renal function with daily BMP. -Obtain a postvoid bladder scan and if patient is retaining over 200 mL, place a Quevedo catheter. (2) Metastatic cancer to lung: Patient planned for chemoradiation with paclitaxel and carboplatin. He understands that there is risk of worsening renal function with the chemotherapy regimen. He will need close monitoring of renal function and nephrology follow- up even after discharge. (3) Metabolic acidosis: Due to acute kidney injury. No need for sodium bicarbonate infusion at the moment due to signs of volume overload and acute COPD Subjective Complain of fatigue. No SOB or urinary symptoms. Cr stable Review of Systems Review of Systems: All systems reviewed & are unremarkable except as noted in HPI & below Physical Exam Physical Exam: General exam: Appears comfortable, no acute distress HEENT: Pupils are equal and reactive to light Neck: No JVD, neck is supple trachea is midline Respiratory system: Clear breath sounds bilaterally. Gastrointestinal: Abdomen is soft, non distended, non tender, bowel sounds are present CVS: Regular rate and rhythm. No murmurs, rubs or gallops Musculoskeletal: No joint or muscle tenderness Extremities: Non tender, 1+ edema, peripheral pulses are present Neuro: Oriented, no tremors, no focal neurological deficits Skin: No rashes Results & Data Vital Signs (Past 12 Hours) Vital Signs Temp Pulse Resp BP BP Pulse Ox 09/07/19 14:59 36.5 C 102 H 16 108/72 96 09/07/19 09:25 36.5 C 112 H 20 83/52 L 91/63 L 09/07/19 08:09 112 H 101/66 09/07/19 07:49 38.2 C H 111 H 16 86/46 L 90 Laboratory Results Laboratory Results - last 24 hr 09/06/19 09/06/19 09/06/19 20:08 20:08 20:45 WBC RBC Hgb Hct MCV MCH MCHC RDW Std Deviation RDW Coeff of Brittany Plt Count MPV Sodium Potassium Chloride Carbon Dioxide Anion Gap BUN Creatinine Est Cr Clr Drug Dosing Est GFR ( Amer) Est GFR (Non-Af Amer) BUN/Creatinine Ratio Glucose POC Glucose 115 H Lactate 0.8 Calcium Magnesium 1.7 L Urine Color Urine Appearance Urine pH Ur Specific [place] Urine Protein Urine Glucose (UA) Urine Ketones Urine Blood Urine Nitrite Urine Bilirubin Urine Urobilinogen Ur Leukocyte Esterase Urine WBC (Auto) Urine RBC (Auto) U Hyaline Cast (Auto) U Epithel Cells (Auto) Urine Bacteria (Auto) 09/07/19 09/07/19 09/07/19 05:10 05:30 05:30 WBC 6.93 RBC 3.42 L Hgb 10.5 L Hct 31.5 L MCV 92.1 MCH 30.7 MCHC 33.3 RDW Std Deviation 51.0 H RDW Coeff of Brittany 15.7 H Plt Count 105 L MPV 12.4 H Sodium 138 Potassium 3.7 Chloride 107 Carbon Dioxide 21 Anion Gap 10.0 BUN 42 H Creatinine 2.32 H Est Cr Clr Drug Dosing 25.2 Est GFR ( Amer) 29.4 Est GFR (Non-Af Amer) 25.4 BUN/Creatinine Ratio 18.2 Glucose 93 POC Glucose Lactate Calcium 8.2 L Magnesium 1.9 Urine Color Dark Yellow Urine Appearance Clear Urine pH 5.0 Ur Specific [place] 1.022 Urine Protein Trace H Urine Glucose (UA) Negative Urine Ketones Negative Urine Blood Negative Urine Nitrite Negative Urine Bilirubin Negative Urine Urobilinogen Negative Ur Leukocyte Esterase Negative Urine WBC (Auto) 1-5 Urine RBC (Auto) 5-10 H U Hyaline Cast (Auto) 1-5 U Epithel Cells (Auto) 5-10 H Urine Bacteria (Auto) Negative 09/07/19 09/07/19 07:55 11:55 WBC RBC Hgb Hct MCV MCH MCHC RDW Std Deviation RDW Coeff of Brittany Plt Count MPV Sodium Potassium Chloride Carbon Dioxide Anion Gap BUN Creatinine Est Cr Clr Drug Dosing Est GFR ( Amer) Est GFR (Non-Af Amer) BUN/Creatinine Ratio Glucose POC Glucose 96 112 H Lactate Calcium Magnesium Urine Color Urine Appearance Urine pH Ur Specific [place] Urine Protein Urine Glucose (UA) Urine Ketones Urine Blood Urine Nitrite Urine Bilirubin Urine Urobilinogen Ur Leukocyte Esterase Urine WBC (Auto) Urine RBC (Auto) U Hyaline Cast (Auto) U Epithel Cells (Auto) Urine Bacteria (Auto) (1) [id number] kidney injury Acute renal failure type: unspecified Chronic kidney disease stage: unspecified stage Qualified Code(s): N17.9 - Acute kidney failure, unspecified; N18.9 - Chronic kidney disease, unspecified (2) Metastatic cancer to lung Laterality: unspecified laterality Qualified Code(s): C78.00 - Secondary malignant neoplasm of unspecified lung
[2019-09-07] MEDS: ASPIRIN 81 MG ECTAB PO SCH (21:17)
[2019-09-07] MEDS: SIMVASTATIN 10 MG TAB PO SCH (21:18)
[2019-09-08] MEDS: VANCOMYCIN HCL 125 MG/2.5ML SOLN PO SCH ×4 (05:57→23:40)
[2019-09-08] MEDS: RASPBERRY SYRUP 5 ML UDP PO SCH ×4 (05:57→23:40)
[2019-09-08] MEDS: HEPARIN SOD 5,000 UNIT/0.5 ML VIAL SQ SCH ×3 (05:57→21:12)
[2019-09-08 06:52] LABS: Albumin Level 1.9 gm/dl (3.4-5.0); BUN Creatinine Ratio 16.8 (10-20); Calcium 8.1 mg/dl (8.5-10.1); Creatinine Clr Calc Pharmacy 25.1 ml/min; Est GFR (African American) 29.3; Est GFR (Non-African American) 25.3; Magnesium 2.1 mg/dl (1.8-2.4); Potassium 3.6 mmol/L (3.5-5.1)
[2019-09-08 06:57] LABS: Albumin Globulin Ratio 0.7 (0.9-2); Bilirubin,Total 0.5 mg/dl (0.2-1); Globulin 2.7 gm/dl (2.5-4.0); Total Protein 4.6 gm/dl (6.4-8.2)
[2019-09-08] MEDS: LACTOBACILLUS ACIDOPHILUS (FLORANEX) TAB PO SCH ×4 (09:18→21:09)
[2019-09-08] MEDS: TIOTROPIUM BROMIDE 5 PUFF/90 MCG INH INH SCH (09:19)
[2019-09-08] MEDS: BUDESONIDE/FORMOTEROL FUMARATE 160/4.5 60 PUFFS/INHALER INH SCH ×2 (09:20→21:08)
[2019-09-08] MEDS: METOPROLOL SUCC 50MG EXT REL TAB PO SCH (09:21)
[2019-09-08] MEDS: VITAMIN B COMPLEX TAB PO SCH (09:21)
[2019-09-08] MEDS: CHOLECALCIFEROL 1,000 UNITS TAB PO SCH (09:22)
[2019-09-08] MEDS: allopurinoL 300 MG TAB PO SCH (09:22)
--- NOTE | 2019-09-08 10:20 | XRay Report ---
XR chest 1V portable CLINICAL HISTORY: 79 years-old Male presenting with hypoxia, rule out lung infiltrates. TECHNIQUE: Portable upright AP view of the chest was obtained. COMPARISON: 09/05/2019. FINDINGS: Tortuosity and atherosclerosis of the thoracic aorta. Cardiac silhouette mildly enlarged. Persistent bandlike opacity in the right mid lung as well as bibasilar opacities, right greater than left. This has increased on the right since prior exam. Lungs may be mildly hyperinflated. Trace bilateral pleur al effusion suspected. Diffusely heterogeneous lung parenchyma. No large pneumothorax. Degenerative c hanges of the thoracic spine. Upper abdomen normal. IMPRESSION: 1. Increasing right basilar infiltrate concerning for infection or aspiration among other possibilit ies. This is increased since the prior radiograph. 2. Trace pleural effusions. 3. Underlying emphysema and mild cardiomegaly. Electronically signed by: Garth Pickens M.D. 09/08/2019 10:19 AM
[2019-09-08] MEDS ORDERED: AMOXICILLIN/CLAVULANATE 500 MG TAB PO ONE (10:58)
[2019-09-08] MEDS: CALCITRIOL 0.25 MCG CAPSULE PO SCH (11:51)
--- NOTE | 2019-09-08 11:51 | Hospitalist Progress Note ---
Date of Service September 08, 2019 Assessment & Plan (1) Diarrhea: C. difficile colitis -CT:Findings are consistent with a nonspecific colitis. Clinical correlation will be required. Cardiomegaly and emphysema. There is ill-defined soft tissue thickening/opacification in the right perihilar region as well as patchy airspace opacities in the right upper lobe. This is been present on prior examinations and the patient has a known history of right perihilar lung cancer. The right upper lobe opacities could represent a mild infectious/inflammatory pneumonitis, neoplasm/lymphangitic spread of tumor, or possibly radiation pneumonitis. Clinical correlation will be essential. Attention at follow-up is recommended. Trace right pleural effusion. There is a small volume of upper abdominal ascites. -Continue oral vancomycin every 6 hours -patient was given IV fluids -admission blood cultures with no growth to date, patient did have mildly elevated temperature 100.76 F on AM 09/07/19, blood cultures redrawn -no positive blood cultures at this time COPD Possible pneumonitis on CT, possible pneumonia Atrial fibrillation suspected -patient reports he uses supplementary oxygen only with sleep at baseline -Negative procalcitonin on admission -on home inhalers for COPD -Patient denies any respiratory symptoms -09/08/19: No acute respiratory distress but he required oxygen supplementation even during the day time. 2 step test shows that patient needs 2 liters/minute oxygen at all times. Chest X ray 1 view shows some increase of right lung infiltrates and it is possible that patient may have pneumonia. started on oral Augmentin and Doxycycline. Vital signs have occasional recorded heart rate above 110 bpm. EKG was performed had shows possible atrial fibrillation. Discussed with patient's family member sister ([phone]) of having patient monitored on telemetry to see if there is new onset atrial fibrillation Metastatic adenocarcinoma of lung -S/P lung resection, radiation and Chemo therapy Prostate cancer -Follows with Dr. Fuentes as outpatient Acute Kidney Injury on Chronic Kidney Disease stage III Metabolic Acidosis -Chronic bladder outlet obstruction -Mild metabolic acidosis on admission -admission creatinine 2.61 -ADRIANNE likely prerenal azotemia secondary to GI losses -Renal USD:There is markedly asymmetric cortical atrophy of the left kidney as compared to the right. This is similar to the 2012 CT scan. No hydronephrosis is seen. Prostatomegaly with evidence of chronic bladder outlet obstruction. Baseline creatinine 1.8-2.0 -creatinine downtrended to 2.27 and 2.32 and 2.33 on recent creatinine after IV fluids Hypertension -Blood pressure variable -Continue metoprolol for heart rate control Metabolic encephalopathy -MRI brain:No acute intracranial abnormality. -Mental status appears to be at baseline currently DVT Px: Heparin SQ Status Full code PT/OT Subjective Patient seen and examined at bedside. No acute respiratory distress but he required oxygen supplementation even during the day time. 2 step test shows that patient needs 2 liters/minute oxygen at all times. Chest X ray 1 view shows some increase of right lung infiltrates and it is possible that patient may have pneumonia. started on oral Augmentin and Doxycycline. Vital signs have occasional recorded heart rate above 110 bpm. EKG was performed had shows possible atrial fibrillation. Discussed with patient's family member sister ([phone]) of having patient monitored on telemetry to see if there is new onset atrial fibrillation. Patient denies pain. he is awake and alert and follows directions. He denies of any symptoms Review of Systems Review of Systems: All systems reviewed & are unremarkable except as noted in HPI & below Physical Exam Constitutional: comfortable Eyes: PERRL, conjunctivae normal, anicteric sclerae EOM intact bilaterally ENMT: external ear and nose normal, oropharynx normal Neck: normal visual inspection Respiratory: normal respiratory effort, lungs clear to auscultation Cardiovascular: Rate/Rhythm: regular rate Gastrointestinal (Abdomen): normal bowel sounds, soft, nontender, no hepatosplenomegaly Musculoskeletal: Head/Neck/Chest: normocephalic and head atraumatic Neurologic: PERRL, EOMI, accommodation nl, no face palsy, no dysarthria Psychiatric: A+Ox3, euthymic affect Results & Data Vital Signs (Past 12 Hours) Vital Signs Temp Pulse Pulse Pulse Pulse Pulse Resp 09/08/19 10:41 102 H 115 H 110 H 104 H 09/08/19 09:15 104 H 09/08/19 07:00 36.4 C L 102 H 18 09/08/19 04:22 36.3 C L 98 H 20 Resp Resp Resp Resp BP BP Pulse Ox 09/08/19 10:41 20 22 24 18 09/08/19 09:15 103/65 94 09/08/19 07:00 99/63 L 92 11/28/19 04:22 101/69 95 Pulse Ox Pulse Ox Pulse Ox Pulse Ox 09/08/19 10:41 92 90 91 87 L 09/08/19 09:15 09/08/19 07:00 09/08/19 04:22 (1) Diarrhea Diarrhea type: unspecified type Qualified Code(s): R19.7 - Diarrhea, unspecified
[2019-09-08] MEDS: DOXYCYCLINE HYCLATE 100 MG CAP PO SCH ×2 (14:07→21:10)
[2019-09-08] MEDS: AMOXICILLIN/CLAVULANATE 500 MG TAB PO SCH (17:38)
[2019-09-08] MEDS: ASPIRIN 81 MG ECTAB PO SCH (21:09)
[2019-09-08] MEDS: SIMVASTATIN 10 MG TAB PO SCH (21:12)
[2019-09-09] MEDS: VANCOMYCIN HCL 125 MG/2.5ML SOLN PO SCH ×3 (06:25→17:12)
[2019-09-09] MEDS: HEPARIN SOD 5,000 UNIT/0.5 ML VIAL SQ SCH ×2 (06:25→14:40)
[2019-09-09] MEDS: RASPBERRY SYRUP 5 ML UDP PO SCH ×4 (06:25→23:29)
[2019-09-09 07:33] LABS: Hemoglobin 10.1 g/dL (14.0-18.0); Mean Corpuscular Hemoglobin 30.2 pg (25-34); Mean Corpuscular Volume 92.8 fL (80-100); Red Blood Count 3.34 M/uL (4.7-6.1); White Blood Count 5.98 K/uL (4.8-10.8)
[2019-09-09 07:34] LABS: Mean Platelet Volume 11.6 fL (7.4-10.4); Platelet Count 109 K/uL (130-400); RDW Coefficient of Variation 16.1 % (11.5-14.5); RDW Standard Deviation 52.3 fL (36.4-46.3)
[2019-09-09 07:52] LABS: Albumin Level 1.9 gm/dl (3.4-5.0); BUN Creatinine Ratio 15.6 (10-20); Calcium 8.2 mg/dl (8.5-10.1); Creatinine Clr Calc Pharmacy 21.1 ml/min; Est GFR (African American) 23.6; Est GFR (Non-African American) 20.3; Potassium 3.6 mmol/L (3.5-5.1)
[2019-09-09 07:54] LABS: Albumin Globulin Ratio 0.7 (0.9-2); Bilirubin,Total 0.4 mg/dl (0.2-1); Globulin 2.5 gm/dl (2.5-4.0); Total Protein 4.4 gm/dl (6.4-8.2)
[2019-09-09 08:18] LABS: Dohle Bodies 1+; Echinocytes 1+; Eosinophils # (auto) 0.02 K/uL (0-0.5); Eosinophils % (auto) 0.3 %; Immature Granulocytes # (auto) 0.03 K/uL (0.00-0.02); Immature Granulocytes % (auto) 0.5 %; Lymphocytes # (auto) 0.56 K/uL (1.2-3.4); Lymphocytes % (auto) 9.4 %; Mean Corpuscular Hgb Conc 32.6 g/dL (32-36); Monocytes # (auto) 0.57 K/uL (0.11-0.59); Monocytes % (auto) 9.5 %; Neutrophils % (auto) 80.3 %; Ovalocytes 1+
[2019-09-09] MEDS: LACTOBACILLUS ACIDOPHILUS (FLORANEX) TAB PO SCH ×4 (09:11→20:40)
[2019-09-09] MEDS: allopurinoL 300 MG TAB PO SCH (09:11)
[2019-09-09] MEDS: DOXYCYCLINE HYCLATE 100 MG CAP PO SCH (09:11)
[2019-09-09] MEDS: CHOLECALCIFEROL 1,000 UNITS TAB PO SCH (09:11)
[2019-09-09] MEDS: TIOTROPIUM BROMIDE 5 PUFF/90 MCG INH INH SCH (09:12)
[2019-09-09] MEDS: BUDESONIDE/FORMOTEROL FUMARATE 160/4.5 60 PUFFS/INHALER INH SCH ×2 (09:12→20:40)
[2019-09-09] MEDS: AMOXICILLIN/CLAVULANATE 500 MG TAB PO SCH ×2 (09:12→17:13)
[2019-09-09] MEDS: CALCITRIOL 0.25 MCG CAPSULE PO SCH (09:12)
[2019-09-09] MEDS: VITAMIN B COMPLEX TAB PO SCH (09:13)
[2019-09-09] MEDS: METOPROLOL SUCC 50MG EXT REL TAB PO SCH (09:17)
--- NOTE | 2019-09-09 09:59 | Nephrology Progress Note ---
Date of Service September 09, 2019 Assessment & Plan (1) Uaetg-bo-sqvmcxz kidney injury: Patient with acute kidney injury on CKD likely due to prerenal azotemia in setting of poor p.o. intake and GI losses. Patient also with evidence of chronic bladder outlet obstruction. Baseline creatinine of 1.8-2. Creatinine on admission was 2.6. Creatinine today up to 2.79. This is likely due to hypotension yesterday. Urinalysis showed concentrated urine with specific gravity of 1.021 but no RBCs or casts. Renal ultrasound showing evidence of chronic bladder outlet obstruction and atrophic left kidney of 7.2 cm. Right kidney 10.4 cm -Monitor renal function with daily BMP. -We will reduce metoprolol to 25 mg daily starting tomorrow. -Patient needs a nutrition consult to improve his hypoalbuminemia (2) Metastatic cancer to lung: Patient planned for chemoradiation with paclitaxel and carboplatin. He understands that there is risk of worsening renal function with the chemotherapy regimen. He will need close monitoring of renal function and nephrology follow- up even after discharge. (3) Metabolic acidosis: Due to acute kidney injury. Improved. Recommend monitoring closely as patient has diarrhea. Subjective He is complaining of poor appetite. No vomiting. He still has diarrhea but the frequency is reduced. No pain. Creatinine is up trending. His blood pressure has been low Review of Systems Review of Systems: All systems reviewed & are unremarkable except as noted in HPI & below Physical Exam Physical Exam: General exam: Appears comfortable, no acute distress HEENT: Pupils are equal and reactive to light Neck: No JVD, neck is supple trachea is midline Respiratory system: Clear breath sounds bilaterally. Gastrointestinal: Abdomen is soft, non distended, non tender, bowel sounds are present CVS: Regular rate and rhythm. No murmurs, rubs or gallops Musculoskeletal: No joint or muscle tenderness Extremities: Non tender, 1+ edema, peripheral pulses are present Neuro: Oriented, no tremors, no focal neurological deficits Skin: No rashes Results & Data Vital Signs (Past 12 Hours) Vital Signs Temp Pulse Resp BP BP Pulse Ox 09/09/19 09:18 52 L 100/63 09/09/19 08:20 36.5 C 96 H 16 98/60 L 96 09/09/19 03:24 36.4 C L 112 H 22 102/63 97 09/08/19 23:41 36.4 C L 108 H 17 115/74 96 Laboratory Results Laboratory Results - last 24 hr 09/08/19 09/08/19 09/09/19 11:39 16:33 07:23 WBC 5.98 RBC 3.34 L Hgb 10.1 L Hct 31.0 L MCV 92.8 MCH 30.2 MCHC 32.6 RDW Std Deviation 52.3 H RDW Coeff of Brittany 16.1 H Plt Count 109 L MPV 11.6 H Immature Gran % (Auto) 0.5 Neut % (Auto) 80.3 Lymph % (Auto) 9.4 [place] % (Auto) 9.5 Eos % (Auto) 0.3 Baso % (Auto) 0.0 Immature Gran # (Auto) 0.03 H Neut # (Auto) 4.80 Lymph # (Auto) 0.56 L [place] # (Auto) 0.57 Eos # (Auto) 0.02 Baso # (Auto) 0.00 Dohle Bodies 1+ Ovalocytes 1+ Echinocytes 1+ Sodium Potassium Chloride Carbon Dioxide Anion Gap BUN Creatinine Est Cr Clr Drug Dosing Est GFR ( Amer) Est GFR (Non-Af Amer) BUN/Creatinine Ratio Glucose POC Glucose 146 H 122 H Calcium Phosphorus Magnesium Total Bilirubin AST ALT Alkaline Phosphatase Total Protein Albumin Globulin Albumin/Globulin Ratio 09/09/19 09/09/19 07:23 07:35 WBC RBC Hgb Hct MCV MCH MCHC RDW Std Deviation RDW Coeff of Brittany Plt Count MPV Immature Gran % (Auto) Neut % (Auto) Lymph % (Auto) [place] % (Auto) Eos % (Auto) Baso % (Auto) Immature Gran # (Auto) Neut # (Auto) Lymph # (Auto) [place] # (Auto) Eos # (Auto) Baso # (Auto) Dohle Bodies Ovalocytes Echinocytes Sodium 139 Potassium 3.6 Chloride 109 H Carbon Dioxide 23 Anion Gap 7.0 BUN 43 H Creatinine 2.79 H D Est Cr Clr Drug Dosing 21.1 Est GFR ( Amer) 23.6 Est GFR (Non-Af Amer) 20.3 BUN/Creatinine Ratio 15.6 Glucose 111 H POC Glucose 117 H Calcium 8.2 L Phosphorus 4.0 Magnesium 2.0 Total Bilirubin 0.4 AST 10 L ALT 12 Alkaline Phosphatase 71 Total Protein 4.4 L Albumin 1.9 L Globulin 2.5 Albumin/Globulin Ratio 0.7 L (1) Yilim-[id number]-[id number] kidney injury Acute renal failure type: unspecified Chronic kidney disease stage: unsp ecified stage Qualified Code(s): N17.9 - Acute kidney failure, unspecified; N18.9 - Chronic kidney disease, unspecified (2) Metastatic cancer to lung Laterality: unspecified laterality Qualified Code(s): C78.00 - Secondary malignant neoplasm of unspecified lung
--- NOTE | 2019-09-09 10:10 | Hospitalist Progress Note ---
Date of Service September 09, 2019 Assessment & Plan (1) Diarrhea: C. difficile colitis -CT:Findings are consistent with a nonspecific colitis. Clinical correlation will be required. Cardiomegaly and emphysema. There is ill-defined soft tissue thickening/opacification in the right perihilar region as well as patchy airspace opacities in the right upper lobe. This is been present on prior examinations and the patient has a known history of right perihilar lung cancer. The right upper lobe opacities could represent a mild infectious/inflammatory pneumonitis, neoplasm/lymphangitic spread of tumor, or possibly radiation pneumonitis. Clinical correlation will be essential. Attention at follow-up is recommended. Trace right pleural effusion. There is a small volume of upper abdominal ascites. -Continue oral vancomycin every 6 hours -no positive blood cultures at this time COPD Possible pneumonitis on CT, possible pneumonia Atrial fibrillation (new onset) -patient reports he uses supplementary oxygen only with sleep at baseline -Negative procalcitonin on admission -on home inhalers for COPD -Patient denies any respiratory symptoms -had been on metoprolol 50 mg daily -09/08/19: No acute respiratory distress but he required oxygen supplementation even during the day time. 2 step test shows that patient needs 2 liters/minute oxygen at all times. Chest X ray 1 view shows some increase of right lung infiltrates and it is possible that patient may have pneumonia. started on oral Augmentin and Doxycycline. Vital signs have occasional recorded heart rate above 110 bpm. EKG was performed had shows possible atrial fibrillation. Discussed with patient's family member sister ([phone]) of having patient monitored on telemetry to see if there is new onset atrial fibrillation -09/09/19: continues to have atrial fibrillation on telemetry, AM metoprolol held by nurse because of episode of bradycardia to the 50s. Heart rates currently is in the 90s. nephrology re-scheduled metoprolol as 25 mg for tomorrow AM. awaiting cardiology evaluation in regards to atrial fibrillation. will continue oral Augmentin and Doxycycline for now Metastatic adenocarcinoma of lung -S/P lung resection, had outpatient radiation and Chemo therapy Prostate cancer -Follows with Dr. Fuentes as outpatient Acute Kidney Injury on Chronic Kidney Disease stage III Metabolic Acidosis -Chronic bladder outlet obstruction -Mild metabolic acidosis on admission -admission creatinine 2.61 -ADRIANNE likely prerenal azotemia secondary to GI losses -Renal USD:There is markedly asymmetric cortical atrophy of the left kidney as compared to the right. This is similar to the 2012 [address] scan. No hydronephrosis is seen. Prostatomegaly with evidence of chronic bladder outlet obstruction. Baseline creatinine 1.8-2.0 -creatinine improved after intermittent IV fluids to 2.33 as of 09/08/19 labs. creatinine is 2.79 on 09/09/19 from diarrhea. Give IV fluids no Hypertensive blood pressures on this admission Metabolic encephalopathy -MRI brain:No acute intracranial abnormality. -Mental status appears to be at baseline currently DVT Px: Heparin SQ Status Full code PT/OT Subjective Patient seen and examined at bedside. On telemetry continues to have atrial fibrillation. AM metoprolol held by nurse because of a period of time when heart rate in the 50s. Patient breathing on nasal cannula. denies acute shortness of breath. no abdomen pain. nurse reports multiple diarrhea episodes yesterday night. Patient denies diarrhea this AM so far. Review of Systems Review of Systems: All systems reviewed & are unremarkable except as noted in HPI & below Physical Exam Constitutional: comfortable Eyes: PERRL, conjunctivae normal, anicteric sclerae EOM intact bilaterally ENMT: external ear and nose normal, oropharynx normal Neck: normal visual inspection Respiratory: normal respiratory effort, lungs clear to auscultation Cardiovascular: RRR, no murmur, no edema Rate/Rhythm: regular rate Gastrointestinal (Abdomen): normal bowel sounds, soft, nontender, no hepatosplenomegaly Musculoskeletal: Head/Neck/Chest: normocephalic and head atraumatic Neurologic: PERRL, EOMI, accommodation nl, no face palsy, no dysarthria Psychiatric: A+Ox3, euthymic affect Results & Data Vital Signs (Past 12 Hours) Vital Signs Temp Pulse Resp BP BP Pulse Ox 09/09/19 09:18 52 L 100/63 09/09/19 08:20 36.5 C 96 H 16 98/60 L 96 09/09/19 03:24 36.4 C L 112 H 22 102/63 97 09/08/19 23:41 36.4 C L 108 H 17 115/74 96 (1) Diarrhea Diarrhea type: unspecified type Qualified Code(s): R19.7 - Diarrhea, unspecified
[2019-09-09] MEDS ORDERED: SODIUM CHLORIDE 0.9% 1000ML 1,000 ML IV SCH ×2 (10:15→20:30)
--- NOTE | 2019-09-09 12:51 | Cardiology Consultation ---
Date of Consultation September 09, 2019 Assessment & Plan (1) Metastatic lung cancer (metastasis from lung to other site): (2) COPD (chronic obstructive pulmonary disease): (3) Ucqeb-qr-dkkqdqz kidney injury: (4) Diarrhea: (5) Dehydration: (6) Atrial fibrillation: At present the patient is hemodynamically stable and asymptomatic in regard to his atrial arrhythmia. I would not provide any additional treatment. In regard to anticoagulation I would continue with DVT prophylaxis only. I think the patient is at high risk for bleeding due to his colitis and would hold off on full anticoagulation. History of Present Illness Attending Physician: Tamera Walsh MD History of Present Illness This is an 79-year-old male patient with no significant cardiac history. He does have a history of metastatic adenocarcinoma of the lung as well as prostate cancer. He has been receiving chemotherapy for his lung cancer and developed a colitis with severe diarrhea and dehydration for which she was admitted. He also has acute on chronic renal failure most likely on the basis of dehydration. Following admission he was noted to be in atrial fibrillation with a controlled heart rate. His atrial fibrillation is completely asymptomatic. He denies shortness of breath or chest pain. He has had no dizziness or lightheadedness. He has no prior history of cardiac arrhythmias. He denies coronary artery disease or congestive heart failure. The patient had an echocardiogram completed in May and it is on the chart. I did not believe that he needs to have a repeat study completed at this time. We will follow along with you during his hospital stay. Allergies Allergy/AdvReac Type Severity Reaction Status Date / Time No Known Allergies Allergy Verified 09/05/19 09:13 Home Medications Home Medications Medication Instructions Recorded Confirmed Type fluticasone propionate 50 1 sprays INTRANASAL DAILY PRN gm 05/20/19 09/05/19 History mcg/actuation nasal spray,suspension albuterol sulfate 90 mcg/actuation 1 puffs INH Q4H PRN 05/24/19 09/05/19 History breath activated powder inhaler allopurinol 300 mg tablet 300 mg PO QAM 05/24/19 09/05/19 History budesonide-formoterol HFA 160 2 puffs INH BID 05/24/19 09/05/19 History mcg-4.5 mcg/actuation aerosol inhaler calcitriol 0.25 mcg capsule 0.25 mcg PO QAM 05/24/19 09/05/19 History furosemide 20 mg tablet 20 mg PO QAM 05/24/19 09/05/19 History tiotropium bromide 1.25 2 puffs INH QAM 05/24/19 09/05/19 History mcg/actuation mist for inhalation cholecalciferol (vitamin D3) 1,000 unit PO QAM 05/25/19 09/05/19 History [Vitamin D3] coQ10 (ubiquinol) 100 mg PO QAM 05/25/19 09/05/19 History vitamin B complex 1 tab PO QAM 05/25/19 09/05/19 History metoprolol succinate 25 mg capsule 50 mg PO QAM ea 07/20/19 09/05/19 History sprinkle, ext. release 24 hr ondansetron HCl 8 mg tablet 8 mg PO TID PRN 07/20/19 09/05/19 History prochlorperazine maleate 10 mg 10 mg PO Q6H PRN tab 07/20/19 09/05/19 History tablet simvastatin 20 mg tablet 10 mg PO [id number] tab 07/20/19 09/05/19 History albuterol sulfate 2.5 mg INHALATION Q4H PRN 09/02/19 09/05/19 History aspirin 81 mg PO HS 09/02/19 09/05/19 History carboplatin 0 mg IV WE 09/02/19 09/05/19 History dexamethasone 12 mg PO UD 09/02/19 09/05/19 History diphenhydramine HCl [Benadryl] 25 mg PO UD 09/02/19 09/05/19 History famotidine 10 mg PO UD 09/02/19 09/05/19 History loperamide [Imodium A-D] 2 mg PO Q3H PRN 09/02/19 09/05/19 History paclitaxel 0 mg IV WE 09/02/19 09/05/19 History vancomycin 125 mg PO Q6 12 Days #48 cap 09/07/19 Rx Patient History Medical History Bronchitis (Deleted) Cancer LUNG CANCER COPD (chronic obstructive pulmonary disease) Emphysema of lung Gout Hyperlipidemia Hypertension Kidney disease (Deleted) "FOLLOWS WITH NEPHROLOGY" Lesion of left lung Osteoarthritis Prostate cancer ? NEW DX PER PETS SCAN Right pulmonary lesion Sleep apnea CPAP Surgical History H/O aortic aneurysm repair 2018 History of colonoscopy History of tooth extraction S/P bronchoscopy with biopsy (11/04/17) PER (PROCEDURE ATTEMPTED) S/P bronchoscopy with biopsy (06/10/19) Endobronchial Ultrasound with Biopsies Dr. Frazier 06/10/19 S/P partial lobectomy of lung (12/17/11) Dr. Grajeda Status post partial lobectomy of lung Family History Mother Hypertension Stroke Family history of diabetes mellitus Father Suicide Social History Preferred Language: Cuban Communication Ability: Effective Visual Impairment: No Limitations Welfare Investigator Required: No Beliefs That Will Affect Care: None marital status: Current Living Situation: Spouse current occupational status: retired Other Information That Helps Us Care for You: No Feels Safe at Home: Yes Safety Concerns: Feels Safe At This Time Smoking Status: Former smoker Tobacco Type: cigarettes ; Cigarettes Per Day: 10 ; Second Hand Exposure: No ; Hx Alcohol Use: Yes Alcohol type: wine Alcohol type Comment: rarely Hx Substance Use: No Review of Systems Review of Systems: All systems reviewed & are unremarkable except as noted in HPI & below Nothing additional to add. Physical Exam Physical Exam: General: no acute distress and stated age Head: normocephalic, no masses, lesions, tenderness or abnormalities Eyes: conjunctiva are pink and non-injected, sclera clear Neck: supple, no adenopathy, no bruits, normal jugular venous pulse, no hepatojugular reflux Chest: normal shape and normal respiratory effort Lungs: clear to auscultation and percussion Cardiac Exam: - regular rate & rhythm, no murmurs gallops or rubs - normal S1, normal S2 Pulses: 2(+) throughout Abdomen: abdomen soft, non-tender, no abnormal masses and no hepatosplenomegaly Musculoskeletal: no gait disturbance, no joint inflammation, no deforming arthritis Extremities: no edema and no cyanosis Neuro: grossly normal exam Results & Data Vital Signs (Past 12 Hours) Vital Signs Temp Pulse Resp BP BP Pulse Ox 09/09/19 09:18 52 L 100/63 09/09/19 08:20 36.5 C 96 H 16 98/60 L 96 11/29/19 03:24 36.4 C L 112 H 22 102/63 97 Laboratory Results Laboratory Results - last 24 hr 09/08/19 09/09/19 09/09/19 16:33 07:23 07:23 WBC 5.98 RBC 3.34 L Hgb 10.1 L Hct 31.0 L MCV 92.8 MCH 30.2 MCHC 32.6 RDW Std Deviation 52.3 H RDW Coeff of Brittany 16.1 H Plt Count 109 L MPV 11.6 H Immature Gran % (Auto) 0.5 Neut % (Auto) 80.3 Lymph % (Auto) 9.4 Esmeralda % (Auto) 9.5 Eos % (Auto) 0.3 Baso % (Auto) 0.0 Immature Gran # (Auto) 0.03 H Neut # (Auto) 4.80 Lymph # (Auto) 0.56 L Esmeralda # (Auto) 0.57 Eos # (Auto) 0.02 Baso # (Auto) 0.00 Dohle Bodies 1+ Ovalocytes 1+ Echinocytes 1+ Sodium 139 Potassium 3.6 Chloride 109 H Carbon Dioxide 23 Anion Gap 7.0 BUN 43 H Creatinine 2.79 H D Est Cr Clr Drug Dosing 21.1 Est GFR ( Amer) 23.6 Est GFR (Non-Af Amer) 20.3 BUN/Creatinine Ratio 15.6 Glucose 111 H POC Glucose 122 H Calcium 8.2 L Phosphorus 4.0 Magnesium 2.0 Total Bilirubin 0.4 AST 10 L ALT 12 Alkaline Phosphatase 71 Total Protein 4.4 L Albumin 1.9 L Globulin 2.5 Albumin/Globulin Ratio 0.7 L 09/09/19 09/09/19 07:35 11:28 WBC RBC Hgb Hct MCV MCH MCHC RDW Std Deviation RDW Coeff of Brittany Plt Count MPV Immature Gran % (Auto) Neut % (Auto) Lymph % (Auto) Esmeralda % (Auto) Eos % (Auto) Baso % (Auto) Immature Gran # (Auto) Neut # (Auto) Lymph # (Auto) Esmeralda # (Auto) Eos # (Auto) Baso # (Auto) Dohle Bodies Ovalocytes Echinocytes Sodium Potassium Chloride Carbon Dioxide Anion Gap BUN Creatinine Est Cr Clr Drug Dosing Est GFR ( Amer) Est GFR (Non-Af Amer) BUN/Creatinine Ratio Glucose POC Glucose 117 H 132 H Calcium Phosphorus Magnesium Total Bilirubin AST ALT Alkaline Phosphatase Total Protein Albumin Globulin Albumin/Globulin Ratio Medications Administered Current Inpatient Medications Acetaminophen (Tylenol) 325 mg PO Q6H PRN PRN Reason: pain/fever Stop: 10/05/19 20:07 Last Admin: 09/07/19 08:07 Dose: 325 mg Documented by: Albuterol (Proair Hfa) 1 puffs INH Q4H PRN PRN Reason: SHORT OF BREATH Stop: 10/05/19 20:07 Albuterol (Ventolin 0.083% 2.5mg/3ml) 2.5 mg INH Q4H PRN PRN Reason: Shortness Of Breath Or Wheezing Stop: 10/05/19 20:07 Allopurinol (Zyloprim) 300 mg PO QAM [facility] Stop: 10/06/19 08:59 Last Admin: 09/09/19 09:11 Dose: 300 mg Documented by: Amoxicillin/Clavulanate Potassium (Augmentin 500mg) 1 tab PO BIDM [facility]; Protocol Stop: 09/15/19 16:59 Last Admin: 09/09/19 09:12 Dose: 1 tab Documented by: Aspirin (Ecotrin Ectab) 81 mg PO HS [facility] Stop: 10/05/19 20:59 Last Admin: 09/08/19 21:09 Dose: 81 mg Documented by: Budesonide/Formoterol Fumarate (Symbicort 160mcg/4.5mcg) 2 puffs INH BID [facility] Stop: 10/05/19 20:59 Last Admin: 09/09/19 09:12 Dose: 2 puffs Documented by: Calcitriol (Rocaltrol) 0.25 mcg PO QAM [facility] Stop: 10/06/19 08:59 Last Admin: 09/09/19 09:12 Dose: 0.25 mcg Documented by: Doxycycline Hyclate (Vibramycin) 100 mg PO BID [facility] Stop: 09/15/19 10:59 Last Admin: 09/09/19 09:11 Dose: 100 mg Documented by: Fluticasone Propionate (Flonase) 1 sprays NA DAILY PRN PRN Reason: Congestion Stop: 10/05/19 20:07 Heparin Sodium (Porcine) (Heparin Sodium (Porcine)) 5,000 units SQ Q8 [facility] Stop: 10/05/19 21:59 Last Admin: 09/09/19 06:25 Dose: 5,000 units Documented by: Sodium Chloride (Nss 1000ml) 1,000 mls @ 60 mls/hr IV .[id number] [facility] Stop: 10/09/19 10:14 Last Admin: 09/09/19 10:46 Dose: 60 mls/hr Documented by: Lactobacillus Acidophilus (Floranex) 4 tab PO QIDM [facility] Stop: 10/06/19 16:59 Last Admin: 09/09/19 12:47 Dose: 4 tab Documented by: Metoprolol Succinate (Toprol Xl) 25 mg PO QAM [facility] Stop: 10/10/19 08:59 Ondansetron HCl (Zofran) 4 mg IV Q6H PRN PRN Reason: Nausea Stop: 10/05/19 20:07 Raspberry (Raspberry) 5 ml PO Q6 [facility] Stop: 09/20/19 17:59 Last Admin: 09/09/19 12:46 Dose: 5 ml Documented by: Simvastatin (Zocor) 10 mg PO [id number] [facility] Stop: 10/05/19 20:07 Last Admin: 09/08/19 21:12 Dose: 10 mg Documented by: Tiotropium [place] (Spiriva) 1 puffs INH QAM [facility] Stop: 10/06/19 08:59 Last Admin: 09/09/19 09:12 Dose: 1 puffs Documented by: Vancomycin HCl (Vancomycin Hcl) 125 mg PO Q6 [facility] Stop: 09/16/19 17:59 Last Admin: 09/09/19 12:46 Dose: 125 mg Documented by: Vitamin B Complex (Vitamin B Complex) 1 tab PO QAM [facility] Stop: 10/06/19 08:59 Last Admin: 09/09/19 09:13 Dose: 1 tab Documented by: Vitamin D (Vitamin D3) 1,000 units PO QAM [facility] Stop: 10/06/19 08:59 Last Admin: 09/09/19 09:11 Dose: 1,000 units Documented by: (1) Metastatic lung cancer (metastasis from lung to other site) Laterality: unspecified laterality Qualified Code(s): C34.90 - Malignant neoplasm of unspecified part of unspecified bronchus or lung (2) Eitaw-vd-dovsepq kidney injury Acute renal failure type: unspecified Chronic kidney disease stage: unspecified stage Qualified Code(s): N17.9 - Acute kidney failure, unspecified; N18.9 - Chronic kidney disease, unspecified (3) Diarrhea Diarrhea type: unspecified type Qualified Code(s): R19.7 - Diarrhea, unspecified
[2019-09-09] MEDS ORDERED: VANCOMYCIN HCL 125 MG/2.5ML SOLN PO ONE (19:00)
[2019-09-09] MEDS ORDERED: RASPBERRY SYRUP 5 ML UDP PO ONE (19:00)
[2019-09-09] MEDS ORDERED: SODIUM CHLORIDE 0.9% 1000ML 250 ML IV ONE (19:02)
--- NOTE | 2019-09-09 19:20 | Hospitalist Progress Note ---
Date of Service September 09, 2019 Subjective ATTENDING ADDENDUM : pt seen at bedside complains of feeling very weak and tired still having multiple episodes of loose bowel movement no complain of abdominal pain , no nausea or vomiting no cough , sob no fever or chills reviewed pt's med and labs : noted to be in rapid afib RVR with HR in 100's noted to episodes of hypotension overnight pt appears to be clinically dry on going GI loss /diarrhea ordered for NSS 250 ml bolus , followed by 125ml/hr for 1 liter recent ECHO noted : grade 1 diastolic dysfunction /EF 55 % will monitor vol status AFIB RVR : in setting of acute illness appreciate cardiology eval on beta ally correction of dehydration to prevent reflex tachyarryhtmia THROMBOCYTOPENIA : hold Aspirin , SUB q heparin follow CBC C DIFF COLITIS : will increase PO Vancomycin to 250 mg QID cont pro biotics will D/c Augmentin /Doxy -no conclusive evidence of pneumonia no cough or fever limit abx in setting of C diff colitis called pt's Anna -left message Tamera Walsh MD Results & Data Vital Signs (Past 12 Hours) Vital Signs Temp Pulse Resp BP BP Pulse Ox 09/09/19 16:00 36.3 C L 101 H 18 108/63 97 09/09/19 09:18 52 L 100/63 09/09/19 08:20 36.5 C 96 H 16 98/60 L 96
[2019-09-09] MEDS ORDERED: Nursing to Pharmacy Communication ONE (20:44)
[2019-09-09] MEDS: VANCOMYCIN HCL 250 MG/5 ML SOLN PO SCH (23:29)
[2019-09-10] MEDS: RASPBERRY SYRUP 5 ML UDP PO SCH ×4 (05:20→23:35)
[2019-09-10] MEDS: VANCOMYCIN HCL 250 MG/5 ML SOLN PO SCH ×4 (05:20→23:35)
[2019-09-10 06:32] LABS: Hematocrit (blood only) 32.6 % (42-52); Hemoglobin 10.5 g/dL (14.0-18.0); Mean Corpuscular Hemoglobin 30.3 pg (25-34); Mean Corpuscular Hgb Conc 32.2 g/dL (32-36); Mean Corpuscular Volume 93.9 fL (80-100); Mean Platelet Volume 12.5 fL (7.4-10.4); Platelet Count 131 K/uL (130-400); RDW Coefficient of Variation 16.3 % (11.5-14.5); RDW Standard Deviation 52.6 fL (36.4-46.3); Red Blood Count 3.47 M/uL (4.7-6.1); White Blood Count 5.73 K/uL (4.8-10.8)
[2019-09-10 07:05] LABS: BUN Creatinine Ratio 15.8 (10-20); Calcium 8.5 mg/dl (8.5-10.1); Creatinine Clr Calc Pharmacy 22.8 ml/min; Est GFR (African American) 25.7; Est GFR (Non-African American) 22.1; Potassium 3.4 mmol/L (3.5-5.1)
[2019-09-10] MEDS: LACTOBACILLUS ACIDOPHILUS (FLORANEX) TAB PO SCH ×4 (07:54→20:18)
[2019-09-10] MEDS: CHOLECALCIFEROL 1,000 UNITS TAB PO SCH (07:54)
[2019-09-10] MEDS: TIOTROPIUM BROMIDE 5 PUFF/90 MCG INH INH SCH (07:54)
[2019-09-10] MEDS: VITAMIN B COMPLEX TAB PO SCH (07:54)
[2019-09-10] MEDS: CALCITRIOL 0.25 MCG CAPSULE PO SCH (07:54)
[2019-09-10] MEDS: BUDESONIDE/FORMOTEROL FUMARATE 160/4.5 60 PUFFS/INHALER INH SCH ×2 (07:54→20:19)
[2019-09-10] MEDS ORDERED: METOPROLOL SUCC 25MG EXT REL TAB PO SCH (09:00)
[2019-09-10] MEDS ORDERED: POTASSIUM CHLORIDE 20 MEQ TABCR PO STA (10:15)
[2019-09-10] MEDS ORDERED: POTASSIUM CHLORIDE 20 MEQ in SODIUM CHLORIDE 0.9% 1000ML 1,000 ML IV SCH (10:30)
--- NOTE | 2019-09-10 10:33 | Hospitalist Progress Note ---
Date of Service September 10, 2019 Assessment & Plan (1) C. difficile colitis: Admitted with weakness, ongoing diarrhea, dehydration stool testing positive for C. difficile Patient started with p.o. vancomycin dose increased to 250 mg 4 times daily-will need 10 days of treatment Added probiotics Continue contact isolation, (2) Hypokalemia: Due to ongoing GI loss: Diarrhea Replaced, Repeat labs in a.m. (3) Atrial fibrillation: Newly diagnosed during this admission Appreciate input from cardiology Recommends rate controlled with beta-ally remains in A. fib RVR, heart rate variable between 100-120, patient is asymptomatic Beta-ally dose adjusted: Changed to Lopressor 25 mg twice daily( was on Toprol Xl 25 daily ) -will defer to further dose adjustment to Cardiology IV Lopressor as needed for heart rate more than 100 Cardiology consulted Given high risk of bleeding, and transient presentation of atrial fibrillation, started while in hospital with acute illness Anticoagulation is not recommended (4) Metastatic lung cancer (metastasis from lung to other site): Metastatic lung cancer with mets to pleural space Status post lung resection radiation chemo treatment Patient is overall poor health with poor immune status Very high risk for developing acute abdomen from C. difficile colitis Continue to monitor patient closely CT chest and Chest xray reviews ;rt lower lobe infiltrate noted no evidence of pneumonia -no fever or chills , no cough will limit Abx given C diff colitis speech eval requested to assess dysphagia /aspiration risk (5) Protein-calorie malnutrition, moderate: Due to metastatic malignancy ,poor p.o. 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, scattered wheeze noted ordered for Neb tx (7) HTN (hypertension): had hypotensive episodes on admission possible due to GI loss BP improved after iV hydration on beta ally for Afib RVR with holding parameters ( hold for SBP < 100 ) (8) HLD (hyperlipidemia): (9) Rannv-nj-sihhkiv kidney injury: Acute kindey failure with underlying CKD stage 3 baseline Cr 2 due to dehydration , GI loss Cr mild improvement with IV fluids cont to monitor BMP avoid NSAID's , IV contrasts FULL CODE DVT PROPHYLAXIS : moderate to high risk for DVT ordered sub q heparin DISPOSITION : lives at home with PT/OT eval prior to discharge Subjective Complains of being very tired, weak, did not get much sleep last night Had loose bowel movements few times (23) last night, No bowel movement this morning so far No complaint of nausea vomiting or abdominal pain No fever or chills No cough or shortness of breath Physical Exam Constitutional: + ill appearing and + thin; no acute distress Eyes: PERRL, conjunctivae normal, anicteric sclerae ENMT: Mouth: + oral mucosal abnormality (Dry oral mucosa) Neck: trachea midline, no thyromegaly Respiratory: + abnormal respiratory effort and no respiratory distress Auscultation: + diminished lung sounds and + wheezes Cardiovascular: Rate/Rhythm: + abnormal rhythm (Irregular rapid heart rate in 100s) Gastrointestinal (Abdomen): Inspection/Auscultation: normal bowel sounds Percussion/Palpation: abdomen soft; abdomen nontender Skin: no rashes, warm and dry Neurologic: PERRL, EOMI, accommodation nl, no face palsy, no dysarthria Psychiatric: Orientation: alert Results & Data Vital Signs (Past 12 Hours) Vital Signs Temp Pulse Pulse Resp BP Pulse Ox 09/10/19 08:00 106 H 09/10/19 07:18 36.5 C 78 18 114/64 90 09/10/19 04:56 36.6 C 108 H 20 132/66 94 09/10/19 01:05 115 H 09/10/19 00:33 36.5 C 112 H 18 105/70 93 (1) Metastatic lung cancer (metastasis from lung to other site) Laterality: unspecified laterality Qualified Code(s): C34.90 - Malignant neoplasm of unspecified part of unspecified bronchus or lung (2) Letpe-fx-gbiqhll kidney injury Acute renal failure type: unspecified Chronic kidney disease stage: unspecified stage Qualified Code(s): N17.9 - Acute kidney failure, unspecified; N18.9 - Chronic kidney disease, unspecified
[2019-09-10] MEDS ORDERED: LEVALBUTEROL 1.25MG/0.5ML NEB NEB STA (10:48)
[2019-09-10] MEDS ORDERED: LEVALBUTEROL 1.25MG/0.5ML NEB NEB PRN (10:48)
--- NOTE | 2019-09-10 11:38 | Cardiology Progress Note ---
Date of Service September 10, 2019 Assessment & Plan (1) Atrial fibrillation: (2) Hypokalemia: (3) Metastatic lung cancer (metastasis from lung to other site): (4) C. difficile colitis: Agree with treatment for her C. difficile colitis. Case discussed with Dr. Walsh, metoprolol succinate 25 mg daily has been transition to 25 mg twice daily. Continue subcutaneous heparin for DVT prophylaxis, holding off on anticoagulation for stroke prophylaxis given colitis, risk of bleeding. LVEF was normal at the time of outpatient echocardiogram in May,. CT of the chest performed this admission reveals a trace circumferential pericardial effusion which I do not think would be causing any hemodynamic compromise. Renal insufficiency may be due to ADRIANNE from prerenal azotemia/ATN the setting of colitis, continue to follow Subjective Patient seen in cardiology follow-up having initially been seen in consultation by Dr. Baires of our practice. He is sitting upright, and feels well. He states that he had a bowel movement this morning without any concern of diarrhea or blood per rectum. He has no subjective sensation of a fast or irregular heart rate. Telemetry reveals atrial fibrillation with rate in the range of 90-100's at rest, with occasional PVCs. Review of Systems Review of Systems: All systems reviewed & are unremarkable except as noted in HPI & below Physical Exam Physical Exam: Temp Pulse Resp BP Pulse Ox 36.5 C 106 H 18 114/64 90 09/10/19 07:18 09/10/19 08:00 09/10/19 07:18 09/10/19 07:18 09/10/19 07:18 Constitutional: WD/WN, vitals as above Respiratory: normal respiratory effort, lungs clear to auscultation Cardiovascular: Rate/Rhythm: + tachycardic and + irregularly irregular Heart Sounds: no murmur Vessels: no JVD Extremities: no edema Gastrointestinal (Abdomen): normal bowel sounds, soft, nontender, no hepatosplenomegaly Neurologic: PERRL, EOMI, accommodation nl, no face palsy, no dysarthria Results & Data Vital Signs (Past 12 Hours) Vital Signs Temp Pulse Pulse Resp BP Pulse Ox 09/10/19 08:00 106 H 09/10/19 07:18 36.5 C 78 18 114/64 90 09/10/19 04:56 36.6 C 108 H 20 132/66 94 09/10/19 01:05 115 H 09/10/19 00:33 36.5 C 112 H 18 105/70 93 Laboratory Results CBC 09/10/19 Range/Units 05:58 WBC 5.73 (4.8-10.8) K/uL RBC 3.47 L (4.7-6.1) M/uL Hgb 10.5 L (14.0-18.0) g/dL Hct 32.6 L (42-52) % Plt Count 131 (130-400) K/uL Comprehensive Metabolic Panel 09/10/19 Range/Units 05:58 Sodium 140 (136-145) mmol/L Potassium 3.4 L (3.5-5.1) mmol/L Chloride 112 H (98-107) mmol/L Carbon Dioxide 21 (21-32) mmol/L BUN 41 H (7-18) mg/dl Creatinine 2.60 H (0.6-1.4) mg/dl Glucose 116 H (70-99) mg/dl Calcium 8.5 (8.5-10.1) mg/dl Intake and Output 09/09/19 09/10/19 09/10/19 22:59 06:59 14:59 Intake Total 1024 / 2149 1000 / 2149 Output Total 2 / 452 100 / 452 Balance 1022 / 1697 900 / 1697 Intake: IV 774 / 1774 1000 / 1774 Nss 1000ML 1,000 ml @ 125 mls/ 774 / 1774 1000 / 1774 hr IV .Q8H [facility] Rx#:[id number] Oral 250 / 375 Output: Urine 100 / 450 # Bowel Movements 2 / 2 Other: # Unmeasured Voids 1 2 Weight 72.3 kg Medications Administered Current Inpatient Medications Acetaminophen (Tylenol) 325 mg PO Q6H PRN PRN Reason: pain/fever Stop: 10/05/19 20:07 Last Admin: 09/07/19 08:07 Dose: 325 mg Documented by: Albuterol (Proair Hfa) 1 puffs INH Q4H PRN PRN Reason: SHORT OF BREATH Stop: 10/05/19 20:07 Albuterol (Ventolin 0.083% 2.5mg/3ml) 2.5 mg INH Q4H PRN PRN Reason: Shortness Of Breath Or Wheezing Stop: 10/05/19 20:07 Allopurinol (Zyloprim) 300 mg PO QAM [facility] Stop: 10/06/19 08:59 Last Admin: 09/09/19 09:11 Dose: 300 mg Documented by: Aspirin (Ecotrin Ectab) 81 mg PO HS [facility] Stop: 10/05/19 20:59 Last Admin: 09/08/19 21:09 Dose: 81 mg Documented by: Budesonide/Formoterol Fumarate (Symbicort 160mcg/4.5mcg) 2 puffs INH BID [facility] Stop: 10/05/19 20:59 Last Admin: 09/10/19 07:54 Dose: 2 puffs Documented by: Calcitriol (Rocaltrol) 0.25 mcg PO QAM [facility] Stop: 10/06/19 08:59 Last Admin: 09/10/19 07:54 Dose: 0.25 mcg Documented by: Fluticasone Propionate (Flonase) 1 sprays NA DAILY PRN PRN Reason: Congestion Stop: 10/05/19 20:07 Heparin Sodium (Porcine) (Heparin Sodium (Porcine)) 5,000 units SQ Q12 [facility] Stop: 10/10/19 08:59 Potassium Chloride 20 meq/ (Sodium Chloride) 1,010 mls @ 100 mls/hr IV .Q10H6M [facility] Stop: 09/10/19 20:35 Last Admin: 09/10/19 11:05 Dose: 100 mls/hr Documented by: Lactobacillus Acidophilus (Floranex) 4 tab PO QIDM [facility] Stop: 10/06/19 16:59 Last Admin: 09/10/19 07:54 Dose: 4 tab Documented by: Levalbuterol HCl (Xopenex 1.25mg/0.5ml Neb) 1.25 mg NEB Q6R PRN PRN Reason: wheeze Stop: 10/10/19 10:47 Metoprolol Tartrate (Lopressor) 5 mg IV Q6 PRN PRN Reason: HR>100 Stop: 10/10/19 11:59 Metoprolol Tartrate (Lopressor) 25 mg PO BID [facility] Stop: 10/10/19 20:59 Ondansetron HCl (Zofran) 4 mg IV Q6H PRN PRN Reason: Nausea Stop: 10/05/19 20:07 Raspberry (Raspberry) 5 ml PO Q6 [facility] Stop: 09/20/19 17:59 Last Admin: 09/10/19 05:20 Dose: 5 ml Documented by: Simvastatin (Zocor) 10 mg PO [id number] [facility] Stop: 10/05/19 20:07 Last Admin: 09/08/19 21:12 Dose: 10 mg Documented by: Tiotropium [place] (Spiriva) 1 puffs INH QAM [facility] Stop: 10/06/19 08:59 Last Admin: 09/10/19 07:54 Dose: 1 puffs Documented by: Vancomycin HCl (Vancomycin Hcl) 250 mg PO Q6 [facility] Stop: 09/20/19 00:00 Last Admin: 09/10/19 05:20 Dose: 250 mg Documented by: Vitamin B Complex (Vitamin B Complex) 1 tab PO QAM [facility] Stop: 10/06/19 08:59 Last Admin: 09/10/19 07:54 Dose: 1 tab Documented by: Vitamin D (Vitamin D3) 1,000 units PO QAM [facility] Stop: 10/06/19 08:59 Last Admin: 09/10/19 07:54 Dose: 1,000 units Documented by: (1) Metastatic lung cancer (metastasis from lung to other site) Laterality: unspecified laterality Qualified Code(s): C34.90 - Malignant neoplasm of unspecified part of unspecified bronchus or lung
[2019-09-10] MEDS: METOPROLOL TARTRATE 1 MG/ML VIAL IV PRN (12:48)
[2019-09-10] MEDS: METOPROLOL TARTRATE 25 MG TAB PO SCH (20:18)
[2019-09-11] MEDS: RASPBERRY SYRUP 5 ML UDP PO SCH ×4 (05:49→23:45)
[2019-09-11] MEDS: VANCOMYCIN HCL 250 MG/5 ML SOLN PO SCH ×4 (05:49→23:46)
[2019-09-11 07:44] LABS: BUN Creatinine Ratio 17.6 (10-20); Calcium 8.5 mg/dl (8.5-10.1); Creatinine Clr Calc Pharmacy 24.1 ml/min; Est GFR (African American) 27.4; Est GFR (Non-African American) 23.7; Potassium 3.8 mmol/L (3.5-5.1)
[2019-09-11] MEDS: METOPROLOL TARTRATE 25 MG TAB PO SCH ×2 (07:46→20:33)
[2019-09-11] MEDS: CALCITRIOL 0.25 MCG CAPSULE PO SCH (07:49)
[2019-09-11] MEDS: LACTOBACILLUS ACIDOPHILUS (FLORANEX) TAB PO SCH ×4 (07:49→20:33)
[2019-09-11] MEDS: VITAMIN B COMPLEX TAB PO SCH (07:49)
[2019-09-11] MEDS: TIOTROPIUM BROMIDE 5 PUFF/90 MCG INH INH SCH (07:49)
[2019-09-11] MEDS: BUDESONIDE/FORMOTEROL FUMARATE 160/4.5 60 PUFFS/INHALER INH SCH ×2 (07:49→20:34)
[2019-09-11] MEDS: CHOLECALCIFEROL 1,000 UNITS TAB PO SCH (07:49)
[2019-09-11] MEDS: LACTATED RINGER'S 1,000 ML IV SCH ×2 (12:50→23:51)
--- NOTE | 2019-09-11 13:46 | Cardiology Progress Note ---
Date of Service September 11, 2019 Assessment & Plan (1) Atrial fibrillation: Continue metoprolol. Change hold parameter for SBP < 90 mm Hg. Holding off on anticoagulation due to colitis. Poor DOAC candidate due to renal insufficiency. Will consider starting coumadin tomorrow. (2) Hypokalemia: 3.8 today. Creatinine has trended toward improvement from 2.6 yesterday to 2.46 today. (3) Metastatic lung cancer (metastasis from lung to other site): (4) C. difficile colitis: Subjective Chief complaint: Follow-up atrial fibrillation Subjective: A Quevedo catheter has been placed and the patient is feeling some discomfort relative to the catheter, but otherwise he is feeling well. He states that his bowel movements have been more formed without any additional diarrhea and no hematochezia. Telemetry reveals ongoing rate controlled atrial fibrillation in the range of 90 bpm. A 4 beat jhonny of nonsustained ventricular tachycardia was noted today at 09/11/2019 at 12:30 PM without recurrence. Review of Systems Review of Systems: All systems reviewed & are unremarkable except as noted in HPI & below Physical Exam Physical Exam: Temp Pulse Resp BP Pulse Ox 36.4 C L 91 H 18 93/58 L 95 09/11/19 11:56 09/11/19 11:56 09/11/19 11:56 09/11/19 11:56 09/11/19 11:56 Constitutional: WD/WN, vitals as above Respiratory: normal respiratory effort, lungs clear to auscultation Cardiovascular: Rate/Rhythm: + irregularly irregular Heart Sounds: no murmur Vessels: no JVD Gastrointestinal (Abdomen): normal bowel sounds, soft, nontender, no hepatosplenomegaly Skin: no rashes, warm and dry Neurologic: PERRL, EOMI, accommodation nl, no face palsy, no dysarthria Results & Data Vital Signs (Past 12 Hours) Vital Signs Temp Pulse Pulse Resp BP BP Pulse Ox 09/11/19 11:56 36.4 C L 91 H 18 93/58 L 95 09/11/19 09:00 87 09/11/19 07:16 36.4 C L 99 H 18 90/59 L 93 09/11/19 03:14 36.6 C 89 18 111/64 93 (1) Metastatic lung cancer (metastasis from lung to other site) Laterality: unspecified laterality Qualified Code(s): C34.90 - Malignant neoplasm of unspecified part of unspecified bronchus or lung
--- NOTE | 2019-09-11 13:57 | Hospitalist Progress Note ---
Date of Service September 11, 2019 Assessment & Plan (1) C. difficile colitis: Admitted with weakness, ongoing diarrhea, dehydration stool testing positive for C. difficile Patient started with p.o. vancomycin dose increased to 250 mg 4 times daily-will need 10 days of treatment Added probiotics Continue contact isolation, (2) Hypokalemia: Due to ongoing GI loss: Diarrhea Replaced, follow labs in AM (3) Atrial fibrillation: Newly diagnosed during this admission Appreciate input from cardiology Recommends rate controlled with beta-ally remains in A. fib RVR, heart rate variable between 100-120, patient is asymptomatic on Beta-ally :cont on Lopressor 25 mg twice daily Cardiology consulted Given high risk of bleeding, and transient presentation of atrial fibrillation, started while in hospital with acute illness Anticoagulation is not recommended (4) Metastatic lung cancer (metastasis from lung to other site): Metastatic lung cancer with mets to pleural space Status post lung resection radiation chemo treatment Patient is overall poor health with poor immune status Very high risk for developing acute abdomen from C. difficile colitis Continue to monitor patient closely CT chest and Chest xray reviews ;rt lower lobe infiltrate noted no evidence of pneumonia -no fever or chills , no cough will limit Abx given C diff colitis speech eval requested to assess dysphagia /aspiration risk -appreciate input high risk for dysphagia given hx of Radiation on chest wall for Lung Ca pt reports of episodes of swallowing difficulty bedside swallow eval does not show any evidence of aspiration VFSS ordered for AM (5) Protein-calorie malnutrition, moderate: Due to metastatic malignancy ,poor p.o. 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 ) scattered wheeze noted cont PRN Neb tx (7) HTN (hypertension): BP stable now on beta ally for Afib RVR with holding parameters ( hold for SBP < 100 ) (8) HLD (hyperlipidemia): (9) Horbn-jr-qjhnbld kidney injury: Acute kidney failure with underlying CKD stage 3 baseline Cr 2 due to dehydration , GI loss cont IV fluid Nephrology consulted cont to monitor BMP avoid NSAID's , IV contrasts FULL CODE DVT PROPHYLAXIS : moderate to high risk for DVT ordered sub q heparin DISPOSITION : lives at home with PT/OT eval prior to discharge updated at bedside Subjective says he feels better today thinks that his bowel movements getting better /more formed no nausea /vomiting or abdominal pain does not have any cough , no SOB , no fever or chills appetite remains very poor Physical Exam Constitutional: + ill appearing and + thin; no acute distress Eyes: PERRL, conjunctivae normal, anicteric sclerae ENMT: Mouth: + oral mucosal abnormality (Dry oral mucosa) Neck: trachea midline, no thyromegaly Respiratory: no respiratory distress Auscultation: + diminished lung sounds and + wheezes Cardiovascular: Rate/Rhythm: + abnormal rhythm (Afib ) Gastrointestinal (Abdomen): Inspection/Auscultation: normal bowel sounds Percussion/Palpation: abdomen soft; abdomen nontender Skin: no rashes, warm and dry Neurologic: PERRL, EOMI, accommodation nl, no face palsy, no dysarthria Psychiatric: A+Ox3, euthymic affect Results & Data Vital Signs (Past 12 Hours) Vital Signs Temp Pulse Pulse Resp BP BP Pulse Ox 09/11/19 11:56 36.4 C L 91 H 18 93/58 L 95 09/11/19 09:00 87 09/11/19 07:16 36.4 C L 99 H 18 90/59 L 93 09/11/19 03:14 36.6 C 89 18 111/64 93 (1) Metastatic lung cancer (metastasis from lung to other site) Laterality: unspecified laterality Qualified Code(s): C34.90 - Malignant neoplasm of unspecified part of unspecified bronchus or lung (2) Myfqh-qd-tcdvsvx kidney injury Acute renal failure type: unspecified Chronic kidney disease stage: unspecified stage Qualified Code(s): N17.9 - Acute kidney failure, unspecified; N18.9 - Chronic kidney disease, unspecified
[2019-09-11] MEDS: METOPROLOL TARTRATE 1 MG/ML VIAL IV PRN (22:09)
[2019-09-12] MEDS: RASPBERRY SYRUP 5 ML UDP PO SCH ×3 (05:44→17:34)
[2019-09-12] MEDS: VANCOMYCIN HCL 250 MG/5 ML SOLN PO SCH ×3 (05:44→17:34)
[2019-09-12 08:19] LABS: BUN Creatinine Ratio 18.5 (10-20); Calcium 8.6 mg/dl (8.5-10.1); Creatinine Clr Calc Pharmacy 28.1 ml/min; Est GFR (African American) 33.2; Est GFR (Non-African American) 28.7; Potassium 3.9 mmol/L (3.5-5.1)
--- NOTE | 2019-09-12 08:36 | XRay Report ---
XR chest 1V portable HISTORY: 79 years-old Male SOB acute shortness of breath COMPARISON: Chest radiograph 09/08/2019, chest CT 09/05/2019 TECHNIQUE: Portable AP view of the chest FINDINGS: Cardiac silhouette is enlarged, unchanged. No overt pulmonary edema. Calcified plaque of the thoracic aortic arch. No pneumothorax or large pleural effusion. Persistent blunting of the costophrenic angl es. Trace pleural effusions are suggested. Emphysema with chronic fibrotic changes. Chronic linear ri ght perihilar opacities. Cyst in patchy right basilar opacities have mildly improved. IMPRESSION: 1. Mildly improved aeration of the right lung base. 2. Cardiomegaly without overt pulmonary edema. 3. Emphysema with unchanged linear right perihilar opacities suggestive of fibrotic scarring. The above report was generated using voice recognition software. It may contain grammatical, syntax o r spelling errors. Electronically signed by: Sanchez Bae M.D. 09/12/2019 8:34 AM
[2019-09-12] MEDS: BUDESONIDE/FORMOTEROL FUMARATE 160/4.5 60 PUFFS/INHALER INH SCH ×2 (08:40→19:57)
[2019-09-12] MEDS: METOPROLOL TARTRATE 25 MG TAB PO SCH ×2 (08:41→20:30)
[2019-09-12] MEDS: LACTOBACILLUS ACIDOPHILUS (FLORANEX) TAB PO SCH ×4 (08:41→19:55)
[2019-09-12] MEDS: VITAMIN B COMPLEX TAB PO SCH (08:41)
[2019-09-12] MEDS: CHOLECALCIFEROL 1,000 UNITS TAB PO SCH (08:41)
[2019-09-12] MEDS: CALCITRIOL 0.25 MCG CAPSULE PO SCH (08:42)
[2019-09-12] MEDS: HEPARIN SOD 5,000 UNIT/0.5 ML VIAL SQ SCH ×2 (08:42→19:56)
[2019-09-12] MEDS ORDERED: LEVALBUTEROL 1.25MG/0.5ML NEB NEB PRN (08:42)
[2019-09-12] MEDS: allopurinoL 300 MG TAB PO SCH (08:42)
[2019-09-12] MEDS: TIOTROPIUM BROMIDE 5 PUFF/90 MCG INH INH SCH (08:43)
--- NOTE | 2019-09-12 08:43 | Hospitalist Progress Note ---
Date of Service September 12, 2019 Assessment & Plan (1) C. difficile colitis: Admitted with weakness, ongoing diarrhea, dehydration stool testing positive for C. difficile Patient started with p.o. vancomycin dose increased to 250 mg 4 times daily-will need 10 days of treatment Added probiotics Continue contact isolation, still having intermittent diarrhea cont to monitor electrolytes : K /MG COUGH /SOB -bilateral rales noted on auscultation -new since yesterdays exam no fever , white count remains normal pt been getting IVF for renal failure /diarrhea ordered to DC IV fluid check ProBNP ( Grade 1 diastolic dysfunction noted in recent ECHO ) Cxray ordered (2) Ugpoh-wt-vfegrws kidney injury: Acute kidney failure with underlying CKD stage 3 baseline Cr 2 due to dehydration , GI loss creatitine improved to approx baseline 2.1 today IVF d/daphne for concern for fluid overload Nephrology consulted cont to monitor BMP avoid NSAID's , IV contrasts (3) Hypokalemia: Due to ongoing GI loss: Diarrhea Replaced, follow labs in AM (4) Atrial fibrillation: Newly diagnosed during this admission Appreciate input from cardiology on Beta-ally :cont on Lopressor 25 mg twice daily Given high risk of bleeding, and transient presentation of atrial fibrillation, started while in hospital with acute illness Anticoagulation is not recommended (5) Metastatic lung cancer (metastasis from lung to other site): Metastatic lung cancer with mets to pleural space Status post lung resection radiation/ chemo treatment-Follows with Oncology Dr William at [place] Patient is overall poor health with poor immune status Very high risk for developing acute abdomen from C. difficile colitis Continue to monitor patient closely CT chest and Chest xray reviews ;rt lower lobe infiltrate noted no evidence of pneumonia -no fever or chills , no cough will limit Abx given C diff colitis speech eval requested to assess dysphagia /aspiration risk -appreciate input high risk for dysphagia given hx of Radiation on chest wall for Lung Ca pt reports of episodes of swallowing difficulty bedside swallow eval does not show any evidence of aspiration scheduled for VFSS ( video fluro swallow study ) this AM (6) Protein-calorie malnutrition, moderate: Due to metastatic malignancy ,poor p.o. 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 ) scattered wheeze noted cont PRN Neb tx (8) HTN (hypertension): BP stable now on beta ally for Afib RVR with holding parameters ( hold for SBP < 100 ) FULL CODE DVT PROPHYLAXIS : moderate to high risk for DVT ordered sub q heparin DISPOSITION : lives at home with significant deconditioning noted PT/OT eval requested Subjective feels tired and wiped out today reports of having one bowel movement this morning appetite remains poor no abdominal pain , no nausea or vomiting started Coughing this morning no fever or chills no complain of chest pain or palpitation remain in Afib on monitor Physical Exam Constitutional: + ill appearing and + thin; no acute distress Eyes: PERRL, conjunctivae normal, anicteric sclerae ENMT: Mouth: + oral mucosal abnormality (Dry oral mucosa) Neck: trachea midline, no thyromegaly Respiratory: no respiratory distress Auscultation: + diminished lung sounds, + crackles, + rales and + wheezes Cardiovascular: Rate/Rhythm: + abnormal rhythm (Afib ) Gastrointestinal (Abdomen): Inspection/Auscultation: normal bowel sounds Percussion/Palpation: abdomen soft; abdomen nontender Skin: no rashes, warm and dry Neurologic: PERRL, EOMI, accommodation nl, no face palsy, no dysarthria Psychiatric: A+Ox3, euthymic affect Orientation: alert Results & Data Vital Signs (Past 12 Hours) Vital Signs Temp Pulse Pulse Resp BP BP Pulse Ox 09/12/19 07:08 36.9 C 79 18 116/78 93 09/12/19 04:00 36.3 C L 93 H 16 119/80 94 09/12/19 00:00 106 H 09/11/19 22:50 37 C 103 H 18 108/71 94 09/11/19 22:09 139 H 145/74 H 09/11/19 20:55 106 H 18 96 (1) Metastatic lung cancer (metastasis from lung to other site) Laterality: unspecified laterality Qualified Code(s): C34.90 - Malignant neoplasm of unspecified part of unspecified bronchus or lung (2) Tvsgl-af-kraqhnk kidney injury Acute renal failure type: unspecified Chronic kidney disease stage: unspecified stage Qualified Code(s): N17.9 - Acute kidney failure, unspecified; N18.9 - Chronic kidney disease, unspecified
[2019-09-12] MEDS ORDERED: TRAZODONE HCL 50 MG TAB PO PRN (09:12)
[2019-09-12] MEDS: FLUTICASONE PROPIONATE NA SPR 16 GM BTL SCH ×2 (10:02→19:57)
--- NOTE | 2019-09-12 10:04 | Nephrology Progress Note ---
Date of Service September 12, 2019 Assessment & Plan (1) Likgs-az-mibrdjy kidney injury: Patient with acute kidney injury on CKD likely due to prerenal azotemia in setting of poor p.o. intake and GI losses. Patient also with evidence of chronic bladder outlet obstruction. Baseline creatinine of 1.8-2. Creatinine on admission was 2.6. Creatinine down to 2.1 today. Urinalysis showed concentrated urine with specific gravity of 1.021 but no RBCs or casts. Renal ultrasound showing evidence of chronic bladder outlet obstruction and atrophic left kidney of 7.2 cm. Right kidney 10.4 cm -Monitor renal function with daily BMP. -Patient might need a nutrition consult to improve his hypoalbuminemia (2) Metastatic cancer to lung: Patient planned for chemoradiation with paclitaxel and carboplatin. He understands that there is risk of worsening renal function with the chemotherapy regimen. He will need close monitoring of renal function and nephrology follow- up even after discharge. (3) Metabolic acidosis: Due to acute kidney injury. Improved. Recommend monitoring closely as patient has diarrhea. Subjective Patient is still having diarrhea although reports some improvement. No shortness of breath or pain. He feels weak and lethargic. He is frustrated about prolonged hospital stay. Creatinine slightly better today at 2.1 Review of Systems Review of Systems: All systems reviewed & are unremarkable except as noted in HPI & below Physical Exam Physical Exam: General exam: Appears comfortable, no acute distress HEENT: Pupils are equal and reactive to light Neck: No JVD, neck is supple trachea is midline Respiratory system: Clear breath sounds bilaterally. Gastrointestinal: Abdomen is soft, non distended, non tender, bowel sounds are present CVS: Regular rate and rhythm. No murmurs, rubs or gallops Musculoskeletal: No joint or muscle tenderness Extremities: Non tender, 1+ edema, peripheral pulses are present Neuro: Oriented, no tremors, no focal neurological deficits Skin: No rashes Results & Data Vital Signs (Past 12 Hours) Vital Signs Temp Pulse Pulse Resp BP BP Pulse Ox 09/12/19 07:08 36.9 C 79 18 116/78 93 09/12/19 04:00 36.3 C L 93 H 16 119/80 94 09/12/19 00:00 106 H 09/11/19 22:50 37 C 103 H 18 108/71 94 09/11/19 22:09 139 H 145/74 H Laboratory Results Laboratory Results - last 24 hr 09/11/19 09/11/19 09/11/19 11:39 16:38 20:13 Sodium Potassium Chloride Carbon Dioxide Anion Gap BUN Creatinine Est Cr Clr Drug Dosing Est GFR ( Amer) Est GFR (Non-Af Amer) BUN/Creatinine Ratio Glucose POC Glucose 108 H 93 97 Calcium NT-Pro-B Natriuret Pep 09/12/19 09/12/19 09/12/19 07:30 07:30 07:36 Sodium 140 Potassium 3.9 Chloride 113 H Carbon Dioxide 20 L Anion Gap 7.0 BUN 39 H Creatinine 2.10 H D Est Cr Clr Drug Dosing 28.1 Est GFR ( Amer) 33.2 Est GFR (Non-Af Amer) 28.7 BUN/Creatinine Ratio 18.5 Glucose 100 H POC Glucose 105 H Calcium 8.6 NT-Pro-B Natriuret Pep 11960 H (1) Nbnnm-lh-stbltdi kidney injury Acute renal failure type: unspecified Chronic kidney disease stage: unspecified stage Qualified Code(s): N17.9 - Acute kidney failure, unspecified; N18.9 - Chronic kidney disease, unspecified (2) Metastatic cancer to lung Laterality: unspecified laterality Qualified Code(s): C78.00 - Secondary malignant neoplasm of unspecified lung
[2019-09-12] MEDS: METOPROLOL TARTRATE 1 MG/ML VIAL IV PRN (11:09)
--- NOTE | 2019-09-12 15:12 | Fluoroscopy Report ---
VIDEO SWALLOW STUDY CLINICAL HISTORY: Aspiration. COMPARISON STUDY: No priors. Fluoroscopy time: 2.4 minutes. FINDINGS: Fluoroscopic guidance was provided to the Department of speech pathology in performing a vi adama swallow study. The patient consumed barium-impregnated cracker with paste, pudding, thick liquid, and thin barium while the swallowing mechanism was observed in real-time. No penetration or aspirati on was seen with any of the sampled textures. Esophageal dysmotility is observed. IMPRESSION: 1. No penetration or aspiration was seen with any of the sampled textures. 2. See dedicated speech pathology report for detailed findings and recommendations. Dictated: 09/12/2019 2:37 PM Transcribed: 09/12/2019 3:05 PM Sybil [id number] [email or web address] Electronically signed by: Carlos Kaur M.D. 09/12/2019 3:11 PM
[2019-09-12] MEDS ORDERED: METOPROLOL TARTRATE 1 MG/ML VIAL IV STA ×2 (15:21→19:20)
[2019-09-12] MEDS: ASPIRIN 81 MG ECTAB PO SCH (19:56)
[2019-09-12] MEDS: SIMVASTATIN 10 MG TAB PO SCH (20:05)
[2019-09-12] MEDS ORDERED: SODIUM CHLORIDE 0.9% 500 ML IV SCH (20:45)
[2019-09-13] MEDS: RASPBERRY SYRUP 5 ML UDP PO SCH ×5 (00:20→23:55)
[2019-09-13] MEDS: VANCOMYCIN HCL 250 MG/5 ML SOLN PO SCH ×5 (00:20→23:55)
[2019-09-13] MEDS: CALCITRIOL 0.25 MCG CAPSULE PO SCH (07:41)
[2019-09-13] MEDS: BUDESONIDE/FORMOTEROL FUMARATE 160/4.5 60 PUFFS/INHALER INH SCH ×2 (07:41→22:35)
[2019-09-13] MEDS: HEPARIN SOD 5,000 UNIT/0.5 ML VIAL SQ SCH ×2 (07:41→21:51)
[2019-09-13] MEDS: TIOTROPIUM BROMIDE 5 PUFF/90 MCG INH INH SCH (07:41)
[2019-09-13] MEDS: allopurinoL 300 MG TAB PO SCH (07:41)
[2019-09-13] MEDS: VITAMIN B COMPLEX TAB PO SCH (07:42)
[2019-09-13] MEDS: LACTOBACILLUS ACIDOPHILUS (FLORANEX) TAB PO SCH ×4 (07:42→22:37)
[2019-09-13] MEDS: CHOLECALCIFEROL 1,000 UNITS TAB PO SCH (07:42)
[2019-09-13] MEDS: FLUTICASONE PROPIONATE NA SPR 16 GM BTL SCH ×2 (07:42→22:38)
[2019-09-13] MEDS: METOPROLOL TARTRATE 25 MG TAB PO SCH ×2 (07:42→22:38)
[2019-09-13 08:18] LABS: BUN Creatinine Ratio 17.6 (10-20); Calcium 8.7 mg/dl (8.5-10.1); Creatinine Clr Calc Pharmacy 24.6 ml/min; Est GFR (African American) 28.4; Est GFR (Non-African American) 24.5; Magnesium 1.9 mg/dl (1.8-2.4); Potassium 4.1 mmol/L (3.5-5.1)
--- NOTE | 2019-09-13 09:17 | Nephrology Progress Note ---
Date of Service September 13, 2019 Assessment & Plan (1) Izbmk-yl-awfyqst kidney injury: Patient with acute kidney injury on CKD likely due to prerenal azotemia in setting of poor p.o. intake and GI losses. Patient also with evidence of chronic bladder outlet obstruction. Baseline creatinine of 1.8-2. Creatinine on admission was 2.6. Creatinine up to 2.4 today likely due to hypotension. Urinalysis showed concentrated urine with specific gravity of 1.021 but no RBCs or casts. Renal ultrasound showing evidence of chronic bladder outlet obstruction and atrophic left kidney of 7.2 cm. Right kidney 10.4 cm -Monitor renal function with daily BMP. -Encourage high protein diet (2) Metastatic cancer to lung: Patient planned for chemoradiation with paclitaxel and carboplatin. He understands that there is risk of worsening renal function with the chemotherapy regimen. He will need close monitoring of renal function and nephrology follow- up even after discharge. (3) Metabolic acidosis: Due to acute kidney injury. Improved. Recommend monitoring closely as patient continues to have diarrhea. Subjective He complains of fatigue. Diarrhoea is less. No SOB but still on oxygen by NC. Cr fluctuating. BP is low today and intermittently getting rapid A.fib Review of Systems Review of Systems: All systems reviewed & are unremarkable except as noted in HPI & below Physical Exam Physical Exam: General exam: Appears comfortable on oxygen NC, no acute distress HEENT: Pupils are equal and reactive to light Neck: No JVD, neck is supple trachea is midline Respiratory system: Clear breath sounds bilaterally. Gastrointestinal: Abdomen is soft, non distended, non tender, bowel sounds are present CVS: Regular rate and rhythm. No murmurs, rubs or gallops Musculoskeletal: No joint or muscle tenderness Extremities: Non tender, 1+ edema, peripheral pulses are present Neuro: Oriented, no tremors, no focal neurological deficits Skin: No rashes Results & Data Vital Signs (Past 12 Hours) Vital Signs Temp Pulse Pulse Resp BP BP Pulse Ox 09/13/19 07:53 36.3 C L 95 H 18 98/50 L 93 09/13/19 04:19 102 H 09/13/19 04:00 36.3 C L 88 18 117/74 98 09/12/19 23:28 36.6 C 102 H 20 108/62 92 Laboratory Results Laboratory Results - last 24 hr 09/12/19 09/12/19 09/12/19 07:36 11:42 16:15 Sodium Potassium Chloride Carbon Dioxide Anion Gap BUN Creatinine Est Cr Clr Drug Dosing Est GFR ( Amer) Est GFR (Non-Af Amer) BUN/Creatinine Ratio Glucose POC Glucose 108 H 123 H Calcium Magnesium NT-Pro-B Natriuret Pep 49808 H 09/12/19 09/13/19 09/13/19 20:01 07:29 07:37 Sodium 142 Potassium 4.1 Chloride 114 H Carbon Dioxide 21 Anion Gap 7.0 BUN 42 H Creatinine 2.39 H Est Cr Clr Drug Dosing 24.6 Est GFR ( Amer) 28.4 Est GFR (Non-Af Amer) 24.5 BUN/Creatinine Ratio 17.6 Glucose 111 H POC Glucose 101 H 117 H Calcium 8.7 Magnesium 1.9 NT-Pro-B Natriuret Pep (1) Oeegy-hq-qcqtbhg kidney injury Acute renal failure type: unspecified Chronic kidney disease stage: unspecified stage Qualified Code(s): N17.9 - Acute kidney failure, unspecified; N18.9 - Chronic kidney disease, unspecified (2) Metastatic cancer to lung Laterality: unspecified laterality Qualified Code(s): C78.00 - Secondary malignant neoplasm of unspecified lung
--- NOTE | 2019-09-13 15:03 | Cardiology Progress Note ---
Date of Service September 13, 2019 Assessment & Plan (1) Atrial fibrillation: Continue current dose of metoprolol, 25 mg twice daily. Given his multiple comorbidities, he is a poor candidate for anticoagulation. Continue aspirin. (2) Metastatic lung cancer (metastasis from lung to other site): (3) C. difficile colitis: (4) Qbmxc-dz-ncnmgva kidney injury: Subjective Patient seen in follow-up of atrial fibrillation. He looks more weak today when I had seen him 2 days ago. Atrial fibrillation at 90 to 100 bpm noted at rest. Recent blood pressure 100/52. He states his diarrhea has resolved, but he is having some trouble with nauseousness and vomiting first thing in the morning. Physical Exam Physical Exam: Temp Pulse Resp BP Pulse Ox 36.6 C 92 H 18 100/52 L 92 09/13/19 11:07 09/13/19 11:07 09/13/19 11:07 09/13/19 11:07 09/13/19 11:07 Constitutional: + ill appearing; no acute distress Respiratory: normal respiratory effort, lungs clear to auscultation Cardiovascular: Rate/Rhythm: + tachycardic and + irregularly irregular Heart Sounds: no murmur Vessels: no JVD Gastrointestinal (Abdomen): normal bowel sounds, soft, nontender, no hepatosplenomegaly Neurologic: PERRL, EOMI, accommodation nl, no face palsy, no dysarthria Results & Data Vital Signs (Past 12 Hours) Vital Signs Temp Pulse Pulse Resp BP BP Pulse Ox 09/13/19 11:07 36.6 C 92 H 18 100/52 L 92 09/13/19 07:53 36.3 C L 95 H 18 98/50 L 93 09/13/19 04:19 102 H 09/13/19 04:00 36.3 C L 88 18 117/74 98 (1) Metastatic lung cancer (metastasis from lung to other site) Laterality: unspecified laterality Qualified Code(s): C34.90 - Malignant neoplasm of unspecified part of unspecified bronchus or lung (2) Viypk-xj-elfvfbm kidney injury Acute renal failure type: unspecified Chronic kidney disease stage: unspecified stage Qualified Code(s): N17.9 - Acute kidney failure, unspecified; N18.9 - Chronic kidney disease, unspecified
--- NOTE | 2019-09-13 18:26 | Hospitalist Progress Note ---
Date of Service September 13, 2019 Assessment & Plan (1) C. difficile colitis: Admitted with weakness, ongoing diarrhea, dehydration stool testing positive for C. difficile Patient started with p.o. vancomycin dose increased to 250 mg 4 times daily-will need 10 days of treatment Added probiotics Continue contact isolation,diarreha has improved cont to monitor electrolytes : K /MG (2) Hcbnr-nq-ifaezdj kidney injury: Acute kidney failure with underlying CKD stage 3 baseline Cr 2 due to dehydration , GI loss creatitine improved Nephrology consulted apprecaite input cont to monitor BMP avoid NSAID's , IV contrasts (3) Hypokalemia: Due to ongoing GI loss: Diarrhea Replaced, follow labs in AM (4) Atrial fibrillation: Newly diagnosed during this admission Appreciate input from cardiology on Beta-ally :cont on Lopressor 25 mg twice daily Given high risk of bleeding, and transient presentation of atrial fibrillation, started while in hospital with acute illness Anticoagulation is not recommended (5) Metastatic lung cancer (metastasis from lung to other site): Metastatic lung cancer with mets to pleural space Status post lung resection radiation/ chemo treatment-Follows with Oncology Dr William at [place] Patient is overall poor health with poor immune status Very high risk for developing acute abdomen from C. difficile colitis Continue to monitor patient closely CT chest and Chest xray reviews ;rt lower lobe infiltrate noted no evidence of pneumonia -no fever or chills , no cough will limit Abx given C diff colitis speech eval requested to assess dysphagia /aspiration risk -appreciate input high risk for dysphagia given hx of Radiation on chest wall for Lung Ca pt reports of episodes of swallowing difficulty bedside swallow eval does not show any evidence of aspiration scheduled for VFSS ( video fluro swallow study ) this AM (6) Protein-calorie malnutrition, moderate: Due to metastatic malignancy ,poor p.o. 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, fpc chronic smoking hx ( quit 2010 after dx with Lung CA ) scattered wheeze noted cont PRN Neb tx (8) HTN (hypertension): BP stable now on beta ally for Afib RVR with holding parameters ( hold for SBP < 100 ) FULL CODE DVT PROPHYLAXIS : moderate to high risk for DVT ordered sub q heparin DISPOSITION : lives at home with significant deconditioning noted PT/OT eval requested Subjective feels very weak diarrhea has improved 2 soft bowel movement this am no complain of abdominal pain , no nausea or vomiting remains in Afib with HR in 100's on monitor Physical Exam Constitutional: + ill appearing and + thin; no acute distress Eyes: PERRL, conjunctivae normal, anicteric sclerae ENMT: Mouth: + oral mucosal abnormality (Dry oral mucosa) Neck: trachea midline, no thyromegaly Respiratory: no respiratory distress Auscultation: + diminished lung sounds, + crackles, + rales and + wheezes Cardiovascular: Rate/Rhythm: + abnormal rhythm (Afib ) Gastrointestinal (Abdomen): Inspection/Auscultation: normal bowel sounds Percussion/Palpation: abdomen soft; abdomen nontender Skin: no rashes, warm and dry Neurologic: PERRL, EOMI, accommodation nl, no face palsy, no dysarthria Psychiatric: A+Ox3, euthymic affect Orientation: alert Results & Data Vital Signs (Past 12 Hours) Vital Signs Temp Pulse Resp BP Pulse Ox 09/13/19 15:26 36.7 C 103 H 18 96/62 L 98 09/13/19 11:07 36.6 C 92 H 18 100/52 L 92 09/13/19 07:53 36.3 C L 95 H 18 98/50 L 93 (1) [place]-ar-aggiuxr kidney injury Acute renal failure type: unspecified Chronic kidney disease stage: unspecified stage Qualified Code(s): N17.9 - Acute kidney failure, unspecified; N18.9 - Chronic kidney disease, unspecified (2) Metastatic lung cancer (metastasis from lung to other site) Laterality: unspecified laterality Qualified Code(s): C34.90 - Malignant neoplasm of unspecified part of unspecified bronchus or lung
[2019-09-13] MEDS ORDERED: CHOLESTYRAMINE LIGHT 4 GM PKT PO ONE (19:40)
[2019-09-13] MEDS: ASPIRIN 81 MG ECTAB PO SCH (22:36)
[2019-09-13] MEDS: SIMVASTATIN 10 MG TAB PO SCH (22:37)
[2019-09-14] MEDS ORDERED: MAGNESIUM SULFATE / D5W 1 GM/100 ML BAG IV ONE (00:15)
[2019-09-14] MEDS ORDERED: ALBUTEROL HFA 8 GM INHALER INH PRN (03:35)
[2019-09-14] MEDS: VANCOMYCIN HCL 250 MG/5 ML SOLN PO SCH ×3 (06:01→17:16)
[2019-09-14] MEDS: RASPBERRY SYRUP 5 ML UDP PO SCH ×3 (06:01→17:15)
[2019-09-14] MEDS: LACTOBACILLUS ACIDOPHILUS (FLORANEX) TAB PO SCH ×4 (08:50→19:52)
[2019-09-14] MEDS: CHOLECALCIFEROL 1,000 UNITS TAB PO SCH (08:51)
[2019-09-14] MEDS: METOPROLOL TARTRATE 25 MG TAB PO SCH ×2 (08:53→19:53)
[2019-09-14] MEDS: VITAMIN B COMPLEX TAB PO SCH (08:54)
[2019-09-14] MEDS: CALCITRIOL 0.25 MCG CAPSULE PO SCH (08:54)
[2019-09-14] MEDS: BUDESONIDE/FORMOTEROL FUMARATE 160/4.5 60 PUFFS/INHALER INH SCH ×2 (08:55→19:53)
[2019-09-14] MEDS: TIOTROPIUM BROMIDE 5 PUFF/90 MCG INH INH SCH (08:55)
[2019-09-14] MEDS: FLUTICASONE PROPIONATE NA SPR 16 GM BTL SCH ×2 (08:56→19:52)
[2019-09-14] MEDS: allopurinoL 300 MG TAB PO SCH (08:57)
[2019-09-14] MEDS: HEPARIN SOD 5,000 UNIT/0.5 ML VIAL SQ SCH ×2 (08:57→19:56)
[2019-09-14 09:09] LABS: Hematocrit (blood only) 32.2 % (42-52); Hemoglobin 10.3 g/dL (14.0-18.0); Mean Corpuscular Hemoglobin 30.8 pg (25-34); Mean Corpuscular Volume 96.4 fL (80-100); Mean Platelet Volume 11.9 fL (7.4-10.4); Platelet Count 132 K/uL (130-400); RDW Coefficient of Variation 16.9 % (11.5-14.5); RDW Standard Deviation 56.9 fL (36.4-46.3); Red Blood Count 3.34 M/uL (4.7-6.1); White Blood Count 8.25 K/uL (4.8-10.8)
[2019-09-14 09:36] LABS: BUN Creatinine Ratio 17.8 (10-20); Calcium 8.8 mg/dl (8.5-10.1); Creatinine Clr Calc Pharmacy 25.1 ml/min; Est GFR (African American) 29.1; Est GFR (Non-African American) 25.1
--- NOTE | 2019-09-14 10:36 | Hospitalist Progress Note ---
Date of Service September 14, 2019 Assessment & Plan (1) C. difficile colitis: Admitted with weakness, ongoing diarrhea, dehydration stool testing positive for C. difficile Patient started with p.o. vancomycin dose increased to 250 mg 4 times daily-will need 10 days of treatment Added probiotics Continue contact isolation, did not had any loose bowel movement overnight (2) Rtwzi-zy-etguuph kidney injury: Acute kidney failure with underlying CKD stage 3 baseline Cr 2 due to dehydration , GI loss creatitine improved Nephrology consulted apprecaite input cont to monitor BMP avoid NSAID's , IV contrasts (3) Hypokalemia: Due to ongoing GI loss: Diarrhea Replaced, follow labs in AM (4) Atrial fibrillation: Newly diagnosed during this admission Appreciate input from cardiology on Beta-ally :cont on Lopressor 25 mg twice daily Given high risk of bleeding, and transient presentation of atrial fibrillation, started while in hospital with acute illness Anticoagulation is not recommended (5) Metastatic lung cancer (metastasis from lung to other site): Metastatic lung cancer with mets to pleural space Status post lung resection radiation/ chemo treatment-Follows with Oncology Dr William at [place] Patient is overall poor health with poor immune status Very high risk for developing acute abdomen from C. difficile colitis Continue to monitor patient closely CT chest and Chest xray reviews ;rt lower lobe infiltrate noted no evidence of pneumonia -no fever or chills , no cough will limit Abx given C diff colitis speech eval requested to assess dysphagia /aspiration risk -appreciate input high risk for dysphagia given hx of Radiation on chest wall for Lung Ca pt reports of episodes of swallowing difficulty bedside swallow eval does not show any evidence of aspiration VFSS shows no evidence of aspiration (6) Protein-calorie malnutrition, moderate: Due to metastatic malignancy ,poor p.o. 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, halfway chronic smoking hx ( quit 2010 after dx with Lung CA ) scattered wheeze noted cont PRN Neb tx (8) HTN (hypertension): BP stable now on beta ally for Afib RVR with holding parameters ( hold for SBP < 100 ) FULL CODE DVT PROPHYLAXIS : moderate to high risk for DVT ordered sub q heparin DISPOSITION : lives at home with significant deconditioning noted PT/OT eval requested appreciate input Subjective did not had any loose stool or bowel movement overnight feels very weak has no appetite ,did not eat much breakfast " cant eat these stuff anymore " - nothing tastes right very tired of being in hospital wants get out as soon as possile no abdominal pain , no nausea or vomiting no cough or SOB no fever or chills Physical Exam Constitutional: + ill appearing and + thin; no acute distress Eyes: PERRL, conjunctivae normal, anicteric sclerae Neck: trachea midline, no thyromegaly Respiratory: no respiratory distress and no cough Auscultation: no crackles and no wheezes Cardiovascular: Rate/Rhythm: + abnormal rhythm (Afib ) Gastrointestinal (Abdomen): Inspection/Auscultation: normal bowel sounds Percussion/Palpation: abdomen soft; abdomen nontender Skin: no rashes, warm and dry Neurologic: PERRL, EOMI, accommodation nl, no face palsy, no dysarthria Psychiatric: A+Ox3, euthymic affect Orientation: alert Results & Data Vital Signs (Past 12 Hours) Vital Signs Temp Pulse Pulse Resp BP Pulse Ox 09/14/19 07:24 36.6 C 90 16 137/80 90 09/14/19 03:51 36.6 C 82 20 135/78 96 09/14/19 02:15 142 H 09/13/19 23:57 36.5 C 104 H 20 102/62 96 (1) Metastatic lung cancer (metastasis from lung to other site) Laterality: unspecified laterality Qualified Code(s): C34.90 - Malignant n eoplasm of unspecified part of unspecified bronchus or lung (2) Oerva-hz-mbwtfjj kidney injury Acute renal failure type: unspecified Chronic kidney disease stage: unspecified stage Qualified Code(s): N17.9 - Acute kidney failure, unspecified; N18.9 - Chronic kidney disease, unspecified
[2019-09-14] MEDS: NYSTATIN SUSP 500,000 U/5 ML UDC PO SCH ×4 (12:53→19:54)
--- NOTE | 2019-09-14 17:29 | Nephrology Progress Note ---
Date of Service September 14, 2019 Assessment & Plan (1) Kazwq-tf-hengbid kidney injury: Patient with acute kidney injury on CKD likely due to prerenal azotemia in setting of poor p.o. intake and GI losses. Patient also with evidence of chronic bladder outlet obstruction. Baseline creatinine of 1.8-2. Creatinine on admission was 2.6. Creatinine stable at 2.4 today. Urinalysis showed concentrated urine with specific gravity of 1.021 but no RBCs or casts. Renal ultrasound showing evidence of chronic bladder outlet obstruction and atrophic left kidney of 7.2 cm. Right kidney 10.4 cm -Monitor renal function with daily BMP. -Encourage high protein diet -Remove garcia catheter (2) Metastatic cancer to lung: Patient planned for chemoradiation with paclitaxel and carboplatin. He understands that there is risk of worsening renal function with the chemotherapy regimen. He will need close monitoring of renal function and nephrology follow- up even after discharge. (3) Metabolic acidosis: Due to acute kidney injury. Improved. Recommend monitoring closely as patient continues to have diarrhea. Subjective Patient seen in the morning. No diarrhoea today. Still weak and poor appetite. Cr stable today Review of Systems Review of Systems: All systems reviewed & are unremarkable except as noted in HPI & below Physical Exam Physical Exam: General exam: Appears comfortable, no acute distress HEENT: Pupils are equal and reactive to light Neck: No JVD, neck is supple trachea is midline Respiratory system: Clear breath sounds bilaterally. Gastrointestinal: Abdomen is soft, non distended, non tender, bowel sounds are present CVS: Regular rate and rhythm. No murmurs, rubs or gallops Musculoskeletal: No joint or muscle tenderness Extremities: Non tender, no edema, peripheral pulses are present Neuro: Oriented, no tremors, no focal neurological deficits Skin: No rashes Results & Data Vital Signs (Past 12 Hours) Vital Signs Temp Pulse Resp BP Pulse Ox 09/14/19 14:59 36.8 C 90 16 105/63 90 09/14/19 07:24 36.6 C 90 16 137/80 90 Laboratory Results Laboratory Results - last 24 hr 09/13/19 09/14/19 09/14/19 20:02 07:34 08:34 WBC 8.25 RBC 3.34 L Hgb 10.3 L Hct 32.2 L MCV 96.4 MCH 30.8 MCHC 32.0 RDW Std Deviation 56.9 H RDW Coeff of Brittany 16.9 H Plt Count 132 MPV 11.9 H Sodium Potassium Chloride Carbon Dioxide Anion Gap BUN Creatinine Est Cr Clr Drug Dosing Est GFR ( Amer) Est GFR (Non-Af Amer) BUN/Creatinine Ratio Glucose POC Glucose 88 86 Calcium 09/14/19 09/14/19 08:34 11:39 WBC RBC Hgb Hct MCV MCH MCHC RDW Std Deviation RDW Coeff of Brittany Plt Count MPV Sodium 141 Potassium 4.0 Chloride 114 H Carbon Dioxide 20 L Anion Gap 7.0 BUN 42 H Creatinine 2.34 H Est Cr Clr Drug Dosing 25.1 Est GFR ( Amer) 29.1 Est GFR (Non-Af Amer) 25.1 BUN/Creatinine Ratio 17.8 Glucose 90 POC Glucose 97 Calcium 8.8 (1) Taary-vb-fahnhoi kidney injury Acute renal failure type: unspecified Chronic kidney disease stage: unspecified stage Qualified Code(s): N17.9 - Acute kidney failure, unspecified; N18.9 - Chronic kidney disease, unspecified (2) Metastatic cancer to lung Laterality: unspecified laterality Qualified Code(s): C78.00 - Secondary malignant neoplasm of unspecified lung
[2019-09-14] MEDS: SIMVASTATIN 10 MG TAB PO SCH (19:53)
[2019-09-14] MEDS: ASPIRIN 81 MG ECTAB PO SCH (19:55)
[2019-09-15] MEDS: RASPBERRY SYRUP 5 ML UDP PO SCH ×5 (00:19→23:28)
[2019-09-15] MEDS: VANCOMYCIN HCL 250 MG/5 ML SOLN PO SCH ×5 (00:19→23:28)
[2019-09-15 00:31] LABS: Basophils # (auto) 0.01 K/uL (0-0.2); Basophils % (auto) 0.1 %; Eosinophils # (auto) 0.03 K/uL (0-0.5); Eosinophils % (auto) 0.4 %; Hematocrit (blood only) 31.5 % (42-52); Hemoglobin 10.2 g/dL (14.0-18.0); Immature Granulocytes # (auto) 0.07 K/uL (0.00-0.02); Immature Granulocytes % (auto) 0.9 %; Lymphocytes % (auto) 7.5 %; Mean Corpuscular Hemoglobin 30.5 pg (25-34); Mean Corpuscular Hgb Conc 32.4 g/dL (32-36); Mean Corpuscular Volume 94.3 fL (80-100); Mean Platelet Volume 11.5 fL (7.4-10.4); Monocytes # (auto) 0.23 K/uL (0.11-0.59); Monocytes % (auto) 2.9 %; Neutrophils # (auto) 7.03 K/uL (1.4-6.5); Neutrophils % (auto) 88.2 %; Platelet Count 127 K/uL (130-400); Red Blood Count 3.34 M/uL (4.7-6.1); White Blood Count 7.97 K/uL (4.8-10.8)
[2019-09-15 00:49] LABS: BUN Creatinine Ratio 16.6 (10-20); Calcium 8.3 mg/dl (8.5-10.1); Creatinine Clr Calc Pharmacy 26.2 ml/min; Est GFR (African American) 30.7; Est GFR (Non-African American) 26.5; Magnesium 1.9 mg/dl (1.8-2.4)
[2019-09-15] MEDS: TIOTROPIUM BROMIDE 5 PUFF/90 MCG INH INH SCH (08:01)
[2019-09-15] MEDS: NYSTATIN SUSP 500,000 U/5 ML UDC PO SCH ×4 (08:01→21:15)
[2019-09-15] MEDS: HEPARIN SOD 5,000 UNIT/0.5 ML VIAL SQ SCH ×2 (08:01→21:13)
[2019-09-15] MEDS: FLUTICASONE PROPIONATE NA SPR 16 GM BTL SCH ×2 (08:01→21:11)
[2019-09-15] MEDS: METOPROLOL TARTRATE 25 MG TAB PO SCH ×2 (08:02→21:12)
[2019-09-15] MEDS: CALCITRIOL 0.25 MCG CAPSULE PO SCH (08:02)
[2019-09-15] MEDS: CHOLECALCIFEROL 1,000 UNITS TAB PO SCH (08:02)
[2019-09-15] MEDS: LACTOBACILLUS ACIDOPHILUS (FLORANEX) TAB PO SCH ×4 (08:02→21:11)
[2019-09-15] MEDS: allopurinoL 300 MG TAB PO SCH (08:02)
[2019-09-15] MEDS: VITAMIN B COMPLEX TAB PO SCH (08:02)
[2019-09-15] MEDS: BUDESONIDE/FORMOTEROL FUMARATE 160/4.5 60 PUFFS/INHALER INH SCH ×2 (08:02→21:14)
--- NOTE | 2019-09-15 10:43 | Hospitalist Progress Note ---
Date of Service September 15, 2019 Assessment & Plan (1) C. difficile colitis: Admitted with weakness, ongoing diarrhea, dehydration stool testing positive for C. 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 Walsh notes: Metastatic lung cancer with mets to pleural space Status post lung resection radiation/ chemo treatment-Follows with Oncology Dr William at [place] CT chest and Chest xray: rt lower lobe infiltrate noted no evidence of pneumonia -no fever or chills , no cough speech eval requested to assess dysphagia /aspiration risk bedside swallow eval does not show any evidence of aspiration VFSS shows no evidence of aspiration (6) Protein-calorie malnutrition, moderate: Due to metastatic malignancy ,poor p.o. 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 Subjective ff up for C diff colitis seen resting in bed, comfortable oriented, alert states he continues to feel improved had 2 BMs yesterday, soft no BMs today so far no abdominal pain, nausea/vomiting denies other symptoms Review of Systems Review of Systems: All systems reviewed & are unremarkable except as noted in HPI & below Physical Exam Physical Exam: General- oriented x 2, not in distress, speaks in sentences with no effort or accessory muscle use Head- atraumatic Eyes- PERRL, EOMI, anicteric ENT- oropharynx clear Neck- supple, no JVD, no adenopathy, no thyromegaly; carotids +2/2, no bruits appreciated Lungs- clear to auscultation bilaterally, no rales/wheezes Heart- normal rate, regular rhythm; no murmur, no gallop, no rub appreciated Abdomen- normal bowel sounds, nondistended, soft, nontender, no masses or hepatosplenomegaly Extremities- no pretibial edema, no calf tenderness; peripheral pulses intact Neuro- alert, oriented x 3; CN 2-12 grossly intact; motor 5/5 bilaterally;sensation 100% on all extremities; no other gross focal neurologic deficits Skin- warm & dry Results & Data Vital Signs (Past 12 Hours) Vital Signs Temp Pulse Pulse Resp BP Pulse Ox 09/15/19 07:44 36.5 C 83 18 123/77 94 09/15/19 04:14 36.4 C L 94 H 16 105/70 93 09/15/19 00:01 85 09/14/19 23:56 36.9 C 77 18 103/51 L 91 Laboratory Results Laboratory Results - last 24 hr 09/15/19 09/15/19 00:20 00:20 WBC 7.97 RBC 3.34 L Hgb 10.2 L Hct 31.5 L MCV 94.3 MCH 30.5 MCHC 32.4 RDW Std Deviation 56.0 H RDW Coeff of Brittany 17.0 H Plt Count 127 L MPV 11.5 H Immature Gran % (Auto) 0.9 Neut % (Auto) 88.2 Lymph % (Auto) 7.5 [place] % (Auto) 2.9 Eos % (Auto) 0.4 Baso % (Auto) 0.1 Immature Gran # (Auto) 0.07 H Neut # (Auto) 7.03 H Lymph # (Auto) 0.60 L [place] # (Auto) 0.23 Eos # (Auto) 0.03 Baso # (Auto) 0.01 Sodium 141 Potassium 4.0 Chloride 114 H Carbon Dioxide 23 Anion Gap 4.0 BUN 37 H Creatinine 2.24 H Est Cr Clr Drug Dosing 26.2 Est GFR ( Amer) 30.7 Est GFR (Non-Af Amer) 26.5 BUN/Creatinine Ratio 16.6 Glucose 95 Calcium 8.3 L Magnesium 1.9 (1) Metastatic lung cancer (metastasis from lung to other site) Laterality: unspecified laterality Qualified Code(s): C34.90 - Malignant neoplasm of unspecified part of unspecified bronchus or lung (2) Lkogh-ms-fpdcxbs kidney injury Acute renal failure type: unspecified Chronic kidney disease stage: unspecified stage Qualified Code(s): N17.9 - Acute kidney failure, unspecified; N18.9 - Chronic kidney disease, unspecified
--- NOTE | 2019-09-15 15:44 | Nephrology Progress Note ---
Date of Service September 15, 2019 Assessment & Plan (1) Stccs-zj-gmlhzsa kidney injury: Patient with acute kidney injury on CKD likely due to prerenal azotemia in setting of poor p.o. intake and GI losses. Patient also with evidence of chronic bladder outlet obstruction. Baseline creatinine of 1.8-2. Creatinine on admission was 2.6. Creatinine stable at 2.24 today. Urinalysis showed concentrated urine with specific gravity of 1.021 but no RBCs or casts. Renal ultrasound showing evidence of chronic bladder outlet obstruction and atrophic left kidney of 7.2 cm. Right kidney 10.4 cm -Monitor renal function with daily BMP. -Encourage high protein diet -Remove garcia catheter (2) Metastatic cancer to lung: Patient planned for chemoradiation with paclitaxel and carboplatin. He understands that there is risk of worsening renal function with the chemotherapy regimen. He will need close monitoring of renal function and nephrology follow- up even after discharge. (3) Metabolic acidosis: Due to acute kidney injury. Improved. Recommend monitoring closely due to diarrhea. Subjective Diarrhea is better. No vomiting. Still has poor appetite. He is urinating well, no dysuria. Review of Systems Review of Systems: All systems reviewed & are unremarkable except as noted in HPI & below Physical Exam Physical Exam: General exam: Appears comfortable, no acute distress HEENT: Pupils are equal and reactive to light Neck: No JVD, neck is supple trachea is midline Respiratory system: Clear breath sounds bilaterally. Gastrointestinal: Abdomen is soft, non distended, non tender, bowel sounds are present CVS: Regular rate and rhythm. No murmurs, rubs or gallops Musculoskeletal: No joint or muscle tenderness Extremities: Non tender, 1+ edema, peripheral pulses are present Neuro: Oriented, no tremors, no focal neurological deficits Skin: No rashes Results & Data Vital Signs (Past 12 Hours) Vital Signs Temp Pulse Resp BP Pulse Ox 09/15/19 15:36 36.8 C 79 20 92/56 L 97 09/15/19 11:20 36.7 C 76 18 94/55 L 90 09/15/19 07:44 36.5 C 83 18 123/77 94 09/15/19 04:14 36.4 C L 94 H 16 105/70 93 Laboratory Results Laboratory Results - last 24 hr 09/15/19 09/15/19 00:20 00:20 WBC 7.97 RBC 3.34 L Hgb 10.2 L Hct 31.5 L MCV 94.3 MCH 30.5 MCHC 32.4 RDW Std Deviation 56.0 H RDW Coeff of Brittany 17.0 H Plt Count 127 L MPV 11.5 H Immature Gran % (Auto) 0.9 Neut % (Auto) 88.2 Lymph % (Auto) 7.5 [place] % (Auto) 2.9 Eos % (Auto) 0.4 Baso % (Auto) 0.1 Immature Gran # (Auto) 0.07 H Neut # (Auto) 7.03 H Lymph # (Auto) 0.60 L [place] # (Auto) 0.23 Eos # (Auto) 0.03 Baso # (Auto) 0.01 Sodium 141 Potassium 4.0 Chloride 114 H Carbon Dioxide 23 Anion Gap 4.0 BUN 37 H Creatinine 2.24 H Est Cr Clr Drug Dosing 26.2 Est GFR ( Amer) 30.7 Est GFR (Non-Af Amer) 26.5 BUN/Creatinine Ratio 16.6 Glucose 95 Calcium 8.3 L Magnesium 1.9 (1) Kyjsp-bv-anutqay kidney injury Acute renal failure type: unspecified Chronic kidney disease stage: u nspecified stage Qualified Code(s): N17.9 - Acute kidney failure, unspecified; N18.9 - Chronic kidney disease, unspecified (2) Metastatic cancer to lung Laterality: unspecified laterality Qualified Code(s): C78.00 - Secondary malignant neoplasm of unspecified lung
[2019-09-15] MEDS: ASPIRIN 81 MG ECTAB PO SCH (21:10)
[2019-09-15] MEDS: SIMVASTATIN 10 MG TAB PO SCH (21:12)
[2019-09-16] MEDS: RASPBERRY SYRUP 5 ML UDP PO SCH ×4 (05:55→23:41)
[2019-09-16] MEDS: VANCOMYCIN HCL 250 MG/5 ML SOLN PO SCH ×4 (05:55→23:41)
[2019-09-16] MEDS: TIOTROPIUM BROMIDE 5 PUFF/90 MCG INH INH SCH (08:21)
[2019-09-16] MEDS: CHOLECALCIFEROL 1,000 UNITS TAB PO SCH (08:21)
[2019-09-16] MEDS: LACTOBACILLUS ACIDOPHILUS (FLORANEX) TAB PO SCH ×4 (08:21→20:15)
[2019-09-16] MEDS: CALCITRIOL 0.25 MCG CAPSULE PO SCH (08:21)
[2019-09-16] MEDS: BUDESONIDE/FORMOTEROL FUMARATE 160/4.5 60 PUFFS/INHALER INH SCH ×2 (08:21→20:13)
[2019-09-16] MEDS: METOPROLOL TARTRATE 25 MG TAB PO SCH ×2 (08:21→20:14)
[2019-09-16] MEDS: allopurinoL 300 MG TAB PO SCH (08:21)
[2019-09-16] MEDS: VITAMIN B COMPLEX TAB PO SCH (08:21)
[2019-09-16] MEDS: HEPARIN SOD 5,000 UNIT/0.5 ML VIAL SQ SCH ×2 (08:22→20:14)
[2019-09-16] MEDS: NYSTATIN SUSP 500,000 U/5 ML UDC PO SCH ×4 (08:22→20:14)
[2019-09-16] MEDS: FLUTICASONE PROPIONATE NA SPR 16 GM BTL SCH ×2 (08:22→20:14)
--- NOTE | 2019-09-16 10:10 | Nephrology Progress Note ---
Date of Service September 16, 2019 Assessment & Plan (1) Nlpsl-sf-drzeqsk kidney injury: Patient with acute kidney injury on CKD likely due to prerenal azotemia in setting of poor p.o. intake and GI losses. Patient also with evidence of chronic bladder outlet obstruction. Baseline creatinine of 1.8-2. Creatinine on admission was 2.6. Creatinine stable at 2.24. Urinalysis showed concentrated urine with specific gravity of 1.021 but no RBCs or casts. Renal ultrasound showing evidence of chronic bladder outlet obstruction and atrophic left kidney of 7.2 cm. Right kidney 10.4 cm -Monitor renal function with daily BMP. -Encourage high protein diet -Renal will sign off. Please reconsult if additional questions or concerns. (2) Metastatic cancer to lung: Patient planned for chemoradiation with paclitaxel and carboplatin. He understands that there is risk of worsening renal function with the chemotherapy regimen. He will need close monitoring of renal function and nephrology follow- up even after discharge. (3) Metabolic acidosis: Due to acute kidney injury. Improved. Recommend monitoring closely due to diarrhea. Subjective No diarrhea today. No urinary symptoms. No Shortness of breath today Review of Systems Review of Systems: All systems reviewed & are unremarkable except as noted in HPI & below Physical Exam Physical Exam: General exam: Appears comfortable, no acute distress HEENT: Pupils are equal and reactive to light Neck: No JVD, neck is supple trachea is midline Respiratory system: Clear breath sounds bilaterally. Gastrointestinal: Abdomen is soft, non distended, non tender, bowel sounds are present CVS: Regular rate and rhythm. No murmurs, rubs or gallops Musculoskeletal: No joint or muscle tenderness Extremities: Non tender, 1+ edema, peripheral pulses are present Neuro: Oriented, no tremors, no focal neurological deficits Skin: No rashes Results & Data Vital Signs (Past 12 Hours) Vital Signs Temp Pulse Resp BP Pulse Ox 09/16/19 07:40 36.4 C L 76 18 128/77 95 09/16/19 03:47 36.7 C 77 18 143/81 H 94 09/15/19 22:56 37.0 C 83 17 120/73 93 (1) Fheot-fk-uakxzmd kidney injury Acute renal failure type: unspecified Chronic kidney disease stage: unspecified stage Qualified Code(s): N17.9 - Acute kidney failure, unspecified; N18.9 - Chronic kidney disease, unspecified (2) Metastatic cancer to lung Laterality: unspecified laterality Qualified Code(s): C78.00 - Secondary malignant neoplasm of unspecified lung
--- NOTE | 2019-09-16 17:34 | Hospitalist Progress Note ---
Date of Service September 16, 2019 Assessment & Plan (1) C. difficile colitis: Admitted with weakness, ongoing diarrhea, dehydration stool testing positive for C. 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 Walsh notes: Metastatic lung cancer with mets to pleural space Status post lung resection radiation/ chemo treatment-Follows with Oncology Dr William at [place] CT chest and Chest xray: rt lower lobe infiltrate noted no evidence of pneumonia -no fever or chills , no cough speech eval requested to assess dysphagia /aspiration risk bedside swallow eval does not show any evidence of aspiration VFSS shows no evidence of aspiration (6) Protein-calorie malnutrition, moderate: Due to metastatic malignancy ,poor p.o. 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, long-term chronic smoking hx ( quit 2010 after dx with Lung CA ) scattered wheeze noted cont PRN Neb tx (8) HTN (hypertension): BP stable now on beta ally for Afib RVR with holding parameters ( hold for SBP < 100 ) FULL CODE DVT PROPHYLAXIS : moderate to high risk for DVT ordered sub q heparin q12 DISPOSITION : patient agreeable for Rehab/SNF casework specialist informed Subjective Follow-up for C. difficile colitis Seen resting in bed, comfortable, not in distress No diarrhea since yesterday No abdominal pain, fevers or chills, nausea or vomiting No other symptoms Review of Systems Review of Systems: All systems reviewed & are unremarkable except as noted in HPI & below Physical Exam Physical Exam: General- oriented x 3, not in distress, speaks in sentences with no effort or accessory muscle use Eyes- anicteric Neck- no JVD Lungs- clear breath sounds bilaterally, no rales/wheezes Heart- normal rate, regular rhythm; no murmurs Abdomen- normal bowel sounds, nondistended, soft, nontender Extremities- no pretibial edema, no calf tenderness Neuro- alert, oriented x 3; no gross focal neurologic deficits Skin- warm & dry Results & Data Vital Signs (Past 12 Hours) Vital Signs Temp Pulse Pulse Resp BP Pulse Ox 09/16/19 16:41 79 09/16/19 15:41 36.4 C L 80 18 125/75 90 09/16/19 11:32 36.8 C 75 18 104/67 95 09/16/19 07:40 36.4 C L 76 18 128/77 95 (1) Qxofo-nn-ihevfxu kidney injury Acute renal failure type: unspecified Chronic kidney disease stage: unspecified stage Qualified Code(s): N17.9 - Acute kidney failure, unspecified; N18.9 - Chronic kidney disease, unspecified (2) Metastatic lung cancer (metastasis from lung to other site) Laterality: unspecified laterality Qualified Code(s): C34.90 - Malignant neoplasm of unspecified part of unspecified bronchus or lung
[2019-09-16] MEDS: SIMVASTATIN 10 MG TAB PO SCH (20:15)
[2019-09-16] MEDS: ASPIRIN 81 MG ECTAB PO SCH (20:15)
[2019-09-17] MEDS: RASPBERRY SYRUP 5 ML UDP PO SCH ×3 (05:32→18:03)
[2019-09-17] MEDS: VANCOMYCIN HCL 250 MG/5 ML SOLN PO SCH ×3 (05:32→18:03)
[2019-09-17] MEDS: FLUTICASONE PROPIONATE NA SPR 16 GM BTL SCH ×2 (07:51→20:35)
[2019-09-17] MEDS: VITAMIN B COMPLEX TAB PO SCH (07:51)
[2019-09-17] MEDS: HEPARIN SOD 5,000 UNIT/0.5 ML VIAL SQ SCH ×3 (07:51→20:36)
[2019-09-17] MEDS: allopurinoL 300 MG TAB PO SCH (07:51)
[2019-09-17] MEDS: CHOLECALCIFEROL 1,000 UNITS TAB PO SCH (07:51)
[2019-09-17] MEDS: CALCITRIOL 0.25 MCG CAPSULE PO SCH (07:51)
[2019-09-17] MEDS: METOPROLOL TARTRATE 25 MG TAB PO SCH ×2 (07:52→20:34)
[2019-09-17] MEDS: TIOTROPIUM BROMIDE 5 PUFF/90 MCG INH INH SCH (07:52)
[2019-09-17] MEDS: LACTOBACILLUS ACIDOPHILUS (FLORANEX) TAB PO SCH ×4 (07:52→20:35)
[2019-09-17] MEDS: NYSTATIN SUSP 500,000 U/5 ML UDC PO SCH ×4 (07:52→20:34)
[2019-09-17] MEDS: BUDESONIDE/FORMOTEROL FUMARATE 160/4.5 60 PUFFS/INHALER INH SCH ×2 (07:52→20:34)
--- NOTE | 2019-09-17 18:22 | Hospitalist Progress Note ---
Date of Service September 17, 2019 Assessment & Plan (1) C. difficile colitis: Admitted with weakness, ongoing diarrhea, dehydration stool testing positive for C. 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 Walsh notes: Metastatic lung cancer with mets to pleural space Status post lung resection radiation/ chemo treatment-Follows with Oncology Dr William at [place] CT chest and Chest xray: rt lower lobe infiltrate noted no evidence of pneumonia -no fever or chills , no cough speech eval requested to assess dysphagia /aspiration risk bedside swallow eval does not show any evidence of aspiration VFSS shows no evidence of aspiration (6) Protein-calorie malnutrition, moderate: Due to metastatic malignancy ,poor p.o. 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 difficile colitis Seen sitting up in bed, comfortable, not in distress. States he feels fine overall No diarrhea, no abdominal pain no nausea vomiting Denies any symptoms Review of Systems Review of Systems: All systems reviewed & are unremarkable except as noted in HPI & below Physical Exam Physical Exam: General- oriented x 2, not in distress, speaks in sentences with no effort or accessory muscle use Eyes- anicteric Neck- no JVD Lungs- clear BS bilaterally Heart- normal rate, regular rhythm; no murmurs Abdomen- normal bowel sounds, nondistended, soft, nontender Extremities- no pretibial edema, no calf tenderness Neuro- alert, oriented x 2; no gross focal neurologic deficits Skin- warm & dry Results & Data Vital Signs (Past 12 Hours) Vital Signs Temp Pulse Pulse Resp BP Pulse Ox 09/17/19 16:00 78 09/17/19 14:44 36.9 C 82 18 117/71 92 09/17/19 11:33 36.3 C L 75 18 114/68 95 09/17/19 07:26 36.7 C 81 18 140/79 95 (1) Tfjyr-oo-zhoxfta kidney injury Acute renal failure type: unspecified Chronic kidney disease stage: unspecified stage Qualified Code(s): N17.9 - Acute kidney failure, unspecified; N18.9 - Chronic kidney disease, unspecified (2) Metastatic lung cancer (metastasis from lung to other site) Laterality: unspecified laterality Qualified Code(s): C34.90 - Malignant neoplasm of unspecified part of unspecified bronchus or lung
[2019-09-17] MEDS: ASPIRIN 81 MG ECTAB PO SCH (20:34)
[2019-09-18] MEDS: RASPBERRY SYRUP 5 ML UDP PO SCH ×5 (00:27→23:14)
[2019-09-18] MEDS: VANCOMYCIN HCL 250 MG/5 ML SOLN PO SCH ×5 (00:27→23:14)
[2019-09-18] MEDS: allopurinoL 300 MG TAB PO SCH (08:04)
[2019-09-18] MEDS: METOPROLOL TARTRATE 25 MG TAB PO SCH ×2 (08:04→22:07)
[2019-09-18] MEDS: VITAMIN B COMPLEX TAB PO SCH (08:04)
[2019-09-18] MEDS: CHOLECALCIFEROL 1,000 UNITS TAB PO SCH (08:04)
[2019-09-18] MEDS: CALCITRIOL 0.25 MCG CAPSULE PO SCH (08:04)
[2019-09-18] MEDS: BUDESONIDE/FORMOTEROL FUMARATE 160/4.5 60 PUFFS/INHALER INH SCH ×2 (08:04→22:07)
[2019-09-18] MEDS: LACTOBACILLUS ACIDOPHILUS (FLORANEX) TAB PO SCH ×4 (08:04→22:06)
[2019-09-18] MEDS: NYSTATIN SUSP 500,000 U/5 ML UDC PO SCH ×4 (08:04→22:07)
[2019-09-18] MEDS: FLUTICASONE PROPIONATE NA SPR 16 GM BTL SCH ×2 (08:04→22:06)
[2019-09-18] MEDS: HEPARIN SOD 5,000 UNIT/0.5 ML VIAL SQ SCH ×2 (08:05→22:20)
[2019-09-18] MEDS: TIOTROPIUM BROMIDE 5 PUFF/90 MCG INH INH SCH (08:37)
--- NOTE | 2019-09-18 16:06 | Hospitalist Progress Note ---
Date of Service September 18, 2019 Assessment & Plan (1) C. difficile colitis: (1) C. difficile colitis: Admitted with weakness, ongoing diarrhea, dehydration stool testing positive for C. 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 Walsh notes: Metastatic lung cancer with mets to pleural space Status post lung resection radiation/ chemo treatment-Follows with Oncology Dr William at [place] CT chest and Chest xray: rt lower lobe infiltrate noted no evidence of pneumonia -no fever or chills , no cough speech eval requested to assess dysphagia /aspiration risk bedside swallow eval does not show any evidence of aspiration VFSS shows no evidence of aspiration (6) Protein-calorie malnutrition, moderate: Due to metastatic malignancy ,poor p.o. 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 CA ) scattered wheeze noted cont PRN Neb tx (8) HTN (hypertension): BP stable now on beta ally for Afib RVR with holding parameters ( hold for SBP < 100 ) (9) Confusion likely delirium check CT head to r/o CVA check ammonia continue reorientation, delirium precautions (10) Right lower leg edema r/o DVT, check Doppler FULL CODE DVT PROPHYLAXIS : moderate to high risk for DVT ordered sub q heparin q12 DISPOSITION : patient agreeable for Rehab/SNF test case developer informed Subjective ff up for c diff colitis noted by to have more confusion last night and today seen sitting up in bed, oriented to person, confused with place answers most questions appropriately denies headache, dizziness, focal neuro symptoms denies abdominal pain, diarrhea no other symptoms Review of Systems Review of Systems: All systems reviewed & are unremarkable except as noted in HPI & below Physical Exam Physical Exam: General- oriented x 1-2, not in distress, speaks in sentences with no effort or accessory muscle use Eyes- anicteric Neck- no JVD Lungs- clear breath sounds bilaterally Heart- normal rate, regular rhythm; no murmurs Abdomen- normal bowel sounds, nondistended, soft, nontender Extremities- mild right lower extremity edema, no calf tenderness Neuro- alert, oriented x 1-2; no gross focal neurologic deficits Skin- warm & dry Results & Data Vital Signs (Past 12 Hours) Vital Signs Temp Pulse Resp BP BP Pulse Ox 09/18/19 15:29 36.7 C 78 18 129/72 95 09/18/19 10:49 37.1 C 78 20 118/73 90 09/18/19 07:50 36.7 C 81 20 121/79 94 09/18/19 04:03 36.3 C L 87 20 120/68 98
--- NOTE | 2019-09-18 16:41 | CT Scan Report ---
HEAD CT NONCONTRAST CT DOSE: 614.27 mGy.cm HISTORY: altered mental status, r/o cva TECHNIQUE: Multiaxial CT images of the head were performed without the use of intravenous contrast. A utomated exposure control was utilized for this study. A dose lowering technique was utilized adheri ng to the principles of ALARA. Comparison: Head CT 09/02/2019. Findings: The paranasal sinuses and mastoid air cells are clear. The calvarium and skull base are int act. There is no mass, hematoma, midline shift, acute infarct. White matter hypodensity is nonspecifi c but suggestive of microvascular ischemic change. The ventricles and sulci demonstrate mild age-rela brittany involutional changes. Impression: No acute intracranial abnormality. Atrophy and microvascular ischemic changes. Electronically signed by: Cm Ramos M.D. 09/18/2019 4:39 PM
--- NOTE | 2019-09-18 18:35 | Ultrasound Report ---
RIGHT LOWER EXTREMITY VENOUS DOPPLER HISTORY: Right leg pain and swelling. COMPARISON STUDY: None. FINDINGS: The right common femoral, superficial femoral, popliteal, and anterior to remains are paten t. Occlusive thrombus identified within one of 2 right posterior tibial and one of 2 right peroneal v eins. IMPRESSION: Right calf DVT as described above. Electronically signed by: Cm Ramos M.D. 09/18/2019 6:33 PM
[2019-09-18] MEDS ORDERED: HEPARIN SODIUM/DEXTROSE 25,000 UNITS/500 ML BAG IV SCH (21:30)
[2019-09-18] MEDS: ASPIRIN 81 MG ECTAB PO SCH (22:06)
[2019-09-18] MEDS: SIMVASTATIN 10 MG TAB PO SCH (22:07)
[2019-09-18] MEDS ORDERED: HEPARIN IV BOLUS 6,000 UNITS in SYRINGE 0 ML IV ONE (22:15)
[2019-09-18 22:49] LABS: Basophils # (auto) 0.02 K/uL (0-0.2); Basophils % (auto) 0.3 %; Eosinophils # (auto) 0.03 K/uL (0-0.5); Eosinophils % (auto) 0.4 %; Hematocrit (blood only) 33.8 % (42-52); Immature Granulocytes # (auto) 0.05 K/uL (0.00-0.02); Immature Granulocytes % (auto) 0.7 %; Lymphocytes # (auto) 0.42 K/uL (1.2-3.4); Lymphocytes % (auto) 6.2 %; Mean Corpuscular Hemoglobin 30.7 pg (25-34); Mean Corpuscular Volume 94.4 fL (80-100); Mean Platelet Volume 10.3 fL (7.4-10.4); Monocytes # (auto) 0.67 K/uL (0.11-0.59); Monocytes % (auto) 9.9 %; Neutrophils # (auto) 5.55 K/uL (1.4-6.5); Neutrophils % (auto) 82.5 %; Platelet Count 107 K/uL (130-400); RDW Coefficient of Variation 17.7 % (11.5-14.5); RDW Standard Deviation 58.1 fL (36.4-46.3); Red Blood Count 3.58 M/uL (4.7-6.1); White Blood Count 6.74 K/uL (4.8-10.8)
[2019-09-18 22:53] LABS: Mean Corpuscular Hgb Conc 32.5 g/dL (32-36)
[2019-09-18 23:00] LABS: INR 1.2 (0.9-1.1); Partial Thromboplastin Ratio 1.2; Partial Thromboplastin Time 31.2 Seconds (21.0-31.0); Prothrombin Time 12.4 Seconds (9.0-12.0)
[2019-09-19 05:42] LABS: Basophils # (auto) 0.02 K/uL (0-0.2); Basophils % (auto) 0.3 %; Eosinophils # (auto) 0.06 K/uL (0-0.5); Eosinophils % (auto) 0.9 %; Hematocrit (blood only) 34.5 % (42-52); Immature Granulocytes # (auto) 0.05 K/uL (0.00-0.02); Immature Granulocytes % (auto) 0.8 %; Lymphocytes # (auto) 0.37 K/uL (1.2-3.4); Lymphocytes % (auto) 5.6 %; Mean Corpuscular Hemoglobin 30.5 pg (25-34); Mean Corpuscular Hgb Conc 31.9 g/dL (32-36); Mean Corpuscular Volume 95.6 fL (80-100); Mean Platelet Volume 10.8 fL (7.4-10.4); Monocytes # (auto) 0.66 K/uL (0.11-0.59); Neutrophils # (auto) 5.42 K/uL (1.4-6.5); Neutrophils % (auto) 82.4 %; Platelet Count 123 K/uL (130-400); RDW Coefficient of Variation 17.8 % (11.5-14.5); RDW Standard Deviation 59.1 fL (36.4-46.3); Red Blood Count 3.61 M/uL (4.7-6.1); White Blood Count 6.58 K/uL (4.8-10.8)
[2019-09-19] MEDS: RASPBERRY SYRUP 5 ML UDP PO SCH ×3 (05:43→17:32)
[2019-09-19] MEDS: VANCOMYCIN HCL 250 MG/5 ML SOLN PO SCH ×3 (05:43→17:53)
[2019-09-19 06:00] LABS: Partial Thromboplastin Ratio > 5.1
[2019-09-19 06:08] LABS: BUN Creatinine Ratio 12.9 (10-20); Calcium 8.2 mg/dl (8.5-10.1); Est GFR (African American) 41.1; Est GFR (Non-African American) 35.5; Potassium 4.4 mmol/L (3.5-5.1)
[2019-09-19 06:37] LABS: Partial Thromboplastin Time > 139.0 Seconds (21.0-31.0)
[2019-09-19] MEDS: NYSTATIN SUSP 500,000 U/5 ML UDC PO SCH ×5 (08:23→20:48)
[2019-09-19] MEDS: CALCITRIOL 0.25 MCG CAPSULE PO SCH (08:23)
[2019-09-19] MEDS: LACTOBACILLUS ACIDOPHILUS (FLORANEX) TAB PO SCH ×4 (08:23→20:48)
[2019-09-19] MEDS: METOPROLOL TARTRATE 25 MG TAB PO SCH ×2 (08:23→20:49)
[2019-09-19] MEDS: FLUTICASONE PROPIONATE NA SPR 16 GM BTL SCH ×2 (08:23→20:47)
[2019-09-19] MEDS: BUDESONIDE/FORMOTEROL FUMARATE 160/4.5 60 PUFFS/INHALER INH SCH ×2 (08:24→20:49)
[2019-09-19] MEDS: CHOLECALCIFEROL 1,000 UNITS TAB PO SCH (08:24)
[2019-09-19] MEDS: TIOTROPIUM BROMIDE 5 PUFF/90 MCG INH INH SCH (08:24)
[2019-09-19] MEDS: VITAMIN B COMPLEX TAB PO SCH (08:24)
[2019-09-19] MEDS: allopurinoL 300 MG TAB PO SCH (08:24)
[2019-09-19 08:25] LABS: Partial Thromboplastin Ratio 2.5
[2019-09-19 08:29] LABS: Partial Thromboplastin Time 68.2 Seconds (21.0-31.0)
[2019-09-19] MEDS ORDERED: ENOXAPARIN 80 MG/0.8 ML SYR SQ ONE (10:00)
[2019-09-19] MEDS ORDERED: STOP HEPARIN ORDER SCH (10:15)
[2019-09-19 15:58] LABS: Partial Thromboplastin Ratio 1.2; Partial Thromboplastin Time 31.6 Seconds (21.0-31.0)
[2019-09-19] MEDS: ASPIRIN 81 MG ECTAB PO SCH (20:49)
[2019-09-19] MEDS: SIMVASTATIN 10 MG TAB PO SCH (20:49)
[2019-09-19] MEDS: ENOXAPARIN 80 MG/0.8 ML SYR SQ SCH (20:58)
[2019-09-20] MEDS: VANCOMYCIN HCL 250 MG/5 ML SOLN PO SCH (01:29)
[2019-09-20] MEDS: RASPBERRY SYRUP 5 ML UDP PO SCH ×3 (01:30→19:18)
--- NOTE | 2019-09-20 07:21 | Hospitalist Progress Note ---
Date of Service delayed entry date of service 09/19/19 September 20, 2019 Assessment & Plan (1) C. difficile colitis: (1) C. difficile colitis: Admitted with weakness, ongoing diarrhea, dehydration stool testing positive for C. difficile on Vancomycin 250mg QID diarrhea resolved completed 10 day course of PO Vancomycin (2) Right Lower Leg DVT, in the setting of Lung Cancer - Doppler US Right Lower Extremity: - FINDINGS: The right common femoral, superficial femoral, popliteal, and anterior to remains are patent. Occlusive thrombus identified within one of 2 right posterior tibial and one of 2 right peroneal veins. IMPRESSION: Right calf DVT as described above. - Heparin drip started, transitioned to Lovenox 1mg/kg q12h - discussed with Make Up Editor Dr. Sousa - will need close monitoring of renal function and platelet count if crea clearance is below 30, will need to reduce Lovenox to 1mg/kg Daily - follow up with Make Up Editor/Oncologist Dr. 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 Walsh notes: Metastatic lung cancer with mets to pleural space Status post lung resection radiation/ chemo treatment-Follows with Oncology Dr William at [place] CT chest and Chest xray: rt lower lobe infiltrate noted no evidence of pneumonia -no fever or chills , no cough speech eval requested to assess dysphagia /aspiration risk bedside swallow eval does not show any evidence of aspiration VFSS shows no evidence of aspiration (7) Protein-calorie malnutrition, moderate: Due to metastatic malignancy ,poor p.o. 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 after dx with Lung CA ) scattered wheeze noted cont PRN Neb tx (9) HTN (hypertension): BP stable now on beta ally for Afib RVR with holding parameters ( hold for SBP < 100 ) (10) Confusion likely delirium CT head: no acute CVA ammonia: normal continue reorientation, delirium precautions FULL CODE DISPOSITION : d/c to Rehab ff up with PCP 1 week after discharge from Rehab ff up with Oncologist 1-2 weeks Subjective ff up for C diff colitis resting in bed, comfortable answers questions appropriately no abdominal pain, nausea, diarrhea no leg pain no bleeding no other symptoms Review of Systems Review of Systems: All systems reviewed & are unremarkable except as noted in HPI & below Physical Exam Physical Exam: General- oriented x 2, not in distress, speaks in sentences with no effort or accessory muscle use Eyes- anicteric Neck- no JVD Lungs- clear BS BL, no rales, no wheezing Heart- normal rate, regular rhythm; no murmurs Abdomen- normal bowel sounds, nondistended, soft, nontender Extremities- mild right lower leg edema, no calf tenderness Neuro- alert, oriented x 2; no gross focal neurologic deficits Skin- warm & dry Results & Data Vital Signs (Past 12 Hours) Vital Signs Temp Pulse Resp BP BP Pulse Ox 09/20/19 03:20 36.8 C 81 20 135/68 96 09/19/19 23:26 36.6 C 89 19 100/66 93 09/19/19 20:00 36.9 C 81 17 122/71 93 Laboratory Results all noted and reviewed
[2019-09-20 07:35] LABS: Basophils # (auto) 0.02 K/uL (0-0.2); Basophils % (auto) 0.4 %; Eosinophils # (auto) 0.05 K/uL (0-0.5); Eosinophils % (auto) 0.9 %; Hemoglobin 10.3 g/dL (14.0-18.0); Immature Granulocytes # (auto) 0.03 K/uL (0.00-0.02); Immature Granulocytes % (auto) 0.6 %; Lymphocytes # (auto) 0.33 K/uL (1.2-3.4); Lymphocytes % (auto) 6.2 %; Mean Corpuscular Hemoglobin 30.5 pg (25-34); Mean Corpuscular Hgb Conc 32.2 g/dL (32-36); Mean Corpuscular Volume 94.7 fL (80-100); Mean Platelet Volume 11.4 fL (7.4-10.4); Monocytes # (auto) 0.55 K/uL (0.11-0.59); Monocytes % (auto) 10.3 %; Neutrophils # (auto) 4.35 K/uL (1.4-6.5); Neutrophils % (auto) 81.6 %; Platelet Count 112 K/uL (130-400); RDW Coefficient of Variation 18.1 % (11.5-14.5); RDW Standard Deviation 60.8 fL (36.4-46.3); Red Blood Count 3.38 M/uL (4.7-6.1); White Blood Count 5.33 K/uL (4.8-10.8)
[2019-09-20 08:03] LABS: Calcium 8.6 mg/dl (8.5-10.1); Creatinine Clr Calc Pharmacy 32.2 ml/min; Est GFR (Non-African American) 33.6; Potassium 3.8 mmol/L (3.5-5.1)
[2019-09-20] MEDS: LACTOBACILLUS ACIDOPHILUS (FLORANEX) TAB PO SCH ×4 (08:52→20:47)
[2019-09-20] MEDS: FLUTICASONE PROPIONATE NA SPR 16 GM BTL SCH ×2 (08:53→20:45)
[2019-09-20] MEDS: METOPROLOL TARTRATE 25 MG TAB PO SCH ×2 (08:54→20:49)
[2019-09-20] MEDS: CALCITRIOL 0.25 MCG CAPSULE PO SCH (08:55)
[2019-09-20] MEDS: TIOTROPIUM BROMIDE 5 PUFF/90 MCG INH INH SCH (08:55)
[2019-09-20] MEDS: BUDESONIDE/FORMOTEROL FUMARATE 160/4.5 60 PUFFS/INHALER INH SCH ×2 (08:56→20:53)
[2019-09-20] MEDS: VITAMIN B COMPLEX TAB PO SCH (08:57)
[2019-09-20] MEDS: CHOLECALCIFEROL 1,000 UNITS TAB PO SCH (08:58)
[2019-09-20] MEDS: allopurinoL 300 MG TAB PO SCH (08:58)
[2019-09-20] MEDS: ENOXAPARIN 80 MG/0.8 ML SYR SQ SCH ×2 (08:59→20:50)
[2019-09-20] MEDS: NYSTATIN SUSP 500,000 U/5 ML UDC PO SCH ×4 (09:01→20:52)
--- NOTE | 2019-09-20 10:13 | Hospitalist Progress Note ---
Date of Service September 20, 2019 Assessment & Plan (1) C. difficile colitis: (1) C. difficile colitis: Admitted with weakness, ongoing diarrhea, dehydration stool testing positive for C. difficile Placed on vancomycin 250mg QID diarrhea resolved completed 10 day course of PO Vancomycin (2) Right Lower Leg DVT, in the setting of Lung Cancer - Doppler US Right Lower Extremity: - FINDINGS: The right common femoral, superficial femoral, popliteal, and anterior to remains are patent. Occlusive thrombus identified within one of 2 right posterior tibial and one of 2 right peroneal veins. IMPRESSION: Right calf DVT as described above. - discussed with on-call cut off saw operator Dr. Sousa - Heparin drip started, transitioned to Lovenox 1mg/kg q12h - will need close monitoring of renal function and platelet count if crea clearance is below 30, will need to reduce Lovenox to 1mg/kg Daily - follow up with Occupational Therapist'S Assistant/Oncologist Dr. 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 Walsh notes: Metastatic lung cancer with mets to pleural space Status post lung resection radiation/ chemo treatment-Follows with Oncology Dr William at [place] CT chest and Chest xray: rt lower lobe infiltrate noted no evidence of pneumonia -no fever or chills , no cough speech eval requested to assess dysphagia /aspiration risk bedside swallow eval does not show any evidence of aspiration VFSS shows no evidence of aspiration (7) Protein-calorie malnutrition, moderate: Due to metastatic malignancy ,poor p.o. 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 difficile colitis, right lower leg DVT Seen sitting up in bed, watching TV, comfortable, not in distress Patient's visiting at the bedside Patient reports he feels fine overall, in good spirits Denies abdominal pain, nausea, diarrhea No leg pain No bleeding States he is ready and would like to be discharged today Review of Systems Review of Systems: All systems reviewed & are unremarkable except as noted in HPI & below Physical Exam Physical Exam: General- oriented x 2, not in distress, speaks in sentences with no effort or accessory muscle use Eyes- anicteric Neck- no JVD Lungs- clear breath sounds, no crackles, no wheezing bilaterally Heart- normal rate, regular rhythm; no murmurs Abdomen- normal bowel sounds, nondistended, soft, nontender Extremities-mild right lower leg edema with no erythema/warmth, no calf tenderness Neuro- alert, oriented x 2; no gross focal neurologic deficits Skin- warm & dry Results & Data Vital Signs (Past 12 Hours) Vital Signs Temp Pulse Resp BP BP Pulse Ox 09/20/19 07:31 36.6 C 77 18 120/64 99 09/20/19 03:20 36.8 C 81 20 135/68 96 09/19/19 23:26 36.6 C 89 19 100/66 93
--- NOTE | 2019-09-20 10:28 | Discharge Summary ---
Date of Service September 20, 2019 Admission HPI Per Admitting Provider 79-year-old male with a past medical history of lung cancer, COPD, emphysema, gout, hyperlipidemia, hypertension, chronic kidney disease, osteoarthritis, questionable prostate cancer, and sleep apnea was brought in by his tphoyy-os-snx secondary to an altered mental status he had chemo and radiation last Thursday and was brought to the ER on the secondary to confusion. He was also complaining of diarrhea and he was discharged home. Hkiwlhrx-zy-[id number] said since then he is gotten more confused and has had increased diarrhea and periods of rage. System also she cannot get any food or fluids into him and l egs are also becoming swollen. Primary Care Provider: Belle Sousa MD Admission Exam Per Admitting Provider ROS-No Headache, No Visual Changes, No Nausea, No Vomiting, No Fever, No Chills, No Neck Pain or Stiffness, No Chest Pain, No Palpitations, No SOB, No SEGOVIA, No Cough, No Sputum, No Wheezing, +RLQ Abdominal Pain, Positive Diarrhea, No Hematemesis, No Hemoptysis, No Unexpected Weight Loss, No Flank pain, No Melena, No Hematochezia, No Frequency, No Urgency, No Burning, No Hematuria, No Rashes, No Diaphoresis. Appetite is Normal, Confusion Physical Exam Gen-AAO x 2, NAD, Afebrile, Ambulates to BR ok, Confused Head-NCAT, EOMI, PERRLA, Anicteric Sclera, No Posterior Pharyngeal Erythema Neck-Supple, No JVD, No Thyromegaly, No Masses, No LAD, No Bruits Lungs-Clear to Auscultation Bilaterally, No Rales, No Rhonchi, No Wheezing, No Crepitus Chest-No S4, +S1, +S2, No S3, No Murmurs, No Rubs, No Gallops, No Ectopy Abdomen-Soft, Bowel Sounds Present, Non Tender, Non Distended, No Hepatomegaly, No Splenomegaly, No Palpable Masses, No Rebound, No Rigidity, No Guarding Musculoskeletal-Full Range of Motion Bilaterally, No CVAT Extremities-No Cyanosis, No Clubbing, No Edema Nuero-Cranial Nerves II-XII grossly intact, Motor WNL, DTRs WNL, Strength WNL, Non Focal Psych-Cooperative Principal Diagnosis C DIFFICILE COLITIS, ACUTE RIGHT LOWER LEG DVT, CKD 3 Discharge Exam General- oriented x 2, not in distress, speaks in sentences with no effort or accessory muscle use Eyes- anicteric Neck- no JVD Lungs- clear breath sounds, no crackles, no wheezing bilaterally Heart- normal rate, regular rhythm; no murmurs Abdomen- normal bowel sounds, nondistended, soft, nontender Extremities-mild right lower leg edema with no erythema/warmth, no calf tenderness Neuro- alert, oriented x 2; no gross focal neurologic deficits Skin- warm & dry Discharge Data Allergies Allergy/AdvReac Type Severity Reaction Status Date / Time No Known Allergies Allergy Verified 09/05/19 09:13 Consultations 09/05/19 14:16 ED Decision to Admit Stat 09/05/19 20:08 Consult Nephrology Routine 09/08/19 15:18 Consult Cardiology Routine Ordered Studies 09/05/19 11:58 US venous doppler LE BI Stat 09/05/19 20:08 CT chest wo con Routine MR brain wo con Routine US renal/blad retro comp Stat 09/12/19 13:30 FL video swallow Routine 09/18/19 15:57 CT head/brain wo con Stat US venous doppler LE RT Stat Hospital Course (1) C. difficile colitis: (1) C. difficile colitis: Admitted with weakness, ongoing diarrhea, dehydration stool testing positive for C. difficile Placed on vancomycin 250mg QID diarrhea resolved completed 10 day course of PO Vancomycin (2) Right Lower Leg DVT, in the setting of Lung Cancer - Doppler US Right Lower Extremity: - FINDINGS: The right common femoral, superficial femoral, popliteal, and anterior to remains are patent. Occlusive thrombus identified within one of 2 right posterior tibial and one of 2 right peroneal veins. IMPRESSION: Right calf DVT as described above. - discussed with on-call insurance agency manager Dr. Sousa - Heparin drip started, transitioned to Lovenox 1mg/kg q12h (usual Aspirin discontinued) - will need close monitoring of renal function and platelet count, repeat in 2-3 days if crea clearance is below 30, will need to reduce Lovenox to 1mg/kg Daily - follow up with Crab Catcher/Oncologist Dr. William in [place] in 1-2 weeks (3) Djtyl-ju-vnzsesk kidney injury: Acute kidney failure with underlying CKD stage 3 baseline Cr 2 due to dehydration , GI loss creatinine improving, now 1.7, Cre clearance 34 Nephrology consulted -- usual Lasix 20mg po discontinued monitor volume status and resume Lasix PO if needed, monitor renal function -- repeat BUN/Crea, Cr Clearance at Rehab in 3 days after discharge, reduce Lovenox if creatinine clearance below 30 -- will need close outpatient ff up with Nephrology (4) Hypokalemia: Due to ongoing GI loss: Diarrhea Replaced, resolved (5) Atrial fibrillation: Newly diagnosed during this admission Pan Cleaner consulted started Lopressor 25 mg twice daily Anticoagulation is not recommended -- remains in atrial flutter, rate controlled -- ff up with Pan Cleaner in 2 weeks (6) Metastatic lung cancer (metastasis from lung to other site): per Dr. Walsh notes: Metastatic lung cancer with mets to pleural space Status post lung resection radiation/ chemo treatment-Follows with Oncology Dr William at [place] CT chest and Chest xray: rt lower lobe infiltrate noted no evidence of pneumonia -no fever or chills , no cough speech eval requested to assess dysphagia /aspiration risk bedside swallow eval does not show any evidence of aspiration VFSS shows no evidence of aspiration (7) Protein-calorie malnutrition, moderate: Due to metastatic malignancy ,poor p.o. 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 CA ) scattered wheeze noted cont PRN Neb tx (9) HTN (hypertension): BP stable now on beta ally for Afib RVR with holding parameters ( hold for SBP < 100 ) (10) Confusion likely delirium - resolved CT head: no acute CVA ammonia: normal continue reorientation, delirium precautions FULL CODE DISPOSITION : d/c to Rehab ff up with PCP 1 week after discharge from Rehab ff up with Oncologist 1-2 weeks case discussed with patient and his in detail they are understanding, agreeable and comfortable with the plan fo care Total Time Total Time Spent Total Time Spent (In Minutes): 50 minutes Discharge Plan Discharge Items Patient Disposition: Home - Self-Care Reason For Visit: ALTERED,DIARRHEA,ADRIANNE Discharge Diagnosis: Clostridium difficile Colitis, Acute right lower leg DVT, metabolic encephalopathy, Acute Kidney Injury on Chronic Kidney Disease stage III, Metastatic cancer to lung Condition on Discharge: Good Activity: Resume your previous activity Activity Comment: Continue physical therapy and Occupational Therapy Non-emergency contact: Primary Care Provider Call non-emergency contact if: you have any medication questions, your symptoms worsen and you have a fever Follow-up/Referrals: Belle Sousa MD [Primary Care Provider] - Diet: Carb Consistent or DM2 and Heart Healthy Addtl Attending Provider Instructions: Please refer to accompanying discharge summary for further details. Please repeat basic metabolic profile and CBC in 2 to 3 days. Adjust dose of Lovenox as needed. Monitor for confusion, delirium. Follow-up with your care physician 1 week after discharge from rehab. Follow-up with oncologist Dr. William in [place] in 1-2 weeks. Patient planned for chemoradiation with paclitaxel and carboplatin. Inpatient Nephrology service commented that there is risk of worsening renal function with the chemotherapy regimen. He will need close monitoring of renal function and will need to be referred to nephrology clinic. Follow-up with residential assistant at the [facility] in 2 weeks. Other appointments 09/28/2019 12:40 PM Provider Clarisse Godfrey MD Department Vascular Surgery, [facility] 12/01/2019 10:30 AM Provider Taryn Fuentes MD Department Urology, [facility] Pending Studies at Discharge: Yes Studies:: Repeat CBC and basic metabolic profile in 2 to 3 days. Dose Lovenox accordingly. Stand-Alone Forms: My [employer], Smoking Cessation Medications and DC Order Prescriptions: New enoxaparin [Lovenox] 80 mg/0.8 mL Syringe 70 mg subcut BID 30 Days Qty: 42 RF: 2 metoprolol tartrate 25 mg Tablet 25 mg PO BID 30 Days Qty: 60 RF: 2 Continued ondansetron HCl [Zofran] 8 mg tablet 8 mg PO TID PRN (Reason: Nausea) RF: 0 prochlorperazine maleate [Compazine] 10 mg tablet 10 mg PO Q6H PRN (Reason: Nausea) RF: 0 fluticasone propionate 50 mcg/actuation spray,suspension 1 sprays intranasal DAILY PRN (Reason: Congestion) RF: 0 albuterol sulfate 90 mcg/actuation aerosol powdr breath activated 1 puffs INH Q4H PRN (Reason: SHORT OF BREATH) RF: 0 allopurinol 300 mg tablet 300 mg PO QAM RF: 0 calcitriol 0.25 mcg capsule 0.25 mcg PO QAM RF: 0 Symbicort 160-4.5 mcg/actuation HFA aerosol inhaler 2 puffs INH BID RF: 0 Spiriva Respimat 1.25 mcg/actuation mist 2 puffs INH QAM RF: 0 simvastatin 20 mg tablet 10 mg PO [id number] RF: 0 vitamin B complex Tablet 1 tab PO QAM RF: 0 cholecalciferol (vitamin D3) [Vitamin D3] 1,000 unit Capsule 1,000 unit PO QAM RF: 0 coQ10 (ubiquinol) 100 mg Capsule 100 mg PO QAM RF: 0 albuterol sulfate 2.5 mg /3 mL (0.083 %) solution for nebulization 2.5 mg inhalation Q4H PRN (Reason: Shortness Of Breath Or Wheezing) RF: 0 famotidine 10 mg Tablet 10 mg PO UD RF: 0 loperamide [Imodium A-D] 2 mg Capsule 2 mg PO Q3H PRN (Reason: Diarrhea) RF: 0 diphenhydramine HCl [Benadryl] 25 mg Capsule 25 mg PO UD RF: 0 dexamethasone 4 mg tablet 12 mg PO UD RF: 0 Discontinued furosemide 20 mg tablet 20 mg PO QAM RF: 0 metoprolol succinate 25 mg capsule,sprinkle,ER 24hr 50 mg PO QAM RF: 0 aspirin 81 mg Tablet,Delayed Release (Dr/Ec) 81 mg PO HS RF: 0 paclitaxel 6 mg/mL Concentrate 0 mg IV WE RF: 0 carboplatin 10 mg/mL Solution 0 mg IV WE RF: 0 Discharge Orders: Discharge Order (Routine); Ordered 09/20/19 Ordered By: Jayson Brown Admission Data Admit Date/Time: 09/05/19 18:06 Attending Provider: Jayson Brown Admit Provider: Sergio Gonzalez Primary Care Provider: Belle Sousa Other Providers: Sergio Gonzalez ; Yanira Shannon ; Jeffry Baires ; Tamera Walsh ; [facility] ; [facility]
[2019-09-20] MEDS: ASPIRIN 81 MG ECTAB PO SCH (20:45)
[2019-09-20] MEDS: SIMVASTATIN 10 MG TAB PO SCH (20:54)
[2019-09-21 07:44] LABS: Basophils # (auto) 0.03 K/uL (0-0.2); Basophils % (auto) 0.6 %; Eosinophils # (auto) 0.06 K/uL (0-0.5); Eosinophils % (auto) 1.2 %; Hematocrit (blood only) 32.5 % (42-52); Hemoglobin 10.5 g/dL (14.0-18.0); Immature Granulocytes # (auto) 0.04 K/uL (0.00-0.02); Immature Granulocytes % (auto) 0.8 %; Lymphocytes % (auto) 7.7 %; Mean Corpuscular Hemoglobin 30.9 pg (25-34); Mean Corpuscular Hgb Conc 32.3 g/dL (32-36); Mean Corpuscular Volume 95.6 fL (80-100); Mean Platelet Volume 10.9 fL (7.4-10.4); Monocytes # (auto) 0.52 K/uL (0.11-0.59); Monocytes % (auto) 10.1 %; Neutrophils # (auto) 4.12 K/uL (1.4-6.5); Neutrophils % (auto) 79.6 %; Platelet Count 124 K/uL (130-400); RDW Coefficient of Variation 18.3 % (11.5-14.5); RDW Standard Deviation 61.6 fL (36.4-46.3); White Blood Count 5.17 K/uL (4.8-10.8)
[2019-09-21] MEDS: LACTOBACILLUS ACIDOPHILUS (FLORANEX) TAB PO SCH ×2 (08:17→12:13)
[2019-09-21] MEDS: METOPROLOL TARTRATE 25 MG TAB PO SCH (08:18)
[2019-09-21] MEDS: FLUTICASONE PROPIONATE NA SPR 16 GM BTL SCH (08:18)
[2019-09-21] MEDS: ENOXAPARIN 80 MG/0.8 ML SYR SQ SCH ×2 (08:19→09:12)
[2019-09-21] MEDS: CALCITRIOL 0.25 MCG CAPSULE PO SCH (08:20)
[2019-09-21] MEDS: BUDESONIDE/FORMOTEROL FUMARATE 160/4.5 60 PUFFS/INHALER INH SCH (08:20)
[2019-09-21] MEDS: VITAMIN B COMPLEX TAB PO SCH (08:20)
[2019-09-21] MEDS: CHOLECALCIFEROL 1,000 UNITS TAB PO SCH (08:21)
[2019-09-21] MEDS: NYSTATIN SUSP 500,000 U/5 ML UDC PO SCH ×2 (08:21→12:13)
[2019-09-21] MEDS: allopurinoL 300 MG TAB PO SCH (08:21)
[2019-09-21 08:22] LABS: BUN Creatinine Ratio 10.7 (10-20); Calcium 8.9 mg/dl (8.5-10.1); Creatinine Clr Calc Pharmacy 32.9 ml/min; Est GFR (African American) 39.5; Est GFR (Non-African American) 34.1; Potassium 4.3 mmol/L (3.5-5.1)
[2019-09-21] MEDS: TIOTROPIUM BROMIDE 5 PUFF/90 MCG INH INH SCH (08:22)
[2019-09-21] MEDS ORDERED: SODIUM CHLORIDE 0.65% NA SOLN 45 ML (OCEAN) ONE (13:20)
--- NOTE | 2019-09-21 14:12 | Discharge Summary ---
Date of Service September 21, 2019 Admission HPI Per Admitting Provider 79-year-old male with a past medical history of lung cancer, COPD, emphysema, gout, hyperlipidemia, hypertension, chronic kidney disease, osteoarthritis, questionable prostate cancer, and sleep apnea was brought in by his [id number] secondary to an altered mental status he had chemo and radiation last Thursday and was brought to the ER on the secondary to confusion. He was also complaining of diarrhea and he was discharged home. [id number] said since then he is gotten more confused and has had increased diarrhea and periods of rage. System also she cannot get any food or fluids into him and l egs are also becoming swollen. Primary Care Provider: Belle Sousa MD Principal Diagnosis Clostridium difficile Colitis, Acute right lower leg DVT, metabolic encephalopathy, Acute Kidney Injury on Chronic Kidney Disease stage III, Metastatic cancer to lung Discharge Exam Constitutional + ill appearing and + thin; no acute distress Eyes PERRL, conjunctivae normal, anicteric sclerae ENMT Mouth: + oral mucosal abnormality (Dry oral mucosa) Neck trachea midline, no thyromegaly Respiratory no respiratory distress and no cough Auscultation: no crackles and no wheezes Cardiovascular Rate/Rhythm: + abnormal rhythm (Afib ) Gastrointestinal (Abdomen) Inspection/Auscultation: normal bowel sounds Percussion/Palpation: abdomen soft; abdomen nontender Skin no rashes, warm and dry Neurologic PERRL, EOMI, accommodation nl, no face palsy, no dysarthria Psychiatric A+Ox3, euthymic affect Orientation: alert Discharge Data Allergies Allergy/AdvReac Type Severity Reaction Status Date / Time No Known Allergies Allergy Verified 09/05/19 09:13 Consultations 09/05/19 14:16 ED Decision to Admit Stat 09/05/19 20:08 Consult Nephrology Routine 09/08/19 15:18 Consult Cardiology Routine Ordered Studies 09/05/19 11:58 US venous doppler LE BI Stat 09/05/19 20:08 CT chest wo con Routine MR brain wo con Routine US renal/blad retro comp Stat 09/12/19 13:30 FL video swallow Routine 09/18/19 15:57 CT head/brain wo con Stat US venous doppler LE RT Stat Hospital Course (1) C. difficile colitis: (1) C. difficile colitis: Admitted with weakness, ongoing diarrhea, dehydration stool testing positive for C. difficile Placed on vancomycin 250mg QID diarrhea resolved completed 10 day course of PO Vancomycin (2) Right Lower Leg DVT, in the setting of Lung Cancer - Doppler US Right Lower Extremity: - FINDINGS: The right common femoral, superficial femoral, popliteal, and anterior to remains are patent. Occlusive thrombus identified within one of 2 right posterior tibial and one of 2 right peroneal veins. IMPRESSION: Right calf DVT as described above. - discussed with on-call intelligence manager Dr. Sousa - Heparin drip started, transitioned to Lovenox 1mg/kg q12h (usual Aspirin discontinued) - will need close monitoring of renal function and platelet count, repeat in 2-3 days if crea clearance is below 30, will need to reduce Lovenox to 1mg/kg Daily - follow up with Twisting Machine Operator/Oncologist Dr. William in [place] in 1-2 weeks (3) Zzsaq-ju-zwkkuqv kidney injury: Acute kidney failure with underlying CKD stage 3 baseline Cr 2 due to dehydration , GI loss creatinine improving, now 1.7, Cre clearance 34 Nephrology consulted -- usual Lasix 20mg po discontinued monitor volume status and resume Lasix PO if needed, monitor renal function -- repeat BUN/Crea, Cr Clearance at Rehab in 3 days after discharge, reduce Lovenox if creatinine clearance below 30 -- will need close outpatient ff up with Nephrology (4) Hypokalemia: Due to ongoing GI loss: Diarrhea Replaced, resolved (5) Atrial fibrillation: Newly diagnosed during this admission Manager [employer] consulted started Lopressor 25 mg twice daily Anticoagulation is not recommended -- remains in atrial flutter, rate controlled -- ff up with Manager Mission in 2 weeks (6) Metastatic lung cancer (metastasis from lung to other site): per Dr. Walsh notes: Metastatic lung cancer with mets to pleural space Status post lung resection radiation/ chemo treatment-Follows with Oncology Dr William at [place] CT chest and Chest xray: rt lower lobe infiltrate noted no evidence of pneumonia -no fever or chills , no cough speech eval requested to assess dysphagia /aspiration risk bedside swallow eval does not show any evidence of aspiration VFSS shows no evidence of aspiration (7) Protein-calorie malnutrition, moderate: Due to metastatic malignancy ,poor p.o. 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 CA ) scattered wheeze noted cont PRN Neb tx (9) HTN (hypertension): BP stable now on beta ally for Afib RVR with holding parameters ( hold for SBP < 100 ) (10) Confusion likely delirium - resolved CT head: no acute CVA ammonia: normal continue reorientation, delirium precautions FULL CODE DISPOSITION : d/c to Rehab ff up with PCP 1 week after discharge from Rehab ff up with Oncologist 1-2 weeks case discussed with patient and his in detail they are understanding, agreeable and comfortable with the plan fo care Total Time Total Time Spent Total Time Spent (In Minutes): 35 MINS Total Time Includes: Examination of the Patient and Discharge Planning Discharge Plan Discharge Items Patient Disposition: Home - Self-Care Reason For Visit: ALTERED,DIARRHEA,ADRIANNE Discharge Diagnosis: Clostridium difficile Colitis, Acute right lower leg DVT, metabolic encephalopathy, Acute Kidney Injury on Chronic Kidney Disease stage III, Metastatic cancer to lung Condition on Discharge: Good Activity: Resume your previous activity Activity Comment: Continue physical therapy and Occupational Therapy Non-emergency contact: Primary Care Provider Call non-emergency contact if: you have any medication questions, your symptoms worsen and you have a fever Follow-up/Referrals: Belle Sousa MD [Primary Care Provider] - Diet: Carb Consistent or DM2 and Heart Healthy Addtl Attending Provider Instructions: Please refer to accompanying discharge summary for further details. Please repeat basic metabolic profile and CBC in 2 to 3 days. Adjust dose of Lovenox as needed. Monitor for confusion, delirium. Follow-up with your care physician 1 week after discharge from rehab. Follow-up with oncologist Dr. William in [place] in 1-2 weeks. Patient planned for chemoradiation with paclitaxel and carboplatin. Inpatient Nephrology service commented that there is risk of worsening renal function with the chemotherapy regimen. He will need close monitoring of renal function and will need to be referred to nephrology clinic. Follow-up with construction grip at the [facility] in 2 weeks. Other appointments 09/28/2019 12:40 PM Provider Clarisse Godfrey MD Department Vascular Surgery, [facility] 12/01/2019 10:30 AM Provider Taryn Fuentes MD Department Urology, [facility] Pending Studies at Discharge: Yes Studies:: Repeat CBC and basic metabolic profile in 2 to 3 days. Dose Lovenox accordingly. Stand-Alone Forms: My [facility], Smoking Cessation Medications and DC Order Prescriptions: New enoxaparin [Lovenox] 80 mg/0.8 mL Syringe 70 mg subcut BID 30 Days Qty: 42 RF: 2 metoprolol tartrate 25 mg Tablet 25 mg PO BID 30 Days Qty: 60 RF: 2 Nasal Mist 0.9 % aerosol,spray 2 sprays INTNAS BID PRN (Reason: dry nasal passages) Qty: 126 RF: 0 Continued ondansetron HCl [Zofran] 8 mg tablet 8 mg PO TID PRN (Reason: Nausea) RF: 0 prochlorperazine maleate [Compazine] 10 mg tablet 10 mg PO Q6H PRN (Reason: Nausea) RF: 0 fluticasone propionate 50 mcg/actuation spray,suspension 1 sprays intranasal DAILY PRN (Reason: Congestion) RF: 0 albuterol sulfate 90 mcg/actuation aerosol powdr breath activated 1 puffs INH Q4H PRN (Reason: SHORT OF BREATH) RF: 0 allopurinol 300 mg tablet 300 mg PO QAM RF: 0 calcitriol 0.25 mcg capsule 0.25 mcg PO QAM RF: 0 Symbicort 160-4.5 mcg/actuation HFA aerosol inhaler 2 puffs INH BID RF: 0 Spiriva Respimat 1.25 mcg/actuation mist 2 puffs INH QAM RF: 0 simvastatin 20 mg tablet 10 mg PO [id number] RF: 0 vitamin B complex Tablet 1 tab PO QAM RF: 0 cholecalciferol (vitamin D3) [Vitamin D3] 1,000 unit Capsule 1,000 unit PO QAM RF: 0 coQ10 (ubiquinol) 100 mg Capsule 100 mg PO QAM RF: 0 albuterol sulfate 2.5 mg /3 mL (0.083 %) solution for nebulization 2.5 mg inhalation Q4H PRN (Reason: Shortness Of Breath Or Wheezing) RF: 0 famotidine 10 mg Tablet 10 mg PO UD RF: 0 loperamide [Imodium A-D] 2 mg Capsule 2 mg PO Q3H PRN (Reason: Diarrhea) RF: 0 diphenhydramine HCl [Benadryl] 25 mg Capsule 25 mg PO UD RF: 0 dexamethasone 4 mg tablet 12 mg PO UD RF: 0 Discontinued furosemide 20 mg tablet 20 mg PO QAM RF: 0 metoprolol succinate 25 mg capsule,sprinkle,ER 24hr 50 mg PO QAM RF: 0 aspirin 81 mg Tablet,Delayed Release (Dr/Ec) 81 mg PO HS RF: 0 paclitaxel 6 mg/mL Concentrate 0 mg IV WE RF: 0 carboplatin 10 mg/mL Solution 0 mg IV WE RF: 0 Discharge Orders: Discharge Order (Routine); Ordered 09/20/19 Ordered By: Jayson Brown Admission Data Admit Date/Time: 09/05/19 18:06 Attending Provider: Tamera Walsh Admit Provider: Sergio Gonzalez Primary Care Provider: Belle Sousa Other Providers: Sergio Gonzalez ; Yanira Shannon ; Jeffry Baires ; Tamera Walsh ; [facility] ; [facility] Other Interventions: Discharge Summary Assessment (RN) Last Done: 09/21/19 13:20 DC Date/Time DO NOT enter until pt leaves facility: 09/21/19 13:47
--- NOTE | 2019-09-26 14:19 | History & Physical Report ---
Date of Service September 05, 2019 Assessment & Plan (1) Altered mental state: (1) C. difficile colitis: (1) Altered mental status: (2) [id number] kidney injury: (3) Dehydration: (4) Diarrhea: (5) Metastatic cancer to lung: (6) Protein-calorie malnutrition, moderate: (7) Gout: (8) COPD (chronic obstructive pulmonary disease): (9) HTN (hypertension): (10) HLD (hyperlipidemia): (11) Osteoarthritis: DVT Pfx c SC Heparin Patient is on chemo and radiation and may have a pneumonia and I will treat with Rocephin and Zithromax, will get a CT scan of his chest to get a better look at his lungs, without contrast, will get an MRI of the brain wo IVC for the confusion, get a renal ultrasound and place a Quevedo catheter for the acute on chronic kidney injury, gentle IV fluids until seen by renal, pre-albumin, panculture, continue appropriate outpatient medications, monitor daily labs, will be placed on MedSurg/OBS. Of note his ammonia level was normal ROS-No Headache, No Visual Changes, No Nausea, No Vomiting, No Fever, No Chills, No Neck Pain or Stiffness, No Chest Pain, No Palpitations, No SOB, No SEGOVIA, No Cough, No Sputum, No Wheezing, +RLQ Abdominal Pain, Positive Diarrhea, No Hematemesis, No Hemoptysis, No Unexpected Weight Loss, No Flank pain, No Melena, No Hematochezia, No Frequency, No Urgency, No Burning, No Hematuria, No Rashes, No Diaphoresis. Appetite is Normal, Confusion Physical Exam Gen-AAO x 2, NAD, Afebrile, Ambulates to BR ok, Confused Head-NCAT, EOMI, PERRLA, Anicteric Sclera, No Posterior Pharyngeal Erythema Neck-Supple, No JVD, No Thyromegaly, No Masses, No LAD, No Bruits Lungs-Clear to Auscultation Bilaterally, No Rales, No Rhonchi, No Wheezing, No Crepitus Chest-No S4, +S1, +S2, No S3, No Murmurs, No Rubs, No Gallops, No Ectopy Abdomen-Soft, Bowel Sounds Present, Non Tender, Non Distended, No Hepatomegaly, No Splenomegaly, No Palpable Masses, No Rebound, No Rigidity, No Guarding Musculoskeletal-Full Range of Motion Bilaterally, No CVAT Extremities-No Cyanosis, No Clubbing, No Edema Nuero-Cranial Nerves II-XII grossly intact, Motor WNL, DTRs WNL, Strength WNL, Non Focal Psych-Cooperative History of Present Illness 79-year-old male with a past medical history of lung cancer, COPD, emphysema, gout, hyperlipidemia, hypertension, chronic kidney disease, osteoarthritis, questionable prostate cancer, and sleep apnea was brought in by his [id number] secondary to an altered mental status he had chemo and radiation last Thursday and was brought to the ER on the secondary to confusion. He was also complaining of diarrhea and he was discharged home. [id number] said since then he is gotten more confused and has had increased diarrhea and periods of rage. System also she cannot get any food or fluids into him and legs are also becoming swollen. Primary Care Provider: Belle Sousa MD Allergies Allergy/AdvReac Type Severity Reaction Status Date / Time No Known Allergies Allergy Verified 09/05/19 09:13 Home Medications Home Medications Medication Instructions Recorded Confirmed Type fluticasone propionate 50 1 sprays INTRANASAL DAILY PRN gm 05/20/19 09/05/19 History mcg/actuation nasal spray,suspension albuterol sulfate 90 mcg/actuation 1 puffs INH Q4H PRN 05/24/19 09/05/19 History breath activated powder inhaler allopurinol 300 mg tablet 300 mg PO QAM 05/24/19 09/05/19 History budesonide-formoterol HFA 160 2 puffs INH BID 05/24/19 09/05/19 History mcg-4.5 mcg/actuation aerosol inhaler calcitriol 0.25 mcg capsule 0.25 mcg PO QAM 05/24/19 09/05/19 History tiotropium bromide 1.25 2 puffs INH QAM 05/24/19 09/05/19 History mcg/actuation mist for inhalation cholecalciferol (vitamin D3) 1,000 unit PO QAM 05/25/19 09/05/19 History [Vitamin D3] coQ10 (ubiquinol) 100 mg PO QAM 05/25/19 09/05/19 History vitamin B complex 1 tab PO QAM 05/25/19 09/05/19 History ondansetron HCl 8 mg tablet 8 mg PO TID PRN 07/20/19 09/05/19 History prochlorperazine maleate 10 mg 10 mg PO Q6H PRN tab 07/20/19 09/05/19 History tablet simvastatin 20 mg tablet 10 mg PO [id number] tab 07/20/19 09/05/19 History albuterol sulfate 2.5 mg INHALATION Q4H PRN 09/02/19 09/05/19 History dexamethasone 12 mg PO UD 09/02/19 09/05/19 History diphenhydramine HCl [Benadryl] 25 mg PO UD 09/02/19 09/05/19 History famotidine 10 mg PO UD 09/02/19 09/05/19 History loperamide [Imodium A-D] 2 mg PO Q3H PRN 09/02/19 09/05/19 History enoxaparin [Lovenox] 70 mg SUBCUT BID 30 Days #42 ml 09/20/19 Rx metoprolol tartrate 25 mg PO BID 30 Days #60 tab 09/20/19 Rx sodium chloride [Nasal Mist] 2 sprays INTNAS BID PRN #126 ml 09/21/19 Rx Past Med/Surg History Medical History Bronchitis (Deleted) Cancer LUNG CANCER COPD (chronic obstructive pulmonary disease) Emphysema of lung Gout Hyperlipidemia Hypertension Kidney disease (Deleted) "FOLLOWS WITH NEPHROLOGY" Lesion of left lung Osteoarthritis Prostate cancer ? NEW DX PER PETS SCAN Right pulmonary lesion Sleep apnea CPAP Surgical History H/O aortic aneurysm repair 2018 History of colonoscopy History of tooth extraction S/P bronchoscopy with biopsy (11/04/17) PER (PROCEDURE ATTEMPTED) S/P bronchoscopy with biopsy (06/10/19) Endobronchial Ultrasound with Biopsies Dr. Frazier 06/10/19 S/P partial lobectomy of lung (12/17/11) Dr. Grajeda Status post partial lobectomy of lung Family History Mother Hypertension Stroke Family history of diabetes mellitus Father Suicide Social History Preferred Language: [place] Communication Ability: Effective Visual Impairment: No Limitations [employer] Required: No Beliefs That Will Affect Care: None marital status: Current Living Situation: Spouse current occupational status: retired Feels Safe at Home: Yes Smoking Status: Former smoker Tobacco Type: cigarettes ; Cigarettes Per Day: 10 ; Second Hand Exposure: No ; Hx Alcohol Use: Yes Alcohol type: wine Alcohol type Comment: rarely Hx Substance Use: No Code Status & VTE Plan VTE Prophylaxis Plan VTE Prophylaxis will be ordered: Yes
== END 2019-09-21 13:47 | DRG 371 ==
LOC: ED 08:49 → SUATTDRO 15:23 → 4W 15:23 → SUATTDRO 18:06 → 4W 19:46 → 2N 09-08 13:23